=== PATIENT | female | born 1975 | race African-American/Black ===

== ENCOUNTER 2019-03-26 23:06 | Emergency (ER) | payer OTHER ==
[2019-03-27] MEDS ORDERED: ONDANSETRON 4 MG/2 ML VIAL ONE (00:08)
[2019-03-27] MEDS ORDERED: MORPHINE 2 MG/ML SYR ONE (00:08)
[2019-03-27 00:10] LABS: Absolute Lymphocytes (CBC) 3.3 K/uL (0.7-4.9); Basophils % 0.5 % (0-1.3); Eosinophils % 1.7 % (0-4.4); Lymphocytes % 30.7 % (15.3-44.8); MPV 10.2 fL (7.6-11.3); Monocytes % 7.7 % (3.3-12.3); RBC Red Blood Cell Count 5.09 M/uL (3.86-4.86)
[2019-03-27 00:25] LABS: Albumin 4.1 g/dL (3.4-5.0); Bilirubin Direct 0.2 mg/dL (0-0.2); Potassium 3.7 mmol/L (3.5-5.1); Protein, Total 8.2 g/dL (6.4-8.2)
[2019-03-27 01:09] LABS: Urine Blood NEGATIVE (NEG); Urine Glucose NEGATIVE (NEG); Urine Protein TRACE (NEG)
--- NOTE | 2019-03-27 02:36 | EDPHYS ---
Physician Documentation [facility] Name: Grayson Morales Age: 43 yrs Sex: Female : 1975 Arrival Date: 03/26/2019 Time: 23:13 Bed 14 Private MD: ED Physician Zak Irving HPI: 03/26 23:20 This 43 yrs old Black Female presents to ER via Ambulatory with complaints of Abdominal jmm Pain. 23:20 The patient presents with abdominal pain in the epigastric area. Onset: The jmm symptoms/episode began/occurred gradually, 1 day(s) ago. The symptoms radiate to back. Associated signs and symptoms: Pertinent negatives: fever. This is a 43 year old female with a history of asthma that presents to the ED with complaints of epigastric abdominal pain which radiates to her back beginning 2 days ago. Patient states having chronic episodes of acid reflux but worse over the past 2 days. . 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 - Social history:: Smoking status: Patient uses tobacco products, smokes one-half pack cigarettes per day, Patient uses alcohol, on a daily basis. street drugs, marijuana. - Ebola Screening: : Patient negative for fever greater than or equal to 101.5 degrees Fahrenheit, and additional compatible Ebola Virus Disease symptoms Patient denies exposure to infectious person Patient denies travel to an Ebola-affected area in the 21 days before illness onset. ROS: 23:20 Constitutional: Negative for fever, chills, and weight loss, Cardiovascular: Negative jmm for chest pain, palpitations, and edema, Respiratory: Negative for shortness of breath, cough, wheezing, and pleuritic chest pain. 23:20 Abdomen/GI: Positive for abdominal pain. 23:20 Back: Positive for radiated pain. 23:20 All other systems are negative. Exam: 23:20 Constitutional: This is a well developed, well nourished patient who is awake, alert, jmm and in no acute distress. Head/Face: atraumatic. Eyes: EOMI, no conjunctival erythema appreciated ENT: Moist Mucus Membranes Neck: Trachea midline, Supple Chest/axilla: Normal chest wall appearance and motion. Cardiovascular: Regular rate and rhythm. No edema appreciated Respiratory: Normal respirations, no respiratory distress appreciated 23:20 Back: Normal ROM Skin: General appearance color normal MS/ Extremity: Moves all extremities, no obvious deformities appreciated, no edema noted to the lower extremities Neuro: Awake and alert, normal gait Psych: Behavior is normal, Mood is normal, Patient is cooperative and pleasant 23:20 Abdomen/GI: Inspection: abdomen appears normal, Bowel sounds: normal, Palpation: soft, moderate abdominal tenderness, in the right upper quadrant and left upper quadrant. Vital Signs: 23:25 BP 168 / 110; Pulse 84; Resp 17; Temp 98.6; Pulse Ox 100% ; Weight 63.05 kg; Height 5 rr5 ft. 7 in. (170.18 cm); Pain 9/10; 03/27 00:00 BP 159 / 92; Pulse 88; Resp 17; Pulse Ox 99% on R/A; rr5 00:30 Pain 0/10; rr5 00:50 BP 152 / 85; Pulse 85; Resp 17; Pulse Ox 99% on R/A; rr5 01:50 BP 144 / 80; Pulse 76; Resp 19; Pulse Ox 99% on R/A; Pain 0/10; rr5 02:48 BP 131 / 75; Pulse 72; Resp 17; Temp 98.3; Pulse Ox 99% ; Pain 0/10; rr5 03/26 23:25 Body Mass Index 21.77 (63.05 kg, 170.18 cm) rr5 MDM: 03/26 23:20 Patient medically screened. [facility] 03/27 02:35 Data reviewed: vital signs, nurses notes. Counseling: I had a detailed discussion with ana the patient and/or guardian regarding: the historical points, exam findings, and any diagnostic results supporting the discharge/admit diagnosis, lab results, radiology results, the need for outpatient follow up, to return to the emergency department if symptoms worsen or persist or if there are any questions or concerns that arise at home. ED course: Pain relieved in the ED. Patient is advised to follow up with pcp or gi for further evaluation. patient understood and agrees with the plan of care. . 03/26 23:32 Order name: Basic Metabolic Panel [facility] 03/26 23:32 Order name: CBC with Diff [facility] 03/26 23:32 Order name: Creatinine for Radiology [facility] 03/26 23:32 Order name: Hepatic Function; Complete Time: 00:31 [facility] 03/26 23:32 Order name: Lipase; Complete Time: 00:31 [facility] 03/27 00:14 Order name: CBC with Automated Diff; Complete Time: 00:16 [facility] 03/26 23:32 Order name: CT Abd/Pelvis - IV Contrast Only [facility] 03/27 00:17 Order name: Urine Dipstick--Ancillary (enter results); Complete Time: 01:44 [facility] 03/27 00:17 Order name: Urine --Ancillary (enter results) [facility] 03/27 00:26 Order name: Creatinine (Radiology Only); Complete Time: 00:31 [facility] 03/27 00:27 Order name: Basic Metabolic Panel; Complete Time: 00:31 [facility] 03/27 01:11 Order name: Urine --Ancillary; Complete Time: 01:44 [facility] 03/26 23:32 Order name: IV Saline Lock; Complete Time: 23:59 [facility] 03/26 23:32 Order name: Labs collected and sent; Complete Time: 23:59 [facility] 03/26 23:32 Order name: Urine Dipstick-Ancillary (obtain specimen); Complete Time: 23:58 [facility] Administered Medications: 03/26 23:55 Drug: Zofran 4 mg Route: IVP; Site: right forearm; rr5 03/27 00:55 Follow up: Response: No adverse reaction 5 03/26 23:57 Drug: morphine 4 mg Route: IVP; Site: right forearm; rr5 03/27 01:00 Follow up: Response: Marked relief of symptoms rr5 Disposition: 08:23 Co-signature as Attending Physician, Zak Irving MD I agree with the assessment and hoang plan of care. Disposition: 03/27/19 02:36 Discharged to Home. Impression: Generalized abdominal pain. - Condition is Stable. - Discharge Instructions: Abdominal Pain, Adult. - Prescriptions for Zofran ODT 4 mg Oral tablet,disintegrating - place 1 tablet by TRANSLINGUAL route every 4-6 hours; 20 tablet. Bentyl 20 mg Oral Tablet - take 1 tablet by ORAL route every 6 hours As needed; 20 tablet. Ultracet 37.5- 325 mg Oral Tablet - take 1 tablet by ORAL route every 6 hours - for up to 5 days; do not exceed 8 tablets per day.; 12 tablet. - Medication Reconciliation Form, Thank You Letter, Antibiotic Education, Prescription Opioid Use, Work release form, Family Work Release form. - Follow up: Rodrigo Roberto MD; When: 2 - 3 days; Reason: Recheck today's complaints, Continuance of care, Re-evaluation by your physician. Signatures: Dispatcher [employer] EDZak Harrington MD MD cha Mickail, Joel, PA PA Joel Fisher, RN RN rr5 Corrections: (The following items were deleted from the chart) 02:49 02:36 03/27/2019 02:36 Discharged to Home. Impression: Generalized abdominal pain. rr5 Condition is Stable. Forms are Medication Reconciliation Form, Thank You Letter, Antibiotic Education, Prescription Opioid Use. Follow up: Rodrigo Roberto; When: 2 - 3 days; Reason: Recheck today's complaints, Continuance of care, Re-evaluation by your physician. ana
--- NOTE | 2019-03-27 02:36 | ER ---
Nurse's Notes [facility] Name: Grayson Morales Age: 43 yrs Sex: Female : 1975 Arrival Date: 03/26/2019 Time: 23:13 Bed 14 Private MD: Diagnosis: Generalized abdominal pain Presentation: 03/26 23:20 Presenting complaint: Patient states: started yesterday around 1250H in the afternoon rr5 sharp shooting abdominal pain going to my back, i feel bloated too. 30 minutes ago I started to became nauseous. 23:20 Transition of care: patient was not received from another setting of care. Onset of rr5 symptoms was March 25, 2019. Risk Assessment: Do you want to hurt yourself or someone else? Patient reports no desire to harm self or others. Initial Sepsis Screen: Does the patient meet any 2 criteria? No. Patient's initial sepsis screen is negative. Does the patient have a suspected source of infection? No. Patient's initial sepsis screen is negative. Care prior to arrival: Medication(s) given: pepcid, zantac, tums. 23:20 Method Of Arrival: Ambulatory rr5 23:20 Acuity: DEIRDRE 3 rr5 23:20 Note patient denies abnormal BM or urine problem. 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 - Social history:: Smoking status: Patient uses tobacco products, smokes one-half pack cigarettes per day, Patient uses alcohol, on a daily basis. street drugs, marijuana. - Ebola Screening: : Patient negative for fever greater than or equal to 101.5 degrees Fahrenheit, and additional compatible Ebola Virus Disease symptoms Patient denies exposure to infectious person Patient denies travel to an Ebola-affected area in the 21 days before illness onset. Screenin:28 Abuse screen: Denies threats or abuse. Denies injuries from another. Nutritional rr5 screening: No deficits noted. Tuberculosis screening: No symptoms or risk factors identified. Fall Risk IV access (20 points). Total Schneider Fall Scale indicates No Risk (0-24 pts). Assessment: 23:25 General: Appears in no apparent distress. uncomfortable, Behavior is calm, cooperative, rr5 appropriate for age. Pain: Complains of pain in epigastric area Pain radiates to back Pain currently is 9 out of 10 on a pain scale. Quality of pain is described as Pain began gradually, Is intermittent. 23:25 Neuro: Level of Consciousness is awake, alert, obeys commands, Oriented to person, rr5 place, time, situation, Appropriate for age. Cardiovascular: Capillary refill < 3 seconds Patient's skin is warm and dry. Respiratory: Airway is patent Respiratory effort is even, unlabored, Respiratory pattern is regular, symmetrical. GI: Abdomen is flat, Bowel sounds present X 4 quads. Abd is soft Guarding noted in epigastric area Reports upper abdominal pain, bloating, nausea, Patient currently denies diarrhea. : No signs and/or symptoms were reported regarding the genitourinary system. EENT: No signs and/or symptoms were reported regarding the EENT system. Derm: Skin is intact, Skin temperature is warm. Musculoskeletal: Capillary refill < 3 seconds, Range of motion: intact in all extremities. 03/27 00:50 Reassessment: Patient appears in no apparent distress at this time. Patient is alert, rr5 oriented x 3, equal unlabored respirations, skin warm/dry/pink. went to CT scan via wheelchair Patient denies pain at this time. Patient states feeling better. Patient states symptoms have improved. 01:55 Reassessment: Patient appears in no apparent distress at this time. Patient is alert, rr5 oriented x 3, equal unlabored respirations, skin warm/dry/pink. awaiting for result. Patient states feeling better. Patient states symptoms have improved. 02:45 Reassessment: Patient appears in no apparent distress at this time. Patient is alert, rr5 oriented x 3, equal unlabored respirations, skin warm/dry/pink. discharge instruction given and explained without complaints made. Patient denies pain at this time. Patient states feeling better. Patient states symptoms have improved. Vital Signs: 03/26 23:25 BP 168 / 110; Pulse 84; Resp 17; Temp 98.6; Pulse Ox 100% ; Weight 63.05 kg; Height 5 rr5 ft. 7 in. (170.18 cm); Pain 9/10; 03/27 00:00 BP 159 / 92; Pulse 88; Resp 17; Pulse Ox 99% on R/A; rr5 00:30 Pain 0/10; rr5 00:50 BP 152 / 85; Pulse 85; Resp 17; Pulse Ox 99% on R/A; rr5 01:50 BP 144 / 80; Pulse 76; Resp 19; Pulse Ox 99% on R/A; Pain 0/10; rr5 02:48 BP 131 / 75; Pulse 72; Resp 17; Temp 98.3; Pulse Ox 99% ; Pain 0/10; rr5 03/26 23:25 Body Mass Index 21.77 (63.05 kg, 170.18 cm) rr5 ED Course: 03/26 23:13 Patient arrived in ED. es 23:16 Raoul Bates PA is PHCP. jmm 23:16 Zak Irving MD is Attending Physician. jmm 23:21 Joel Jorge, THIAGO is Primary Nurse. rr5 23:24 Triage completed. rr5 23:25 Patient has correct armband on for positive identification. Placed in gown. Bed in low rr5 position. Call light in reach. Side rails up X2. Pulse ox on. NIBP on. 23:25 Arm band placed on. rr5 23:45 No provider procedures requiring assistance completed. Inserted saline lock: 20 gauge rr5 in right forearm, using aseptic technique. Blood collected. 03/27 00:23 Radiology exam delayed due to lab results not completed at this time. (HCG) eh (BUN/Creatinine) test not completed at this time. 01:30 CT completed. Patient tolerated procedure well. Patient moved to CT via wheelchair. Patient moved back from CT. 01:42 CT Abd/Pelvis - IV Contrast Only In Process Unspecified. EDMS 02:36 Rodrigo Roberto MD is Referral Physician. jmm 02:48 IV discontinued, intact, bleeding controlled, No redness/swelling at site. Pressure rr5 dressing applied. Administered Medications: 03/26 23:55 Drug: Zofran 4 mg Route: IVP; Site: right forearm; rr5 03/27 00:55 Follow up: Response: No adverse reaction rr5 03/26 23:57 Drug: morphine 4 mg Route: IVP; Site: right forearm; rr5 03/27 01:00 Follow up: Response: Marked relief of symptoms rr5 Outcome: 02:36 Discharge ordered by MD. perez 02:48 Discharged to home ambulatory, with family. rr5 02:48 Condition: stable 02:48 Discharge instructions given to patient, Instructed on discharge instructions, follow up and referral plans. medication usage, Demonstrated understanding of instructions, follow-up care, medications, Prescriptions given X 3. 02:49 Patient left the ED. rr5 Signatures: Dispatcher [employer] EDRaoul Lay PA PA jmm Salyer, Bandar Garcia Raymond, RN RN rr5
--- NOTE | 2019-03-27 10:09 | RAD REPORT ---
EXAM DESCRIPTION: CT - Abdomen Pelvis W Contrast - 03/27/2019 6:32 am CLINICAL HISTORY: The patient is 43 years old and is Female; abdominal pain TECHNIQUE: Axial computed tomography images of the abdomen and pelvis with intravenous contrast. S agittal and coronal reformatted images were created and reviewed. This CT exam was performed using one or more of the following dose reduction techniques: automated exposure control, adjustment of t he mA and/or kV according to patient size, and/or use of iterative reconstruction technique. COMPARISON: No relevant prior studies available. FINDINGS: LUNG BASES: Unremarkable. No mass. No consolidation. ABDOMEN: LIVER: Unremarkable. No mass. GALLBLADDER AND BILE DUCTS: No calcified stones. No ductal dilation. PANCREAS: No ductal dilation. No mass. SPLEEN: Unremarkable. ADRENALS: Unremarkable. No mass. KIDNEYS AND URETERS: Punctate bilateral intrarenal calcifications are present. The kidneys enhan ce symmetrically. No obstructing renal or ureteral calculus is seen. STOMACH AND BOWEL: The stomach is minimally distended with food contents. A few small bowel loop s within the left upper abdomen are fluid-filled and demonstrate mild mucosal thickening. The remaind er of the small bowel is normal in appearance. Stool is present throughout the colon. There is no bow el obstruction. PELVIS: APPENDIX: The appendix is normal in caliber without surrounding inflammation. BLADDER: The bladder is well distended. REPRODUCTIVE: Unremarkable as visualized. ABDOMEN and PELVIS: INTRAPERITONEAL SPACE: Unremarkable. No free air. No significant fluid collection. BONES/JOINTS: No acute fracture. SOFT TISSUES: The soft tissues are normal. VASCULATURE: Minimal atherosclerosis of the vasculature is present. No abdominal aortic aneury sm. LYMPH NODES: Unremarkable. No enlarged lymph nodes. IMPRESSION: Nonspecific fluid-filled slightly prominent small bowel loops in the left upper quadrant which may be secondary to mild enteritis. No bowel obstruction. Electronically signed by: Aleena Strickland MD 03/27/2019 1:48 AM CDT Due to temporary technical issues with the PACS/Fluency reporting system, reports are being signed by the in house radiologist as a courtesy to ensure prompt reporting. The interpreting radiologist is f ully responsible for the content of the report.
== END 2019-03-27 02:49 | disposition home or self-care (01) ==
LOC: ER 23:06
DX: R10.84 Generalized abdominal pain (principal); F17.210 Nicotine dependence, cigarettes, uncomplicated; Z88.6 Allergy status to analgesic agent
CPT/HCPCS: 36415; 74177; 80048; 80076; 81003; 81025; 83690; 85025; 96374; 96375; 99284; Q9967

== ENCOUNTER 2019-05-28 15:15 | Emergency (ER) | payer OTHER ==
[2019-05-28] MEDS ORDERED: CYCLOBENZAPRINE 10 MG TAB ONE (15:39)
[2019-05-28] MEDS ORDERED: IBUPROFEN 400 MG TAB ONE (15:39)
[2019-05-28] MEDS ORDERED: ACETAMINOPHEN 500 MG TAB ONE (15:40)
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
--- NOTE | 2019-05-28 16:19 | RAD REPORT ---
EXAM DESCRIPTION: Joie Single View05/28/2019 4:03 pm CLINICAL HISTORY: Chest pain COMPARISON: none FINDINGS: The lungs appear clear of acute infiltrate. The heart is normal size IMPRESSION: No acute abnormalities displayed
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
[2019-05-28 16:38] LABS: Urine Blood NEGATIVE (NEG); Urine Glucose NEGATIVE (NEG); Urine Protein NEGATIVE (NEG); Urine Specific Gravity 1.025 (1.005-1.030); Urine pH 6.5 (5.0-7.0)
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
== END 2019-05-28 17:52 | disposition home or self-care (01) ==
LOC: ER 15:15
DX: S16.1XXA Strain of muscle, fascia and tendon at neck level, initial encounter (principal); S46.912A Strain of unspecified muscle, fascia and tendon at shoulder and upper arm level, left arm, initial encounter; V43.52XA Car driver injured in collision with other type car in traffic accident, initial encounter; Y93.89 Activity, other specified; Y92.410 Unspecified street and highway as the place of occurrence of the external cause
CPT/HCPCS: 71045; 72040; 72125; 81003; 81025; 99283

== ENCOUNTER 2019-12-23 12:17 | Emergency (ER) | payer OTHER, SELFPAY ==
--- NOTE | 2019-12-23 14:28 | ER ---
Nurse's Notes [facility] Name: Grayson Morales Age: 44 yrs Sex: Female : 1975 Arrival Date: 12/23/2019 Time: 12:19 Bed 12 Private MD: Diagnosis: Allergic rhinitis, unspecified Presentation: 12/22 12:23 Chief complaint: Patient states: R ear pain, throat pain. Cough and congestion x 2 ca1 weeks. Denies fever. Reports history of allergies and asthma. Coronavirus screen: The patient has NOT traveled to a country currently being monitored by the [facility] within the last 14 days. The patient has NOT had contact with any known and/or suspected case of coronavirus. Ebola Screen: Patient negative for fever greater than or equal to 101.5 degrees Fahrenheit, and additional compatible Ebola Virus Disease symptoms Patient denies exposure to infectious person. Patient denies travel to an Ebola-affected area in the 21 days before illness onset. No symptoms or risks identified at this time. Initial Sepsis Screen: Does the patient meet any 2 criteria? No. Patient's initial sepsis screen is negative. Does the patient have a suspected source of infection? No. Patient's initial sepsis screen is negative. Risk Assessment: Do you want to hurt yourself or someone else? Patient reports no desire to harm self or others. Onset of symptoms was December 23, 2019. 12:23 Method Of Arrival: Ambulatory ca1 12:23 Acuity: DEIRDRE 4 ca1 Historical: - Allergies: 12:25 Aspirin; ca1 - PMHx: 12:25 Asthma; ca1 Screenin:36 Abuse screen: Denies threats or abuse. Denies injuries from another. Nutritional ss screening: No deficits noted. Tuberculosis screening: Never had TB. Fall Risk None identified. Vital Signs: 12:23 BP 150 / 91; Pulse 95; Resp 16 S; Temp 98.3(O); Pulse Ox 99% on R/A; Weight 66.22 kg ca1 (R); Height 5 ft. 4 in. (162.56 cm) (R); Pain 1/10; 12:23 Body Mass Index 25.06 (66.22 kg, 162.56 cm) ca1 ED Course: 12:19 Patient arrived in ED. rg4 12:25 Triage completed. ca1 12:25 Arm band placed on right wrist. ca1 12:56 Ernestine Barajas FNP-C is [facility]. kb 12:57 Brandon Valente MD is Attending Physician. kb 14:05 Ruthie Munoz, THIAGO is Primary Nurse. ss 14:35 No provider procedures requiring assistance completed. Patient did not have IV access ss during this emergency room visit. 14:36 Patient has correct armband on for positive identification. Bed in low position. Call ss light in reach. Side rails up X 1. Administered Medications: 14:32 Drug: predniSONE 40 mg Route: PO; ss Outcome: 14:28 Discharge ordered by . kb 14:35 Discharged to home ambulatory. ss 14:35 Condition: good 14:35 Discharge instructions given to patient, Instructed on discharge instructions, follow up and referral plans. medication usage, Demonstrated understanding of instructions, follow-up care, medications, Prescriptions given X 1. 14:36 Patient left the ED. ss Signatures: Ernestine Barajas FNP-C COMMUNITY WORKER-Jose Danielb Ruthie Munoz RN RN Fransisca Costello rg4 Ceci Ibarra RN RN ca1
--- NOTE | 2019-12-23 14:28 | EDPHYS ---
Physician Documentation [facility] Name: Grayson Morales Age: 44 yrs Sex: Female : 1975 Arrival Date: 12/23/2019 Time: 12:19 Bed 12 Private MD: ED Physician Brandon Valente HPI: 12/22 14:26 This 44 yrs old Black Female presents to ER via Ambulatory with complaints of Allergy kb Symptoms. 14:26 The patient or guardian reports cough, that is intermittent, described as moderate, kb with no sputum. Onset: The symptoms/episode began/occurred 2 week(s) ago. Severity of symptoms: At their worst the symptoms were moderate, in the emergency department the symptoms are unchanged. Modifying factors: The symptoms are alleviated by nothing, the symptoms are aggravated by nothing. Associated signs and symptoms: Pertinent positives: earache, rhinorrhea, sore throat, Pertinent negatives: chest pain, diarrhea, fever, nausea, vomiting. The patient has experienced similar episodes in the past. The patient has not recently seen a physician. 'My allergies are acting up and nothing I've been taking has made it go away. Plus my work is trippin and I need a note to go back.". Historical: - Allergies: 12:25 Aspirin; ca1 - PMHx: 12:25 Asthma; ca1 ROS: 14:22 Constitutional: Negative for fever, chills, and weight loss, Neck: Negative for injury, kb pain, and swelling, Cardiovascular: Negative for chest pain, palpitations, and edema, Abdomen/GI: Negative for abdominal pain, nausea, vomiting, diarrhea, and constipation, Back: Negative for injury and pain, MS/Extremity: Negative for injury and deformity, Skin: Negative for injury, rash, and discoloration, Neuro: Negative for headache, weakness, numbness, tingling, and seizure. 14:22 ENT: Positive for ear pain, rhinorrhea, sinus congestion, sore throat. 14:22 Respiratory: Positive for cough, Negative for dyspnea on exertion, hemoptysis, orthopnea, pleurisy, shortness of breath, sputum production, wheezing. Exam: 14:22 Constitutional: This is a well developed, well nourished patient who is awake, alert, kb and in no acute distress. Head/Face: Normocephalic, atraumatic. ENT: Nares patent. No nasal discharge, no septal abnormalities noted. Tympanic membranes are normal and external auditory canals are clear. Oropharynx with no redness, swelling, or masses, exudates, or evidence of obstruction, uvula midline. Mucous membranes moist. Neck: Trachea midline, no thyromegaly or masses palpated, and no cervical lymphadenopathy. Supple, full range of motion without nuchal rigidity, or vertebral point tenderness. No Meningismus. Chest/axilla: Normal chest wall appearance and motion. Nontender with no deformity. No lesions are appreciated. Cardiovascular: Regular rate and rhythm with a normal S1 and S2. No gallops, murmurs, or rubs. Normal PMI, no JVD. No pulse deficits. Respiratory: Lungs have equal breath sounds bilaterally, clear to auscultation and percussion. No rales, rhonchi or wheezes noted. No increased work of breathing, no retractions or nasal flaring. Abdomen/GI: Soft, non-tender, with normal bowel sounds. No distension or tympany. No guarding or rebound. No evidence of tenderness throughout. Skin: Warm, dry with normal turgor. Normal color with no rashes, no lesions, and no evidence of cellulitis. MS/ Extremity: Pulses equal, no cyanosis. Neurovascular intact. Full, normal range of motion. Neuro: Awake and alert, GCS 15, oriented to person, place, time, and situation. Cranial nerves II-XII grossly intact. Motor strength 5/5 in all extremities. Sensory grossly intact. Cerebellar exam normal. Normal gait. Vital Signs: 12:23 BP 150 / 91; Pulse 95; Resp 16 S; Temp 98.3(O); Pulse Ox 99% on R/A; Weight 66.22 kg ca1 (R); Height 5 ft. 4 in. (162.56 cm) (R); Pain 1/10; 12:23 Body Mass Index 25.06 (66.22 kg, 162.56 cm) ca1 MDM: 13:47 Patient medically screened. kb 14:25 Data reviewed: vital signs, nurses notes. Data interpreted: Pulse oximetry: on room air kb is 99 %. Interpretation: normal. Counseling: I had a detailed discussion with the patient and/or guardian regarding: the historical points, exam findings, and any diagnostic results supporting the discharge/admit diagnosis, lab results, the need for outpatient follow up, a family practitioner, to return to the emergency department if symptoms worsen or persist or if there are any questions or concerns that arise at home. 12/22 12:25 Order name: Strep; Complete Time: 12:57 ca1 12/22 12:26 Order name: Flu; Complete Time: 12:57 ca1 12/22 12:56 Order name: Throat Culture EDMS Administered Medications: 14:32 Drug: predniSONE 40 mg Route: PO; ss Disposition: 15:27 Co-signature as Attending Physician, Brandon Valente MD. rn Disposition: 12/23/19 14:28 Discharged to Home. Impression: Allergic rhinitis, unspecified. - Condition is Stable. - Discharge Instructions: Allergic Rhinitis. - Prescriptions for Prednisone 20 mg Oral Tablet - take 1 tablet by ORAL route once daily for 5 days; 5 tablet. - Medication Reconciliation Form, Thank You Letter, Antibiotic Education, Prescription Opioid Use form. - Follow up: Emergency Department; When: As needed; Reason: Worsening of condition. Follow up: Private Physician; When: 2 - 3 days; Reason: Recheck today's complaints, Continuance of care, Re-evaluation by your physician. Signatures: Dispatcher [employer] EDGA Ernestine Barajas, MACHINE OPERATOR HOP WORKER-C MACHINE OPERATOR HOP WORKER-Ckb Brandon Valente MD MD rn Smirch, Shelby, RN RN ss Ceci Ibarra RN RN ca1 Corrections: (The following items were deleted from the chart) 14:36 14:28 12/23/2019 14:28 Discharged to Home. Impression: Allergic rhinitis, unspecified. ss Condition is Stable. Forms are Medication Reconciliation Form, Thank You Letter, Antibiotic Education, Prescription Opioid Use. Follow up: Emergency Department; When: As needed; Reason: Worsening of condition. Follow up: Private Physician; When: 2 - 3 days; Reason: Recheck today's complaints, Continuance of care, Re-evaluation by your physician. kb
[2019-12-23] MEDS ORDERED: predniSONE 20 MG TAB ONE (14:35)
[2019-12-23 15:09] VITALS: BP 150/91; TEMP 98.3; O2SAT 99
== END 2019-12-23 14:36 | disposition home or self-care (01) ==
LOC: ER 12:17
DX: J30.9 Allergic rhinitis, unspecified (principal)
CPT/HCPCS: 87070; 87081; 87804; 99283; J7512

== ENCOUNTER 2020-04-05 13:27 | Emergency (ER) | payer SELFPAY, OTHER ==
[2020-04-05] MEDS ORDERED: dexAMETHasone 10 MG/ML VIAL ONE (16:15)
--- NOTE | 2020-04-05 16:22 | ER ---
Nurse's Notes [facility] Name: Grayson Morales Age: 44 yrs Sex: Female : 1975 Arrival Date: 04/05/2020 Time: 13:30 Bed 20 Private MD: Haider Marquez H Diagnosis: Acute pharyngitis Presentation: 04/05 13:34 Chief complaint: Patient states: "stuffy nose", eye headache, body aches. sweating sv started last week. Coronavirus screen: Surgical mask placed on patient. Patient moved to private room, placed in contact and droplet isolation with eye protection until further assessment. Patient reports a cough. Patient reports shortness of breath or difficulty breathing. Patient denies measured and/or subjective temperature greater than 100.4F prior to today's visit. Patient denies travel on a cruise ship or to a country the [facility] currently lists as an affected area. Patient denies contact with known and/or suspected case of COVID-19. Ebola Screen: No symptoms or risks identified at this time. Risk Assessment: Do you want to hurt yourself or someone else? Patient reports no desire to harm self or others. Onset of symptoms was March 2020. 13:34 Method Of Arrival: Ambulatory sv 13:34 Acuity: DEIRDRE 3 sv 13:35 Initial Sepsis Screen: Does the patient meet any 2 criteria? HR > 90 bpm. No. Patient's sv initial sepsis screen is negative. Does the patient have a suspected source of infection? No. Patient's initial sepsis screen is negative. Triage Assessment: 13:35 General: Appears in no apparent distress. uncomfortable, Behavior is calm, cooperative, sv appropriate for age. Neuro: Level of Consciousness is awake, alert, obeys commands, Oriented to person, place, time, situation, Gait is steady. Respiratory: Reports shortness of breath cough that is Respiratory effort is even, unlabored. Historical: - Allergies: 13:35 Aspirin; sv - PMHx: 13:35 Asthma; sv - Social history:: Smoking status: Patient reports the use of cigarette tobacco products, smokes one-half pack cigarettes per day. Screenin:49 Abuse screen: Denies threats or abuse. Nutritional screening: No deficits noted. Tuberculosis screening: No symptoms or risk factors identified. Fall Risk None identified. Assessment: 14:00 General: Appears uncomfortable, Behavior is calm, cooperative, appropriate for age. General: Reports night sweats Denies fever. Pain: Complains of pain in forehead. Neuro: Level of Consciousness is awake, alert, obeys commands, Oriented to person, place, time, situation. Cardiovascular: Heart tones S1 S2 present Capillary refill < 3 seconds Patient's skin is warm and dry. Respiratory: Airway is patent Respiratory effort is even, unlabored, Respiratory pattern is regular, symmetrical. GI:. EENT: Nares with drainage noted bilaterally Throat Pt states that throat feels scratchy from the drainage going down the back of her throat. Derm: Skin is intact, is healthy with good turgor. Vital Signs: 13:35 BP 133 / 87; Pulse 96; Resp 18; Temp 98.1; Pulse Ox 97% ; Weight 68.04 kg; Height 5 ft. sv 4 in. (162.56 cm); 13:35 Body Mass Index 25.75 (68.04 kg, 162.56 cm) sv ED Course: 13:30 Patient arrived in ED. mr 13:30 Haider Marquez DO is Private Physician. mr 13:34 Arm band placed on. sv 13:35 Triage completed. 13:39 Raoul Bates PA is PHCP. [facility] 13:39 Zak Irving MD is Attending Physician. [facility] 14:04 Yolanda Neal, RN is Primary Nurse. 14:49 Patient has correct armband on for positive identification. Bed in low position. Call light in reach. Side rails up X 1. 16:21 Haider Marquez DO is Referral Physician. [facility] 16:42 No provider procedures requiring assistance completed. Patient did not have IV access during this emergency room visit. Administered Medications: 16:16 Drug: Decadron 10 mg Route: IM; Site: right ventrogluteal; 16:41 Follow up: Response: No adverse reaction Outcome: 16:22 Discharge ordered by . [facility] 16:42 Discharged to home ambulatory. 16:42 Condition: good 16:42 Discharge instructions given to patient, Instructed on discharge instructions, follow up and referral plans. Demonstrated understanding of instructions, follow-up care, medications, Prescriptions given X 1. 16:42 Patient left the ED. Addendum: 04/07/2020 17:22 Addendum: Other pt notified of negative COVID 19 swab results. Pt advised to remain in d m5 isolation until symptom free for 3 days, to return to the ED for worsening symptoms and to follow up with PCP. Signatures: Maria Luz Whalen, RN RN dm5 Florinda Parker RN RN Raoul Bates PA PA jmm Rivera, Mary mr Harris, Yolanda RN THIAGO Corrections: (The following items were deleted from the chart) 04/05 13:38 13:34 Chief complaint: Patient states: "stuffy nose", eye headache, body aches started sv last week. sv 13:38 13:34 Coronavirus screen: Surgical mask placed on patient. Patient moved to private sv room, placed in contact and droplet isolation with eye protection until further assessment. Patient reports a cough. Patient reports shortness of breath or difficulty breathing. Patient denies measured and/or subjective temperature greater than 100.4F prior to today's visit. Patient denies travel on a cruise ship or to a country the [facility] currently lists as an affected area. Patient denies contact with known and/or suspected case of COVID-19. sv 13:38 13:35 Pulse 96bpm; Resp 18bpm; Pulse Ox 97%; Temp 98.1F; 68.04 kg; Height 5 ft. 4 in.; sv BMI: 25.7; sv
--- NOTE | 2020-04-05 16:23 | EDPHYS ---
Physician Documentation [facility] Name: Grayson Morales Age: 44 yrs Sex: Female : 1975 Arrival Date: 04/05/2020 Time: 13:30 Bed 20 Private MD: Haider Marquez H ED Physician Zak Irving HPI: 04/05 13:48 This 44 yrs old Black Female presents to ER via Ambulatory with complaints of Sinus jmm Congestion. 13:48 The patient or guardian reports congestion, sore throat. Onset: The symptoms/episode jmm began/occurred gradually, 1 week(s) ago. Modifying factors: The symptoms are alleviated by nothing, the symptoms are aggravated by nothing. Associated signs and symptoms: Pertinent positives: rhinorrhea, sore throat. This is a 44 year old female with a history of asthma that presents to the ED with complaints of congestion, chills, sore throat beginning approx 1 week ago. Denies fever. . Historical: - Allergies: 13:35 Aspirin; sv - PMHx: 13:35 Asthma; sv - Social history:: Smoking status: Patient reports the use of cigarette tobacco products, smokes one-half pack cigarettes per day. ROS: 13:48 Cardiovascular: Negative for chest pain, palpitations, and edema, Respiratory: Negative jmm for shortness of breath, cough, wheezing, and pleuritic chest pain. 13:48 Constitutional: Positive for body aches, chills, Negative for fever. 13:48 All other systems are negative. Exam: 13:48 Constitutional: This is a well developed, well nourished patient who is awake, alert, jmm and in no acute distress. Head/Face: atraumatic. Eyes: EOMI, no conjunctival erythema appreciated ENT: Moist Mucus Membranes Neck: Trachea midline, Supple Chest/axilla: Normal chest wall appearance and motion. Cardiovascular: Regular rate and rhythm. No edema appreciated Respiratory: Normal respirations, no respiratory distress appreciated Abdomen/GI: Non distended, soft Back: Normal ROM Skin: General appearance color normal MS/ Extremity: Moves all extremities, no obvious deformities appreciated, no edema noted to the lower extremities Neuro: Awake and alert, normal gait Psych: Behavior is normal, Mood is normal, Patient is cooperative and pleasant Vital Signs: 13:35 BP 133 / 87; Pulse 96; Resp 18; Temp 98.1; Pulse Ox 97% ; Weight 68.04 kg; Height 5 ft. sv 4 in. (162.56 cm); 13:35 Body Mass Index 25.75 (68.04 kg, 162.56 cm) sv MDM: 13:48 Patient medically screened. [facility] 16:20 Data reviewed: vital signs, nurses notes. Counseling: I had a detailed discussion with [facility] the patient and/or guardian regarding: the historical points, exam findings, and any diagnostic results supporting the discharge/admit diagnosis, lab results, radiology results, the need for outpatient follow up, to return to the emergency department if symptoms worsen or persist or if there are any questions or concerns that arise at home. ED course: Patient is alert and non toxic in appearance in the ED. Normal VS. Patient is advised to return to the ED if symptoms worsen. Patient understood and agrees with the plan of care. . 04/05 14:00 Order name: COVID-19 [facility] 04/05 14:00 Order name: Flu; Complete Time: 16:20 [facility] 04/05 14:00 Order name: Strep; Complete Time: 16:20 [facility] 04/05 16:13 Order name: Throat Culture [facility] 04/05 14:00 Order name: Droplet/Contact Precautions; Complete Time: 14:37 [facility] 04/05 14:00 Order name: Labs collected and sent; Complete Time: 14:37 [facility] 04/05 14:00 Order name: O2 Per Protocol; Complete Time: 14:37 [facility] Administered Medications: 16:16 Drug: Decadron 10 mg Route: IM; Site: right ventrogluteal; 16:41 Follow up: Response: No adverse reaction Disposition: 04/06 13:20 Co-signature as Attending Physician, Zak Irving MD I agree with the assessment and hoang plan of care. Disposition: 04/05/20 16:22 Discharged to Home. Impression: Acute pharyngitis. - Condition is Stable. - Discharge Instructions: Pharyngitis. - Prescriptions for Amoxicillin 875 mg Oral Tablet - take 1 tablet by ORAL route every 12 hours for 10 days; 20 tablet. - Medication Reconciliation Form, Thank You Letter, Antibiotic Education, Prescription Opioid Use, Work release form form. - Follow up: Marquez, Becky-Gee, DO; When: 2 - 3 days; Reason: Recheck today's complaints, Continuance of care, Re-evaluation by your physician. Signatures: Dispatcher [employer] Florinda Warren, RN Zak Mccoy MD MD cha Mickail, Joel, PA PA jmm Harris, Amy, RN RN Corrections: (The following items were deleted from the chart) 04/05 16:42 16:22 04/05/2020 16:22 Discharged to Home. Impression: Acute pharyngitis. Condition is ah Stable. Forms are Medication Reconciliation Form, Thank You Letter, Antibiotic Education, Prescription Opioid Use. Follow up: Haider Marquez; When: 2 - 3 days; Reason: Recheck today's complaints, Continuance of care, Re-evaluation by your physician. ana
[2020-04-05 16:47] VITALS: BP 133/87; TEMP 98.1; O2SAT 97
== END 2020-04-05 16:42 | disposition home or self-care (01) ==
LOC: ER 13:27
DX: J02.9 Acute pharyngitis, unspecified (principal); Z20.828 Contact with and (suspected) exposure to other viral communicable diseases; F17.210 Nicotine dependence, cigarettes, uncomplicated; Z88.6 Allergy status to analgesic agent
CPT/HCPCS: 87070; 87081; 87804; 96372; 99283; J1100; U0001

== ENCOUNTER 2023-02-15 05:56 | Emergency (ER) | payer SELFPAY ==
--- OUTSIDE RECORDS SUMMARY | 2023-02-15 05:59 | XMS REPORT | Continuity of Care Document ---
:1975 Author Organization [facility] t Address [address] [place] [address] Care Team Providers Name Role Phone Marii Leija Primary Care Physician Leonarda Malhotra RN Attending Clinician Unavailable Dottie DAS, Darron Attending Clinician Unavailable Briseida Ruiz PA-C Attending Clinician Mary Jo Kaplan Attending Clinician Payers Payer Name Policy Type Policy Number Effective Date Expiration Date S ource Problems Condition Condition Condition Status Onset Resolution Last Treating Co mments Source Name Details Category Date Date Treatment Clinician Date Alcohol Alcohol Disease Active Univers abuse abuse 3-20 ity of 00:00: [place] [facility] Marijuana Marijuana Disease Active Uni vers abuse abuse 3-20 ity of 00:00: [facility] Cocaine Cocaine Disease Active Univers abuse abuse 3-20 ity of 00:00: [place] [facility] Contracept Contracept Disease Active U nivers demario demario 3-20 ity [place] [facility] Nexplanon Nexplanon Disease Active Uni vers removal removal 11-05 ity of 00:00: [facility] Well woman Well woman Disease Active Overview : Univers exam exam 11-05 Formattin ity of 00:00: g of this 00 note Medical might be Branch different from the original. 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 Powerhouse [employer] Utility Tobacco Tobacco Disease Active Univers use use 11-05 ity of disorder disorder 00:00: [place] 00 [facility] Branch Irregular Irregular Disease Active Uni vers menstrual menstrual 11-05 ity of cycle cycle 00:00: [place] 00 [facility] [place] Allergies, Adverse Reactions, Alerts Allergy Allergy Status Severity Reaction(s) Onset Inactive Treating Comm ents Source Name Type Date Date Clinician Aspirin Propensi Active Shortness of U nivers ty to Breath 11-03 ity of adverse 00:00: [place] reaction 00 Medical s Branch ASPIRIN DRUG Active SOB Univers INGREDI 11-03 ity of 00:00: [place] 00 [facility] [place] Social History Social Habit Start Date Stop Date Quantity Comments Source History of tobacco Cigarette Smoker University of use [facility] Exposure to Yes University of SARS-CoV-2 (event) [facility] Cigarettes smoked 2021-06-17 2021-06-17 Univers ity of current (pack per 00:00:00 00:00:00 ) - Reported Branch Cigarette 2021-06-17 2021-06-17 University of pack-years 00:00:00 00:00:00 [facility] Tobacco use and 2021-06-17 2021-06-17 Never used Universit y of exposure 00:00:00 00:00:00 [facility] Alcohol intake 2021-06-17 2021-06-17 .86 /d University of 00:00:00 00:00:00 [facility] Tobacco Comment 2017-12-25 2017-12-25 10 cigarettes per Un iversity of 00:00:00 00:00:00 day [facility] Sex Assigned At [birth year] Universit y of 00:00:00 00:00:00 [facility] Smoking Status Start Date Stop Date Source Current every day smoker 2021-06-17 00:00:00 Uni versity of [facility] Medications Ordered Filled Start Stop Current Ordering Indication Dosage Frequency Signature Comments Components Source Medication Medication Date Date Medication? Clinician (SIG) Name Name sheridan Yes [id number] 250mg Take 1 Univers n 250 mg 9-10 tablet by ity of tablet 00:00: mouth [place] 00 daily. Medical Take 500 Branch mg day 1, then 250 mg days 2 to 5. bromphenira Yes [id number] 5mL Take 5 mL Univers mine-pseudo 9-10 by mouth 4 it y of ephedrine-D 00:00: (four[place] (BROMFED 00 times Medical DM) 2-30-10 daily as Bran ch mg/5 mL needed for syrup Congestion /Allergies . albuterol Yes [id number] 2{puff} Inhale 2 Univers 90 9-10 Puffs ity of mcg/actuati 00:00: every 6 Rom as on inhaler 00 (six) Medical hours as Branch needed for Wheezing or Shortness of Breath. cetirizine Yes [id number] 10mg Take 1 Univers 10 mg 9-10 tablet by ity of tablet 00:00: mouth [place] 00 daily. Medical Branch iwonaromyci Yes [id number] 250mg Take 1 Univers n 250 mg 9-10 tablet by ity of tablet 00:00: mouth [place] 00 daily. Medical Take 500 Branch mg day 1, then 250 mg days 2 to 5. bromphenira Yes [id number] 5mL Take 5 mL Univers mine-pseudo 9-10 by mouth 4 it y of ephedrine-D 00:00: (four[place] (BROMFED 00 times Medical DM) 2-30-10 daily as Bran ch mg/5 mL needed for syrup Congestion /Allergies . albuterol Yes [id number] 2{puff} Inhale 2 Univers 90 9-10 Puffs ity of mcg/actuati 00:00: every 6 Rom as on inhaler 00 (six) Medical hours as Branch needed for Wheezing or Shortness of Breath. cetirizine Yes [id number] 10mg Take 1 Univers 10 mg 9-10 tablet by ity of tablet 00:00: mouth [place] 00 daily. Medical Branch azithromyci Yes [id number] 250mg Take 1 Univers n 250 mg 9-10 tablet by ity of tablet 00:00: mouth [place] 00 daily. Medical Take 500 Branch mg day 1, then 250 mg days 2 to 5. bromphenira 0 Yes [id number] 5mL Take 5 mL Univers mine-pseudo 9-10 by mouth 4 it y of ephedrine-D 00:00: (four[place] (BROMFED 00 times Medical DM) 2-30-10 daily as Bran ch mg/5 mL needed for syrup Congestion /Allergies . albuterol Yes [id number] 2{puff} Inhale 2 Univers 90 9-10 Puffs ity of mcg/actuati 00:00: every 6 Rom as on inhaler 00 (six) Medical hours as Branch needed for Wheezing or Shortness of Breath. cetirizine Yes [id number] 10mg Take 1 Univers 10 mg 9-10 tablet by ity of tablet 00:00: mouth [place] 00 daily. Medical Branch azithromyci Yes [id number] 250mg Take 1 Univers n 250 mg 9-10 tablet by ity of tablet 00:00: mouth [place] 00 daily. Medical Take 500 Branch mg day 1, then 250 mg days 2 to 5. bromphenira Yes [id number] 5mL Take 5 mL Univers mine-pseudo 9-10 by mouth 4 it y of ephedrine-D 00:00: (four[place] (BROMFED 00 times Medical DM) 2-30-10 daily as Bran ch mg/5 mL needed for syrup Congestion /Allergies . albuterol Yes [id number] 2{puff} Inhale 2 Univers 90 9-10 Puffs ity of mcg/actuati 00:00: every 6 Rom as on inhaler 00 (six) Medical hours as Branch needed for Wheezing or Shortness of Breath. cetirizine 0 Yes [id number] 10mg Take 1 Univers 10 mg 9-10 tablet by ity of tablet 00:00: mouth [place] 00 daily. Medical Branch azithromyci 0 Yes [id number] 250mg Take 1 Univers n 250 mg 9-10 tablet by ity of tablet 00:00: mouth [place] 00 daily. Medical Take 500 Branch mg day 1, then 250 mg days 2 to 5. bromphenira Yes [id number] 5mL Take 5 mL Univers mine-pseudo 9-10 by mouth 4 it y of ephedrine-D 00:00: (four[place] (BROMFED 00 times Medical DM) 2-30-10 daily as Bran ch mg/5 mL needed for syrup Congestion /Allergies . albuterol Yes [id number] 2{puff} Inhale 2 Univers 90 9-10 Puffs ity of mcg/actuati 00:00: every 6 Rom as on inhaler 00 (six) Medical hours as Branch needed for Wheezing or Shortness of Breath. cetirizine Yes [id number] 10mg Take 1 Univers 10 mg 9-10 tablet by ity of tablet 00:00: mouth [place] 00 daily. Medical Branch ALBUTEROL Yes Inhale. Unive rs SULFATE 3-20 ity of (VENTOLIN 15:20: [place] HFA INHALE) 29 Medical Branch ALBUTEROL Yes Inhale. Unive rs SULFATE 3-20 ity of (PROVENTIL 15:20: [place] INHALE) 29 Medical Branch ALBUTEROL Yes Inhale. Unive rs SULFATE 3-20 ity of (VENTOLIN 10:20: [place] HFA INHALE) 29 Medical Branch ALBUTEROL Yes Inhale. Unive rs SULFATE 3-20 ity of (PROVENTIL 10:20: [place] INHALE) 29 Medical Branch ALBUTEROL Yes Inhale. Unive rs SULFATE 3-20 ity of (VENTOLIN 10:20: [place] HFA INHALE) 29 Medical Branch ALBUTEROL Yes Inhale. Unive rs SULFATE 3-20 ity of (PROVENTIL 10:20: [place] INHALE) 29 Medical Branch ALBUTEROL Yes Inhale. Unive rs SULFATE 3-20 ity of (VENTOLIN 10:20: [place] HFA INHALE) 29 Medical Branch ALBUTEROL Yes Inhale. Unive rs SULFATE 3-20 ity of (PROVENTIL 10:20: [place] INHALE) 29 Medical Branch ALBUTEROL Yes Inhale. Unive rs SULFATE 3-20 ity of (VENTOLIN 10:20: [place] HFA INHALE) 29 Medical Branch ALBUTEROL 2018-0 Yes Inhale. Unive rs SULFATE 3-20 ity of (PROVENTIL 10:20: [place] INHALE) 29 [facility] [place] Immunizations Ordered Filled Immunization Date Status Comments Sourc e Immunization Name Name TD 2014-11-03 Completed University of 00:00:00 [facility] TD 2014-11-03 Completed University of 00:00:00 [facility] TDAP 2014-11-03 Completed University of 00:00:00 [facility] TDAP 2014-11-03 Completed [facility] Com[facility] University of 00:00:00 [facility] Vital Signs Vital Name Observation Time Observation Value Comments Source Systolic blood 2021-06-17 21:53:00 137 mm[Hg] Univer sity of pressure [facility] Diastolic blood 2021-06-17 21:53:00 87 mm[Hg] Unive rsity of pressure [facility] Heart rate 2021-06-17 21:53:00 100 /min [facility] Body temperature 2021-06-17 21:53:00 [facility].78 [facility] rate 2021-06-17 21:53:00 18 /min [facility] Body height 2021-06-17 21:53:00 162.6 cm [facility] Oxygen saturation in 2021-06-17 21:53:00 98 /min [facility] Arterial blood by [facility] Pulse oximetry Branch Procedures This patient has no known procedures. Encounters Start End Encounter Admission Attending Care Care Encounter Source Date/Time Date/Time Type Type Clinicians Facility Department ID 2021-06-20 2021-06-20 Letter SIMI Malhotra [id number] Univers 00:00:00 00:00:00 (Out) Leonarda NUÑEZ [id number] it y of [facility] [id number] Rom as [phone] [address] 2021-06-20 2021-06-20 Telephone SIMI Sinclair [id number] Univers 00:00:00 00:00:00 Darron NUÑEZ [id number] ity of [facility] [id number] Rom as [id number] [address] 2021-06-17 2021-06-17 Urgent Briseida Ruiz [facility] [id number] Univers 14:53:50 17:11:21 [facility] [id number] ity [facility] [id number] Rom as [place]?Blea [id number] [facility] [address] Medical Office Building 2021-06-17 2021-06-[address] [facility] [id number] Univers 14:00:00 14:00:00 ity [facility] Results This patient has no known results.
[2023-02-15 06:44] LABS: Absolute Lymphocytes (CBC) 2.6 K/uL (0.7-4.9); Hematocrit 43.2 % (36.0-45.0); Lymphocytes % 26.8 % (15.3-44.8); MCV 89.7 fL (80-100); MPV 9.4 fL (7.6-11.3); RBC Red Blood Cell Count 4.82 M/uL (3.86-4.86)
[2023-02-15] MEDS ORDERED: FENTANYL CITR 100 MCG/2 ML ONE (06:50)
[2023-02-15] MEDS ORDERED: AMLODIPINE 10 MG TAB ONE (06:50)
[2023-02-15] MEDS ORDERED: ONDANSETRON 4 MG/2 ML VIAL ONE (07:00)
[2023-02-15] MEDS ORDERED: NA CHLORIDE 0.9% 500 ML ONE (07:00)
[2023-02-15] MEDS ORDERED: NA CHLORIDE 0.9% 1,000 ML ONE (07:00)
[2023-02-15 07:04] LABS: Potassium 3.5 mEq/L (3.5-5.1); Troponin High Sensitivity 9.7 pg/mL (<58.9)
[2023-02-15] MEDS ORDERED: ACETAMINOPHEN 500 MG TAB ONE (08:09)
[2023-02-15] MEDS ORDERED: FOLIC ACID 5 MG/ML VIAL ONE (08:10)
--- NOTE | 2023-02-15 08:10 | RAD REPORT ---
EXAM DESCRIPTION: CT - Head Brain Wo Cont - 02/15/2023 7:30 am CLINICAL HISTORY: HEADACHE COMPARISON: C Spine Wo Con dated 05/28/2019; Head angio dated 02/15/2023 TECHNIQUE: Noncontrast head CT images ad were obtained without IV contrast. Multiplanar reformats we re generated and reviewed. All CT scans are performed using dose optimization technique as appropriate and may include automated exposure control or mA/KV adjustment according to patient size. FINDINGS: No intracranial hemorrhage, mass, or edema. Midline structures are unremarkable. Normal ventricular caliber for age. Williamson-white matter differentiation is preserved, without evidence of acute infarct. No abnormal extra- axial fluid collections. Mastoid air cells and visualized portions of the paranasal sinuses are clear. No acute bony findings. IMPRESSION: No evidence of an acute intracranial process.
--- NOTE | 2023-02-15 08:14 | RAD REPORT ---
EXAM DESCRIPTION: CT - Head angio - 02/15/2023 7:30 am CLINICAL HISTORY: HEADACHE Left-sided tingling COMPARISON: Head Brain Wo Cont dated 02/15/2023 TECHNIQUE: Axial CT angiography images of the head was performed with multiplanar and maximum intens ity projection reconstructions. Images performed following intravenous administration of 95mL Isovue 370. All CT scans are performed using dose optimization technique as appropriate and may include automated exposure control or mA/KV adjustment according to patient size. FINDINGS: No evidence of large vessel occlusion. No evidence of aneurysm or dissection flap is detec bryn. No flow-limiting stenosis or vascular malformation identified. Antegrade flow is seen in the vertebral arteries. The vertebral arteries are codominant. The visualized dural venous sinuses are grossly patent. Mucous retention cyst seen at the base of the left maxillary sinus. Scattered inflammatory mucosal th ickening in the ethmoidal air cells. IMPRESSION: No evidence of large vessel occlusion or flow-limiting stenosis.
--- NOTE | 2023-02-15 08:23 | RAD REPORT ---
EXAM DESCRIPTION: CT - Neck Angio - 02/15/2023 7:30 am CLINICAL HISTORY: PAIN Headache. Left-sided tingling COMPARISON: C Spine Wo Con dated 05/28/2019 TECHNIQUE: Axial CT angiography images of the head was performed with multiplanar and maximum intens ity projection reconstructions. Images performed following intravenous administration of 95mL Isovue 370. All CT scans are performed using dose optimization technique as appropriate and may include automated exposure control or mA/KV adjustment according to patient size. Quantification of carotid stenosis, if any, is performed according to NASCET criteria. FINDINGS: A left aortic arch is identified with normal three vessel configuration of the great vesse ls. No significant flow abnormality is seen of the common carotid bilaterally. No significant stenosis is identified involving the cervical segments of both internal carotid arteri es. Normal flow is seen within both vertebral arteries. Right thyroid 2 centimeter hypoattenuating nodule, grossly stable in size, not well characterized on CT. Dental and periodontal disease with periapical collections along the 3 right mandibular molars. IMPRESSION: No significant flow abnormality of the neck vessels is identified. Incidental findings as above.
[2023-02-15 08:27] LABS: Urine Bacteria None Seen /HPF (<20); Urine Bilirubin NEGATIVE (Negative); Urine Blood Negative (Negative); Urine Clarity Clear (Clear); Urine Color Light-Yellow (Yellow); Urine Glucose NEGATIVE (Negative); Urine Mucus Slight /HPF (None Seen); Urine Protein TRACE (Negative); Urine Urobilinogen 1+ (Normal)
[2023-02-15 08:28] LABS: Specific Gravity > 1.030 (1.005-1.030)
--- NOTE | 2023-02-15 08:28 | RAD REPORT ---
EXAM DESCRIPTION: MRI - Brain Wo Cont - 02/15/2023 7:58 am CLINICAL HISTORY: TIA;Headache COMPARISON: Head CT and CT angiogram of the same day TECHNIQUE: Multiplanar multisequence MRI of the brain performed without IV contrast. FINDINGS: No evidence of acute infarct or other diffusion signal abnormality. No evidence of acute intracranial hemorrhage or abnormal extra-axial fluid collections. Ventricular caliber within normal for age. Midline structures are unremarkable. 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 No significant white matter signal abnormalities. No mass effect or midline shift. Major vascular flow voids are preserved. Mastoid air cells are clear. Mucous retention cyst in the left maxillary sinus. IMPRESSION: No acute intracranial process. No evidence of ventriculomegaly or mass effect.
--- NOTE | 2023-02-15 08:54 | RAD REPORT ---
EXAM DESCRIPTION: [place] Single View02/15/2023 6:45 am CLINICAL HISTORY: CHEST PAIN COMPARISON: Chest Single View dated 05/28/2019 TECHNIQUE: Portable AP view of the chest. FINDINGS: The lungs are clear. No pneumothorax or effusion. The cardiomediastinal contours are unrem arkable. IMPRESSION: No acute cardiopulmonary process.
--- NOTE | 2023-02-15 09:23 | EDPHYS ---
Physician Documentation [facility] Name: Grayson Morales Age: 47 yrs Sex: Female : 1975 Arrival Date: 02/15/2023 Time: 05:56 Bed 7 Private MD: LAURA Physician Zak Irving HPI: 02/15 07:02 This 47 yrs old Black Female presents to ER via Ambulatory with complaints of Pain All hoang Over. 07:02 The patient complains of pain to the top of head, forehead, left frontal area, left hoang side of the back of head, left occipital area, left base of the skull, right frontal area, right side of the back of head, right occipital area and right base of the skull. The patient describes the headache as constant. Onset: The symptoms/episode began/occurred at 02:30. Associated signs and symptoms: Pertinent positives: nausea. Severity of symptoms: At its worst the pain was moderate, in the emergency department the pain is unchanged. Headache History: Denies prior headaches. The symptoms are alleviated by nothing. the symptoms are aggravated by nothing. The patient has not experienced similar symptoms in the past. 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 - Social history:: Smoking status: Patient reports the use of cigarette tobacco products, smokes one pack cigarettes per day. ROS: 07:04 Constitutional: Negative for fever, chills, and weight loss, Eyes: Negative for injury, hoang pain, redness, and discharge, ENT: Negative for injury, pain, and discharge, Neck: Negative for injury, pain, and swelling, Cardiovascular: Negative for chest pain, palpitations, and edema, Respiratory: Negative for shortness of breath, cough, wheezing, and pleuritic chest pain, Abdomen/GI: Negative for abdominal pain, nausea, vomiting, diarrhea, and constipation, Back: Negative for injury and pain, : Negative for injury, bleeding, discharge, and swelling, MS/Extremity: Negative for injury and deformity, Skin: Negative for injury, rash, and discoloration, Psych: Negative for depression, anxiety, suicide ideation, homicidal ideation, and hallucinations, Allergy/Immunology: Negative for hives, rash, and allergies, Endocrine: Negative for neck swelling, polydipsia, polyuria, polyphagia, and marked weight changes, Hematologic/Lymphatic: Negative for swollen nodes, abnormal bleeding, and unusual bruising. 07:04 Neuro: Positive for headache, tingling, of the left arm and left leg. Exam: 07:04 Constitutional: This is a well developed, well nourished patient who is awake, alert, hoang and in no acute distress. Head/Face: Normocephalic, atraumatic. Eyes: Pupils equal round and reactive to light, extra-ocular motions intact. Lids and lashes normal. Conjunctiva and sclera are non-icteric and not injected. Cornea within normal limits. Periorbital areas with no swelling, redness, or edema. ENT: Nares patent. No nasal discharge, no septal abnormalities noted. Tympanic membranes are normal and external auditory canals are clear. Oropharynx with no redness, swelling, or masses, exudates, or evidence of obstruction, uvula midline. Mucous membranes moist. Neck: Trachea midline, no thyromegaly or masses palpated, and no cervical lymphadenopathy. Supple, full range of motion without nuchal rigidity, or vertebral point tenderness. No Meningismus. Chest/axilla: Normal chest wall appearance and motion. Nontender with no deformity. No lesions are appreciated. Cardiovascular: Regular rate and rhythm with a normal S1 and S2. No gallops, murmurs, or rubs. Normal PMI, no JVD. No pulse deficits. Respiratory: Lungs have equal breath sounds bilaterally, clear to auscultation and percussion. No rales, rhonchi or wheezes noted. No increased work of breathing, no retractions or nasal flaring. Abdomen/GI: Soft, non-tender, with normal bowel sounds. No distension or tympany. No guarding or rebound. No evidence of tenderness throughout. Back: No spinal tenderness. No costovertebral tenderness. Full range of motion. Skin: Warm, dry with normal turgor. Normal color with no rashes, no lesions, and no evidence of cellulitis. MS/ Extremity: Pulses equal, no cyanosis. Neurovascular intact. Full, normal range of motion. Neuro: Awake and alert, GCS 15, oriented to person, place, time, and situation. Cranial nerves II-XII grossly intact. Motor strength 5/5 in all extremities. Sensory grossly intact. Cerebellar exam normal. Normal gait. 07:04 ECG was reviewed by the Attending Physician. Vital Signs: 06:23 BP 185 / 105; Pulse 85; Resp 18; Temp 98.5(O); Pulse Ox 98% ; Weight 65.77 kg (M); kl Height 5 ft. 6 in. ; Pain 10/10; 07:03 BP 174 / 104; Pulse 68; Resp 13 S; Pulse Ox 100% on R/A; as6 08:00 BP 155 / 91; Pulse 68; Resp 16; Pulse Ox 100% ; bp 06:23 Body Mass Index 23.40 (65.77 kg, 167.64 cm) kl 06:23 Pain Scale: Adult kl [place] Coma Score: 07:05 Eye Response: spontaneous(4). Motor Response: obeys commands(6). Verbal Response: hoang oriented(5). Total: 15. MDM: 06:19 Patient medically screened. hoang 07:05 Differential diagnosis: cluster headache, cerebral vascular accident, epidural hoang hematoma, hypertensive headache, hyponatremia, intracerebral hemorrhage, migraine, neoplasm, sinusitis, subarachnoid bleed, subdural hematoma, temporal arteritis, tension headache, trigeminal neuralgia, vasomotor headache. Differential Diagnosis altered mental status. Data reviewed: vital signs, nurses notes, lab test result(s), EKG, radiologic studies, CT scan, MRI, plain films. Consideration of Admission/Observation Patient was admitted/placed on observation. Escalation of care including admission/observation considered. I considered the following discharge prescriptions or medication management in the emergency department Medications were administered in the Emergency Department. See MAR. Test considered but Not performed: Ultrasound no carotid doppler. Historians other than the Patient: Spouse/Significant Other: informed. Care significantly affected by the following chronic conditions: asthma. Counseling: I had a detailed discussion with the patient and/or guardian regarding: the historical points, exam findings, and any diagnostic results supporting the discharge/admit diagnosis, the presence of at least one elevated blood pressure reading (>120/80) during this emergency department visit, lab results, radiology results. ED course: no a tnk pat, bed at 1030 pm , awoke with nicholson and left arm tingling, back to bed er at 6 am. 07:09 Transition of care: After a detail discussion of the patient's case, care is hoang transferred to Florinda Martinez MD. 09:20 Response to treatment: the patient's symptoms have markedly improved after treatment. sd2 ED course: Discussed all results with patient and that there is no evidence of stroke or blockage at this time. Headache is significantly improved after treatment. I do not see any further indication that the patient will need further emergent work-up or admission to the hospital at this time although it was discussed. The patient will follow up with her primary care doctor and neurology regarding her symptoms as this is not the first time that she has had this left-sided tingling. She does not have any numbness or weakness and is completely ambulatory and requesting discharge home at this time. Case and care was discussed in full with the patient as well as her at bedside. All questions were answered. The patient is comfortable with plan for discharge and outpatient follow-up and verbalizes understanding of strict return precautions.. 02/15 06:28 Order name: Basic Metabolic Panel; Complete Time: 07:08 02/15 06:28 Order name: CBC with Diff; Complete Time: 07:08 02/15 06:28 Order name: Troponin HS; Complete Time: 07:08 02/15 06:47 Order name: Urinalysis w/ reflexes; Complete Time: 08:35 hoang 02/15 06:28 Order name: CT Head Angio; Complete Time: 08:35 02/15 06:28 Order name: CT Head Brain wo Cont; Complete Time: 08:35 02/15 06:28 Order name: XRAY Chest (1 view); Complete Time: 09:04 02/15 06:29 Order name: CT Neck Angio; Complete Time: 08:35 02/15 07:58 Order name: Brain Wo Cont; Complete Time: 08:35 EDMS 02/15 06:28 Order name: EKG; Complete Time: 06:29 02/15 06:28 Order name: Cardiac monitoring; Complete Time: 07:03 02/15 06:28 Order name: EKG - Nurse/Tech; Complete Time: 07:03 02/15 06:28 Order name: IV Saline Lock; Complete Time: 06:41 02/15 06:28 Order name: Labs collected and sent; Complete Time: 06:41 02/15 06:28 Order name: O2 Per Protocol; Complete Time: 06:41 kl 02/15 06:28 Order name: O2 Sat Monitoring; Complete Time: 06:41 kl EC:04 Rate is 75 beats/min. Rhythm is regular. QRS Be[place] is Normal. NV interval is normal. QRS hoang interval is normal. QT interval is normal. No Q waves. T waves are Normal. No ST changes noted. Clinical impression: NSR w/ Non-specific ST/T Changes and No evidence of ischemia. Interpreted by me. Reviewed by me. Administered Medications: 06:47 Drug: Norvasc PO 10 mg Route: PO; as6 10:11 Follow up: Response: No adverse reaction bp 06:47 Drug: fentaNYL (PF) IVP 50 mcg Route: IVP; Site: right antecubital; as6 10:11 Follow up: Response: No adverse reaction bp 07:03 Drug: Ondansetron IVP 4 mg Route: IVP; Site: right antecubital; as6 10:11 Follow up: Response: No adverse reaction bp 07:03 Drug: NS 0.9% IV 1000 ml Route: IV; Rate: 125 ml/hr; Site: right antecubital; as6 10:11 Follow up: IV Status: Completed infusion; IV Intake: 1000ml bp 07:03 Drug: NS 0.9% IV 500 ml Route: IV; Rate: bolus; Site: right antecubital; as6 10:11 Follow up: IV Status: Completed infusion; IV Intake: 500ml bp 08:00 Drug: Acetaminophen PO 1000 mg Route: PO; bp 10:12 Follow up: Response: No adverse reaction bp 08:01 Drug: NS 0.9% IV 500 ml Route: IV; Rate: bolus; Site: right antecubital; bp 10:11 Follow up: IV Status: Completed infusion; IV Intake: 500ml bp 08:01 Drug: foLIC Acid IVPB 1 mg Route: IVPB; Site: right antecubital; bp 10:11 Follow up: IV Status: Completed infusion; IV Intake: 100ml bp Disposition Summary: 02/15/23 09:22 Discharge Ordered Location: Home sd2 Problem: new sd2 Symptoms: have improved sd2 Condition: Stable sd2 Diagnosis - Cephalgia sd2 - Paresthesia of left leg and left arm sd2 Followup: sd2 - With: Private Physician - When: 2 - 3 days - Reason: Recheck today's complaints, Continuance of care, Re-evaluation by your physician Followup: sd2 - With: Eric Pinedo MD - When: 2 - 3 days - Reason: Recheck today's complaints, Continuance of care Discharge Instructions: - Discharge Summary Sheet sd2 - General Headache Without Cause sd2 - Paresthesia sd2 Forms: - Work release form iw - Medication Reconciliation Form sd2 - Thank You Letter sd2 - Antibiotic Education sd2 - Prescription Opioid Use sd2 Signatures: Dispatcher [employer] EDLucinda Esparza, RN Zak Dougherty MD MD cha Peltier, Brian RN RN Goran hWitley RN RN as6 Florinda Martinez MD MD sd2 Corrections: (The following items were deleted from the chart) 07:58 07:02 MR STROKE PROTOCOL+MRI.RAD.BRZ ordered. EDAL EDMS
--- NOTE | 2023-02-15 09:23 | ER ---
Nurse's Notes [facility] Name: Grayson Morales Age: 47 yrs Sex: Female : 1975 Arrival Date: 02/15/2023 Time: 05:56 Bed 7 Private MD: Diagnosis: Cephalgia;Paresthesia of left leg and left arm Presentation: 02/15 06:23 Chief complaint: Patient states: severe stabbing headache since 0230 reports tingling kl to left side of body pt ambulatory gait steady speech clear. Coronavirus screen: Vaccine status: Patient reports being unvaccinated. Ebola Screen: Patient negative for fever greater than or equal to 101.5 degrees Fahrenheit, and additional compatible Ebola Virus Disease symptoms. Initial Sepsis Screen: Does the patient meet any 2 criteria? No. Patient's initial sepsis screen is negative. Does the patient have a suspected source of infection? No. Patient's initial sepsis screen is negative. Risk Assessment: Do you want to hurt yourself or someone else? Patient reports no desire to harm self or others. Onset of symptoms was February 15, 2023 at 02:30. 06:23 Method Of Arrival: Ambulatory kl 06:23 Acuity: DEIRDRE 2 kl Triage Assessment: 06:25 General: Appears distressed, uncomfortable, Behavior is anxious. Pain: Complains of kl pain in head. 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 - Social history:: Smoking status: Patient reports the use of cigarette tobacco products, smokes one pack cigarettes per day. Screenin:50 [facility] ED Fall Risk Assessment (Adult) Score/Fall Risk Level 0 - 2 = Low Risk. Abuse as6 screen: Denies threats or abuse. Denies injuries from another. Nutritional screening: No deficits noted. Tuberculosis screening: No symptoms or risk factors identified. Assessment: 06:48 General: Appears uncomfortable, Behavior is calm, cooperative. Pain: Complains of pain as6 in generalized Quality of pain is described as aching. Neuro: Level of Consciousness is awake, alert, obeys commands, Oriented to person, place, time, situation, Reports headache stabbing numbness in left side of body. Cardiovascular: Denies chest pain, Capillary refill < 3 seconds Patient's skin is warm and dry. Respiratory: Airway is patent Trachea midline Respiratory effort is even, unlabored, Respiratory pattern is regular, symmetrical. GI: No deficits noted. No signs and/or symptoms were reported involving the gastrointestinal system. : No deficits noted. No signs and/or symptoms were reported regarding the genitourinary system. EENT: No deficits noted. No signs and/or symptoms were reported regarding the EENT system. Derm: Skin is intact, is healthy with good turgor. 07:00 Reassessment: patient with radiology during shift change. db 08:00 Reassessment: PT RETURNED FROM MRI. bp 10:09 Reassessment: PT DC HOME AMBULATORY. bp Vital Signs: 06:23 BP 185 / 105; Pulse 85; Resp 18; Temp 98.5(O); Pulse Ox 98% ; Weight 65.77 kg (M); kl Height 5 ft. 6 in. ; Pain 10/10; 07:03 BP 174 / 104; Pulse 68; Resp 13 S; Pulse Ox 100% on R/A; as6 08:00 BP 155 / 91; Pulse 68; Resp 16; Pulse Ox 100% ; bp 06:23 Body Mass Index 23.40 (65.77 kg, 167.64 cm) kl 06:23 Pain Scale: Adult kl [place] Coma Score: 07:05 Eye Response: spontaneous(4). Motor Response: obeys commands(6). Verbal Response: hoang oriented(5). Total: 15. ED Course: 06:01 Patient arrived in ED. ja2 06:05 Zak Irving MD is Attending Physician. hoang 06:22 Goran Cantor, THIAGO is Primary Nurse. as6 06:25 Triage completed. kl 06:47 XRAY Chest (1 view) In Process Unspecified. EDMS 06:48 Arm band placed on. as6 06:50 Placed in gown. Bed in low position. Call light in reach. Side rails up X 1. Client as6 placed on continuous cardiac and pulse oximetry monitoring. NIBP monitoring applied. Warm blanket given. 07:00 Inserted saline lock: 20 gauge in right antecubital area, using aseptic technique. bp Blood collected. 07:32 CT Head Angio In Process Unspecified. EDMS 07:32 CT Head Brain wo Cont In Process Unspecified. EDMS 07:32 CT Neck Angio In Process Unspecified. EDMS 07:58 Brain Wo Cont In Process Unspecified. EDMS 09:23 Eric Pinedo MD is Referral Physician. sd2 10:09 No provider procedures requiring assistance completed. IV discontinued, intact, bp bleeding controlled, No redness/swelling at site. Pressure dressing applied. Administered Medications: 06:47 Drug: Norvasc PO 10 mg Route: PO; as6 10:11 Follow up: Response: No adverse reaction bp 06:47 Drug: fentaNYL (PF) IVP 50 mcg Route: IVP; Site: right antecubital; as6 10:11 Follow up: Response: No adverse reaction bp 07:03 Drug: Ondansetron IVP 4 mg Route: IVP; Site: right antecubital; as6 10:11 Follow up: Response: No adverse reaction bp 07:03 Drug: NS 0.9% IV 1000 ml Route: IV; Rate: 125 ml/hr; Site: right antecubital; as6 10:11 Follow up: IV Status: Completed infusion; IV Intake: 1000ml bp 07:03 Drug: NS 0.9% IV 500 ml Route: IV; Rate: bolus; Site: right antecubital; as6 10:11 Follow up: IV Status: Completed infusion; IV Intake: 500ml bp 08:00 Drug: Acetaminophen PO 1000 mg Route: PO; bp 10:12 Follow up: Response: No adverse reaction bp 08:01 Drug: NS 0.9% IV 500 ml Route: IV; Rate: bolus; Site: right antecubital; bp 10:11 Follow up: IV Status: Completed infusion; IV Intake: 500ml bp 08:01 Drug: foLIC Acid IVPB 1 mg Route: IVPB; Site: right antecubital; bp 10:11 Follow up: IV Status: Completed infusion; IV Intake: 100ml bp Medication: 06:50 VIS not applicable for this client. as6 Intake: 10:11 IV: 500ml; Total: 500ml. bp 10:11 IV: 1000ml; Total: 1500ml. bp 10:11 IV: 500ml; Total: 2000ml. bp 10:11 IV: 100ml; Total: 2100ml. bp Outcome: 09:22 Discharge ordered by . sd2 10:09 Discharged to home ambulatory. bp 10:09 Condition: stable 10:09 Discharge instructions given to patient, Instructed on discharge instructions, follow up and referral plans. Demonstrated understanding of instructions, follow-up care. 10:12 Patient left the ED. bp Signatures: Dispatcher [employer] EDLucinda Esparza, RN RN Zak Cardenas MD MD cha Peltier, Brian, RN RN Kathie Keys Ashby, RN RN as6 Florinda Martinez MD MD ar2 Chiquita Duran RN RN db Corrections: (The following items were deleted from the chart) 06:57 06:48 Neuro: Level of Consciousness is awake, alert, obeys commands, Oriented to as6 person, place, time, situation, Reports numbness in left side of body as6
[2023-02-15 10:37] VITALS: TEMP 98.5
[2023-02-15 10:38] VITALS: O2SAT 100
[2023-02-15 10:39] VITALS: BP 155/91
--- NOTE | 2023-02-16 05:36 | EKG ---
Test Date: 2023-02-15 Test Time: 06:57:51 Front Tender: ADAM MEASUREMENT RESULTS: Intervals: Rate: 75 [place]: 154 QRSD: 94 QT: 386 QTc: 431 [place]: P: 80 [place]: 154 QRS: 98 T: 67 INTERPRETIVE STATEMENTS: Normal sinus rhythm Right atrial enlargement Borderline ECG No previous ECG available for comparison Electronically Signed On 02-16-23 05:33:15 CDT by Rodrigo Rivera
== END 2023-02-15 10:12 | disposition home or self-care (01) ==
LOC: ER 05:56
DX: R51.9 Headache, unspecified (principal); R20.2 Paresthesia of skin
CPT/HCPCS: 36415; 70450; 70496; 70498; 70551; 71045; 80048; 81001; 84484; 85025; 93005; 96361; 96365; 96366; 96375; 99284; J2405; J3010; J7030; J7040; Q9967

== ENCOUNTER 2023-06-05 10:04 | Emergency (ER) | payer SELFPAY ==
--- OUTSIDE RECORDS SUMMARY | 2023-06-05 10:13 | XMS REPORT | Continuity of Care Document ---
:1975 Author Organization [facility] t Address [address] [place] [address] Care Team Providers Name Role Phone Marii Leija Primary Care Physician [phone] Leonarda Malhotra RN Attending Clinician Unavailable Dottie [...] Univers abuse abuse 3-20 ity of 00:00: [place] [facility] Marijuana Marijuana Disease Active Uni vers abuse abuse 3-20 ity of 00:: [facility] Cocaine Cocaine Disease Active Univers abuse abuse 3-20 ity of 00:00: [place] [facility] Contracept Contracept Disease Active U nivers demario demario 3-20 [place]y of management [place] [facility] Nexplanon Nexplanon Disease Active Uni vers removal removal 11-05 ity of 00:00: [facility] Well woman Well woman Disease Active Overview : Univers exam exam 11-05 Formattin ity of 00:00: g of this 00 note Medical might be Branch different from the original. 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 Tobacco Tobacco Disease Active Univers use use 11-05 ity of disorder disorder 00:00: [place] 00 [facility] Irregular Irregular Disease Active Uni vers menstrual menstrual 11-05 ity of cycle cycle 00:00: [place] 00 [facility] [place] Allergies, Adverse Reactions, Alerts Allergy Allergy Status Severity Reaction(s) Onset Inactive Treating Comm ents Source Name Type Date Date Clinician Aspirin Propensi Active Shortness of U nivers ty to Breath 11-03 ity of adverse 00:00: [place] reaction 00 Medical s Branch ASPIRIN DRUG Active SOB Univers INGREDI 11-03 ity of 00:00: [place] 00 [facility] [place] Social History Social Habit Start Date Stop Date Quantity Comments Source History of tobacco Cigarette Smoker University of use [facility] Exposure to Yes University of SARS-CoV-2 (event) [facility] Cigarettes smoked 2021-06-17 2021-06-17 Univers ity of current (pack per 00:00:00 00:00:00 ) - Reported Branch Cigarette 2021-06-17 2021-06-17 University of pack-years 00:00:00 00:00:00 [facility] Tobacco use and 2021-06-17 2021-06-17 Never used Universit y of exposure 00:00:00 00:00:00 [facility] Alcohol intake 2021-06-17 2021-06-17 .86 /d University of 00:00:00 00:00:00 [facility] Tobacco Comment 2017-12-25 2017-12-25 10 cigarettes per Un iversity of 00:00:00 00:00:00 day [facility] Sex Ass[birth year] At [birth year] Universit y of 00:00:00 00:00:00 [facility] Smoking Status Start Date Stop Date Source Current every day smoker 2021-06-17 00:00:00 Uni versity of [facility] Medications Ordered Filled Start Stop Current Ordering Indication Dosage Frequency Signature Comments Components Source Medication Medication Date Date Medication? Clinician (SIG) Name Name sheridan Yes [id number] 250mg Take 1 Univers n 250 mg 9-10 tablet by ity of tablet 00:00: mouth [place] 00 daily. Medical Take 500 Branch mg day 1, then 250 mg days 2 to 5. bromphenira Yes [id number] 5mL Take 5 mL Univers mine-pseudo 9-10 by mouth 4 it y of ephedrine-D 00:00: (four[place] (BROMFED 00 times Medical DM) 2-30-10 daily as Bran ch mg/5 mL needed for syrup Congestion /Allergies . albuterol Yes [id number] 2{puff} Inhale 2 Univers 90 9-10 Puffs ity of mcg/actuati 00:00: every 6 Rom as on inhaler 00 (six) Medical hours as Branch needed for Wheezing or Shortness of Breath. cetirizine Yes [id number] 10mg Take 1 Univers 10 mg 9-10 tablet by ity of tablet 00:00: mouth [place] 00 daily. Medical Branch iwonaromyci Yes [id number] 250mg Take 1 Univers n 250 mg 9-10 tablet by ity of tablet 00:00: mouth [place] 00 daily. Medical Take 500 Branch mg day 1, then 250 mg days 2 to 5. bromphenira Yes [id number] 5mL Take 5 mL Univers mine-pseudo 9-10 by mouth 4 it y of ephedrine-D 00:00: (four[place] (BROMFED 00 times Medical DM) 2-30-10 daily as Bran ch mg/5 mL needed for syrup Congestion /Allergies . albuterol Yes [id number] 2{puff} Inhale 2 Univers 90 9-10 Puffs ity of mcg/actuati 00:00: every 6 Rom as on inhaler 00 (six) Medical hours as Branch needed for Wheezing or Shortness of Breath. cetirizine Yes [id number] 10mg Take 1 Univers 10 mg 9-10 tablet by ity of tablet 00:00: mouth [place] 00 daily. Medical Branch azithromyci Yes [id number] 250mg Take 1 Univers n 250 mg 9-10 tablet by ity of tablet 00:00: mouth [place] 00 daily. Medical Take 500 Branch mg day 1, then 250 mg days 2 to 5. bromphenira 0 Yes [id number] 5mL Take 5 mL Univers mine-pseudo 9-10 by mouth 4 it y of ephedrine-D 00:00: (four[place] (BROMFED 00 times Medical DM) 2-30-10 daily as Bran ch mg/5 mL needed for syrup Congestion /Allergies . albuterol Yes [id number] 2{puff} Inhale 2 Univers 90 9-10 Puffs ity of mcg/actuati 00:00: every 6 Rom as on inhaler 00 (six) Medical hours as Branch needed for Wheezing or Shortness of Breath. cetirizine Yes [id number] 10mg Take 1 Univers 10 mg 9-10 tablet by ity of tablet 00:00: mouth [place] 00 daily. Medical Branch azithromyci Yes [id number] 250mg Take 1 Univers n 250 mg 9-10 tablet by ity of tablet 00:00: mouth [place] 00 daily. Medical Take 500 Branch mg day 1, then 250 mg days 2 to 5. bromphenira Yes [id number] 5mL Take 5 mL Univers mine-pseudo 9-10 by mouth 4 it y of ephedrine-D 00:00: (four[place] (BROMFED 00 times Medical DM) 2-30-10 daily as Bran ch mg/5 mL needed for syrup Congestion /Allergies . albuterol Yes [id number] 2{puff} Inhale 2 Univers 90 9-10 Puffs ity of mcg/actuati 00:00: every 6 Rom as on inhaler 00 (six) Medical hours as Branch needed for Wheezing or Shortness of Breath. cetirizine 0 Yes [id number] 10mg Take 1 Univers 10 mg 9-10 tablet by ity of tablet 00:00: mouth [place] 00 daily. Medical Branch azithromyci 0 Yes [id number] 250mg Take 1 Univers n 250 mg 9-10 tablet by ity of tablet 00:00: mouth [place] 00 daily. Medical Take 500 Branch mg day 1, then 250 mg days 2 to 5. bromphenira Yes [id number] 5mL Take 5 mL Univers mine-pseudo 9-10 by mouth 4 it y of ephedrine-D 00:00: (four[place] (BROMFED 00 times Medical DM) 2-30-10 daily as Bran ch mg/5 mL needed for syrup Congestion /Allergies . albuterol Yes [id number] 2{puff} Inhale 2 Univers 90 9-10 Puffs ity of mcg/actuati 00:00: every 6 Rom as on inhaler 00 (six) Medical hours as Branch needed for Wheezing or Shortness of Breath. cetirizine Yes [id number] 10mg Take 1 Univers 10 mg 9-10 [...] of (PROVENTIL 10:20: [place] INHALE) 29 Medical [place] Immunizations Ordered Filled Immunization Date Status Comments Sourc e Immunization Name Name TD 2014-11-03 Completed University of 00:00:00 [facility] TD 2014-11-03 Completed University of 00:00:00 [facility] TDAP 2014-11-03 Completed University of 00:00:00 [facility] TDAP 2014-11-03 Com[facility] Com[facility] of 00:00:00 [facility] Vital Signs Vital Name Observation Time Observation Value Comments Source Systolic blood 2021-06-17 21:53:00 137 mm[Hg] Univer sity of pressure [facility] Diastolic blood 2021-06-17 21:53:00 87 mm[Hg] Unive rsity of pressure [facility] Heart rate 2021-06-17 21:53:00 100 /min [facility] Body temperature 2021-06-17 21:53:00 36.78 Fior [facility] Respiratory rate 2021-06-17 21:53:00 18 /min [facility] Body height 2021-06-17 21:53:00 162.6 cm [facility] Oxygen saturation in 2021-06-17 21:53:00 98 /min [facility] Arterial blood by [facility] Pulse oximetry Branch Procedures This patient has no known procedures. Encounters Start End Encounter Admission Attending Care Care Encounter Source Date/Time Date/Time Type Type Clinicians Facility Department ID 2021-06-20 2021-06-20 Letter SIMI Malhotra [id number] Univers 00:00:00 00:00:00 (Out) Leonarda NUÑEZ [id number] it y of [facility] [id number] Rom as [id number] [address] 2021-06-20 2021-06-20 Telephone SIMI Sinclair [id number] Univers 00:00:00 00:00:00 Darron NUÑEZ [id number] ity of [facility] [id number] Rom as [id number] [address] 2021-06-17 2021-06-17 Urgent Briseida Ruiz [facility] [id number] Univers 14:53:50 17:11:21 [facility] [id number] ity [facility] [id number] Rom as [place]?Blea [id number] [place] [facility] [address] Medical Office Building 2021-06-17 2021-06-17 Outpatient R [facility] [id number] Univers 14:00:00 14:00:[address] [facility] Results This patient has no known results.
[2023-06-05 10:49] LABS: Absolute Lymphocytes (CBC) 1.9 K/uL (0.7-4.9); Hematocrit 45.9 % (36.0-45.0); Lymphocytes % 15.6 % (15.3-44.8); MPV 9.1 fL (7.6-11.3); Platelets 250 thou/uL (152-406); RBC Red Blood Cell Count 5.04 M/uL (3.86-4.86)
[2023-06-05 10:53] LABS: Protime INR 0.91
[2023-06-05 11:20] LABS: Albumin 4.1 g/dL (3.4-5.0); Bilirubin Direct 0.2 mg/dL (0-0.2); Bilirubin Indirect, Calculated 0.4 mg/dL (0.2-0.8); Bilirubin Total 0.6 mg/dL (0.2-1.0); Magnesium 2.2 mg/dL (1.6-2.4); Potassium 3.9 mEq/L (3.5-5.1); Protein, Total 8.8 g/dL (6.4-8.2); Troponin High Sensitivity 22.1 pg/mL (<58.9)
--- NOTE | 2023-06-05 11:48 | EDPHYS ---
Physician Documentation [facility] Name: Grayson Morales Age: 47 yrs Sex: Female : 1975 Arrival Date: 06/05/2023 Time: 10:04 Bed 2 Private MD: ED Physician Susanna Godinez HPI: 06/05 10:25 This 47 yrs old Black Female presents to ER via Ambulatory with complaints of Chest sp3 Pain, Numbness - RIGHT SIDE, Headache. 10:25 47-year-old female with history of asthma presents to the ED with chief complaint sp3 right-sided chest pain into her right arm and right-sided headache. Patient states the symptoms have been going on for months now and recurred over the last few days. She also reports significantly increased levels of stress at home and at work. She was seen here in February 2023 for similar symptoms at which point she had a negative work-up including laboratory values, CT scan of the head, CT angiogram of the head and neck, and MRI of the brain which were all normal. Today she states her symptoms are similar in nature and reports no other changes. She denies trauma, left-sided symptoms, left-sided chest pain, difficulty breathing, back pain, abdominal pain, nausea, vomiting, diarrhea, rash, known sick contacts, fever, URI symptoms, travel history, or any other signs or symptoms on ROS at this time.. 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 - Social history:: Smoking status: Patient reports the use of cigarette tobacco products. ROS: 10:26 Constitutional: Negative for fever, chills, and weight loss, Eyes: Negative for injury, sp3 pain, redness, and discharge, ENT: Negative for injury, pain, and discharge, Neck: Negative for injury, pain, and swelling, Respiratory: Negative for shortness of breath, cough, wheezing, and pleuritic chest pain, Abdomen/GI: Negative for abdominal pain, nausea, vomiting, diarrhea, and constipation, Back: Negative for injury and pain, MS/Extremity: Negative for injury and deformity, Skin: Negative for injury, rash, and discoloration, Allergy/Immunology: Negative for hives, rash, and allergies, Endocrine: Negative for neck swelling, polydipsia, polyuria, polyphagia, and marked weight changes, Hematologic/Lymphatic: Negative for swollen nodes, abnormal bleeding, and unusual bruising. 10:26 All other systems are negative. Exam: 10:26 Constitutional: This is a well developed, well nourished patient who is awake, alert, sp3 and in no acute distress. Head/Face: Normocephalic, atraumatic. Eyes: Pupils equal round and reactive to light, extra-ocular motions intact. Lids and lashes normal. Conjunctiva and sclera are non-icteric and not injected. Cornea within normal limits. Periorbital areas with no swelling, redness, or edema. ENT: Nares patent. No nasal discharge, no septal abnormalities noted. External auditory canals are clear. Oropharynx with no redness, swelling, or masses, exudates, or evidence of obstruction, uvula midline. Mucous membranes moist. Neck: Trachea midline, no thyromegaly or masses palpated, and no cervical lymphadenopathy. Supple, full range of motion without nuchal rigidity, or vertebral point tenderness. No Meningismus. Chest/axilla: Normal chest wall appearance and motion. Nontender with no deformity. No lesions are appreciated. Cardiovascular: Regular rate and rhythm with a normal S1 and S2. No gallops, murmurs, or rubs. Normal PMI, no JVD. No pulse deficits. Respiratory: Lungs have equal breath sounds bilaterally, clear to auscultation and percussion. No rales, rhonchi or wheezes noted. No increased work of breathing, no retractions or nasal flaring. Abdomen/GI: Soft, non-tender, with normal bowel sounds. No distension or tympany. No guarding or rebound. No evidence of tenderness throughout. Back: No spinal tenderness. No costovertebral tenderness. Full range of motion. Skin: Warm, dry with normal turgor. Normal color with no rashes, no lesions, and no evidence of cellulitis. MS/ Extremity: Pulses equal, no cyanosis. Neurovascular intact. Full, normal range of motion. Neuro: Awake and alert, GCS 15, oriented to person, place, time, and situation. Cranial nerves II-XII grossly intact. Motor strength 5/5 in all extremities. Sensory grossly intact. Cerebellar exam normal. Normal gait. Psych: Awake, alert, with orientation to person, place and time. Behavior, mood, and affect are within normal limits. 10:26 ECG was reviewed by the Attending Physician. EKG demonstrates normal sinus rhythm at 77 bpm with normal intervals, normal QRS, slightly rightward axis, normal ST/T-segment's without evidence of acute ischemia. Vital Signs: 10:19 Weight 68.04 kg; Height 5 ft. 2 in. ; iw 10:51 BP 162 / 92; Pulse 74; Resp 16; Pulse Ox 100% on R/A; ap3 11:38 BP 113 / 68; Pulse 74; Pulse Ox 99% on R/A; ap3 10:19 Body Mass Index 27.44 (68.04 kg, 157.48 cm) iw MDM: 10:15 Patient medically screened. sp3 10:27 Data reviewed: vital signs, nurses notes, old medical records, lab test result(s), EKG, sp3 radiologic studies. ED course: 47-year-old female with recurrent right-sided chest pain and headache. I do not believe patient has a primary neurological presentation or pathology at this time given her past work-up. Although acute coronary syndrome is on the list, it is less likely as well given clinical presentation and current EKG. We will assess with chest x-ray and further laboratory values including troponin and likely discharge patient home with PCP follow-up for mental health check as well as serial blood pressure checks and possible medication. I do not believe patient has any pulmonary active pathology, aortic dissection or aneurysm, GI pathology, or any other critical process at this current time.. 11:46 ED course: Work-up reviewed including laboratory values and chest x-ray. There is no sp3 widened mediastinum and I am not suspicious for vascular disease. Troponin is negative. At this time I will discharge patient home on an oral NSAID with possibilities including MSK versus cervical radiculopathy. Patient to follow-up with orthopedics and will get MRI outpatient for definitive diagnosis. We will safely discharge her home at this time.. 06/05 10:16 Order name: Basic Metabolic Panel; Complete Time: : sp3 06/05 10:16 Order name: CBC with Diff; Complete Time: 11: sp3 06/05 10:16 Order name: LFT's; Complete Time: 11:22 sp3 06/05 10:16 Order name: Magnesium; Complete Time: 11:22 sp3 06/05 10:16 Order name: NT PRO-BNP; Complete Time: 11:22 sp3 06/05 10:16 Order name: PT-INR; Complete Time: 11:22 sp3 06/05 10:16 Order name: Troponin HS; Complete Time: 11:22 sp3 06/05 10:16 Order name: XRAY Chest (1 view); Complete Time: 11:57 sp3 06/05 10:16 Order name: EKG; Complete Time: 10:16 sp3 06/05 10:16 Order name: Cardiac monitoring; Complete Time: 10:23 sp3 06/05 10:16 Order name: EKG - Nurse/Tech; Complete Time: 10:19 sp3 06/05 10:16 Order name: IV Saline Lock; Complete Time: 10:44 sp3 06/05 10:16 Order name: Labs collected and sent; Complete Time: 10:44 sp3 06/05 10:16 Order name: O2 Per Protocol; Complete Time: 10: sp3 06/05 10:16 Order name: O2 Sat Monitoring; Complete Time: 10:22 sp3 Administered Medications: No medications were administered Disposition Summary: 06/05/23 11:47 Discharge Ordered Location: Home sp3 Condition: Stable sp3 Diagnosis - Musculoskeletal pain right arm, possible cervical radiculopathy sp3 Followup: sp3 - With: Private Physician - When: Upon discharge from the Emergency Department - Reason: Continuance of care Discharge Instructions: - Discharge Summary Sheet sp3 - Cervical Radiculopathy sp3 Forms: - Work release form ap3 - Medication Reconciliation Form sp3 - Thank You Letter sp3 - Antibiotic Education sp3 - Prescription Opioid Use sp3 - Patient Portal Instructions sp3 - Leadership Thank You Letter sp3 Prescriptions: - Diclofenac Sodium 75 mg Oral Tablet Sustained Release - take 1 tablet by ORAL route 2 times per day; 30 tablet; Refills: 0, Product sp3 Selection Permitted Signatures: Dispatcher MedHoAzeb Aparicio RN RN iw Patel, Setul, MD MD sp3
--- NOTE | 2023-06-05 11:48 | ER ---
Nurse's Notes [facility] Name: Grayson Morales Age: 47 yrs Sex: Female : 1975 Arrival Date: 06/05/2023 Time: 10:04 Bed 2 Private MD: Diagnosis: Musculoskeletal pain right arm, possible cervical radiculopathy Presentation: 06/05 10:19 Chief complaint: Patient states: she gets this weird sensation all over her whole body iw and my right arm goes numb , it's a burning sensation that makes my right hand got weak, she also has a metallic taste in her mouth , symptoms started a month ago , intermittent, lasts 10-15 minutes and happens about 4 times a day. Coronavirus screen: At this time, the client does not indicate any symptoms associated with coronavirus-19. Ebola Screen: Patient negative for fever greater than or equal to 101.5 degrees Fahrenheit, and additional compatible Ebola Virus Disease symptoms Patient denies exposure to infectious person. Patient denies travel to an Ebola-affected area in the 21 days before illness onset. No symptoms or risks identified at this time. Initial Sepsis Screen: Does the patient meet any 2 criteria? No. Patient's initial sepsis screen is negative. Does the patient have a suspected source of infection? No. Patient's initial sepsis screen is negative. Risk Assessment: Do you want to hurt yourself or someone else? Patient reports no desire to harm self or others. Onset of symptoms was April 2023. 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 - Social history:: Smoking status: Patient reports the use of cigarette tobacco products. Screenin:15 [facility] ED Fall Risk Assessment (Adult) Score/Fall Risk Level 0 - 2 = Low Risk. Abuse eh3 screen: Denies threats or abuse. Denies injuries from another. Nutritional screening: No deficits noted. Tuberculosis screening: No symptoms or risk factors identified. Assessment: 10:15 General: Appears in no apparent distress. uncomfortable, Behavior is calm, cooperative, eh3 appropriate for age. Pain: Complains of pain in chest Pain radiates to right arm Pain began 1 month ago Is intermittent. Neuro: Level of Consciousness is awake, alert, obeys commands, Oriented to person, place, time, situation. Cardiovascular: Capillary refill < 3 seconds Patient's skin is warm and dry. Respiratory: Airway is patent Respiratory effort is even, unlabored, Respiratory pattern is regular, symmetrical. GI: Abdomen is round non-distended. Derm: Skin is healthy with good turgor, Skin is pink, warm \T\ dry. Musculoskeletal: Reports numbness in right arm. Vital Signs: 10:19 Weight 68.04 kg; Height 5 ft. 2 in. ; iw 10:51 BP 162 / 92; Pulse 74; Resp 16; Pulse Ox 100% on R/A; ap3 11:38 BP 113 / 68; Pulse 74; Pulse Ox 99% on R/A; ap3 10:19 Body Mass Index 27.44 (68.04 kg, 157.48 cm) iw ED Course: 10:06 Patient arrived in ED. mg5 10:07 Susanna Godinez MD is Attending Physician. sp3 10:15 Patient has correct armband on for positive identification. Bed in low position. Call eh3 light in reach. Side rails up X2. Provided Education on: Use of call rivas. Client placed on continuous cardiac and pulse oximetry monitoring. NIBP monitoring applied. 10:15 Patient maintains SpO2 saturation greater than 95% on room air. eh3 10:21 Triage completed. iw 10:22 Arm band placed on. iw 10:40 Inserted saline lock: 20 gauge in left antecubital area, using aseptic technique. Blood eh3 collected. 11:07 Shasta Wooten, RN is Primary Nurse. ap3 11:38 XRAY Chest (1 view) In Process Unspecified. EDMS 11:58 No provider procedures requiring assistance completed. IV discontinued, intact, ap3 bleeding controlled, No redness/swelling at site. Pressure dressing applied. Administered Medications: No medications were administered Medication: 11:58 VIS not applicable for this client. ap3 Outcome: 11:47 Discharge ordered by . sp3 11:58 Discharged to home ambulatory. ap3 11:58 Condition: good 11:58 Discharge instructions given to patient, Instructed on discharge instructions, follow up and referral plans. medication usage, Demonstrated understanding of instructions, follow-up care, medications, Prescriptions given X 1. 11:58 Patient left the ED. ap3 Signatures: Dispatcher [employer] EDAzeb Saleh, RN Shasta Ahmadi RN RN ap3 Susanna Godinez MD MD sp3 Karen Herring RN RN 3 Ivon Null 5
--- NOTE | 2023-06-05 11:50 | RAD REPORT ---
EXAM DESCRIPTION: Joie Single View06/05/2023 11:36 am CLINICAL HISTORY: Chest pain COMPARISON: February 2023 FINDINGS: The lungs appear clear of acute infiltrate. The heart is normal size IMPRESSION: No acute abnormalities displayed
[2023-06-05 12:22] VITALS: BP 113/68; O2SAT 99
--- NOTE | 2023-06-05 16:26 | EKG ---
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
== END 2023-06-05 11:58 | disposition home or self-care (01) ==
LOC: ER 10:04
DX: M79.18 Myalgia, other site (principal)
CPT/HCPCS: 36415; 71045; 80048; 80076; 83735; 83880; 84484; 85025; 85610; 93005

== ENCOUNTER 2023-09-06 09:40 | Emergency (ER) | payer SELFPAY ==
--- OUTSIDE RECORDS SUMMARY | 2023-09-06 09:43 | XMS REPORT | Continuity of Care Document ---
:1975 Author Organization [facility] t Address [address] [facility] [address] [place] [address] Care Team Providers Name Role Phone Marii Leija Primary Care Physician Leonarda Malhotra RN Attending Clinician Unavailable Darron Sinclair RN Attending Clinician Unavailable Briseida Ruiz PA-C Attending Clinician Mary Jo Kaplan Attending Clinician Payers Payer Name Policy Type Policy Number Effective Date Expiration Date S ource Problems Condition Condition Condition Status Onset Resolution Last Treating Co mments Source Name Details Category Date Date Treatment Clinician Date Alcohol Alcohol Disease Active Univers abuse abuse 3-20 ity of 00:00: [address] Marijuana Marijuana Disease Active Uni vers abuse abuse 3-20 ity of 00:: [address] Cocaine Cocaine Disease Active Univers abuse abuse 3-20 ity of 00:00: [address] Contracept Contracept Disease Active U nivers demario demario 3-20 [place] [facility] Branch Nexplanon Nexplanon Disease Active Uni vers removal removal 11-05 ity of 00:00: [place] [facility] Well woman Well woman Disease Active Overview : Univers exam exam 11-05 Formattin ity of 00:00: g of this note Medical might be Branch different from the original. 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 Tobacco Tobacco Disease Active Univers use use 11-05 ity of disorder disorder 00:00: [place] 00 [facility] Branch Irregular Irregular Disease Active Uni vers menstrual menstrual 11-05 ity of cycle cycle 00:00: [place] 00 [facility] Allergies, Adverse Reactions, Alerts Allergy Allergy Status Severity Reaction(s) Onset Inactive Treating Comm ents Source Name Type Date Date Clinician Aspirin Propensi Active Shortness of U nivers ty to Breath 11-03 ity of adverse 00:00: [place] reaction 00 Medical s Branch ASPIRIN DRUG Active SOB Univers INGREDI 11-03 ity of 00:00: [place] 00 [facility] Social History Social Habit Start Date Stop Date Quantity Comments Source History of tobacco Cigarette Smoker University of [facility] Exposure to Yes University of SARS-CoV-2 (event) [facility] Alcohol intake 2021-06-17 2021-06-17 .86 /d University of 00:00:00 00:00:00 [facility] Cigarettes smoked 2021-06-17 2021-06-17 Univers ity of current (pack per 00:00:00 00:00:00 ) - Reported Branch Cigarette 2021-06-17 2021-06-17 University of pack-years 00:00:00 00:00:00 [facility] Tobacco use and 2021-06-17 2021-06-17 Never used Universit y of exposure 00:00:00 00:00:00 [facility] Tobacco Comment 2017-12-25 2017-12-25 10 cigarettes per Un iversity of 00:00:00 00:00:00 day [facility] Sex Ass[birth year] At [birth year] Universit y of 00:00:00 00:00:00 [facility] Smoking Status Start Date Stop Date Source Current every day smoker 2021-06-17 00:00:00 Uni versity of [facility] Medications Ordered Filled Start Stop Current Ordering Indication Dosage Frequency Signature Comments Components Source Medication Medication Date Date Medication? Clinician (SIG) Name Name sheridan Yes [id number] 250mg Take 1 Univers n 250 mg 9-10 tablet by ity of tablet 00:00: mouth [place] 00 daily. Medical Take 500 Branch mg day 1, then 250 mg days 2 to 5. bromphenira Yes [id number] 5mL Take 5 mL Univers mine-pseudo 9-10 by mouth 4 it y of ephedrine-D 00:00: (four[place] (BROMFED 00 times Medical DM) 2-30-10 daily as Bran ch mg/5 mL needed for syrup Congestion /Allergies . albuterol Yes [id number] 2{puff} Inhale 2 Univers 90 9-10 Puffs ity of mcg/actuati 00:00: every 6 Rom as on inhaler 00 (six) Medical hours as Branch needed for Wheezing or Shortness of Breath. cetirizine Yes [id number] 10mg Take 1 Univers 10 mg 9-10 tablet by ity of tablet 00:00: mouth [place] 00 daily. Medical Branch palomai Yes [id number] 250mg Take 1 Univers n 250 mg 9-10 tablet by ity of tablet 00:00: mouth [place] 00 daily. Medical Take 500 Branch mg day 1, then 250 mg days 2 to 5. bromphenira Yes [id number] 5mL Take 5 mL Univers mine-pseudo 9-10 by mouth 4 it y of ephedrine-D 00:00: (four[place] (BROMFED 00 times Medical DM) 2-30-10 daily as Bran ch mg/5 mL needed for syrup Congestion /Allergies . albuterol Yes [id number] 2{puff} Inhale 2 Univers 90 9-10 Puffs ity of mcg/actuati 00:00: every 6 Rom as on inhaler 00 (six) Medical hours as Branch needed for Wheezing or Shortness of Breath. cetirizine Yes [id number] 10mg Take 1 Univers 10 mg 9-10 tablet by ity of tablet 00:00: mouth [place] 00 daily. Medical Branch azithromyci Yes [id number] 250mg Take 1 Univers n 250 mg 9-10 tablet by ity of tablet 00:00: mouth [place] 00 daily. Medical Take 500 Branch mg day 1, then 250 mg days 2 to 5. bromphenira 0 Yes [id number] 5mL Take 5 mL Univers mine-pseudo 9-10 by mouth 4 it y of ephedrine-D 00:00: (four[place] (BROMFED 00 times Medical DM) 2-30-10 daily as Bran ch mg/5 mL needed for syrup Congestion /Allergies . albuterol 0 Yes [id number] 2{puff} Inhale 2 Univers 90 9-10 Puffs ity of mcg/actuati 00:00: every 6 Rom as on inhaler 00 (six) Medical hours as Branch needed for Wheezing or Shortness of Breath. cetirizine 0 Yes [id number] 10mg Take 1 Univers 10 mg 9-10 tablet by ity of tablet 00:00: mouth [place] 00 daily. Medical Branch azithromyci 0 Yes [id number] 250mg Take 1 Univers n 250 mg 9-10 tablet by ity of tablet 00:00: mouth [place] 00 daily. Medical Take 500 Branch mg day 1, then 250 mg days 2 to 5. bromphenira 0 Yes [id number] 5mL Take 5 mL Univers mine-pseudo 9-10 by mouth 4 it y of ephedrine-D 00:00: (four[place] (BROMFED 00 times Medical DM) 2-30-10 daily as Bran ch mg/5 mL needed for syrup Congestion /Allergies . albuterol 0 Yes [id number] 2{puff} Inhale 2 Univers 90 9-10 Puffs ity of mcg/actuati 00:00: every 6 Rom as on inhaler 00 (six) Medical hours as Branch needed for Wheezing or Shortness of Breath. cetirizine 2020-0 Yes [id number] 10mg Take 1 Univers 10 mg 9-10 tablet by ity of tablet 00:00: mouth [place] 00 daily. Medical Branch azithromyci 2020-0 Yes [id number] 250mg Take 1 Univers n 250 mg 9-10 tablet by ity of tablet 00:00: mouth [place] 00 daily. Medical Take 500 Branch mg day 1, then 250 mg days 2 to 5. bromphenira Yes [id number] 5mL Take 5 mL Univers mine-pseudo 9-10 by mouth 4 it y of ephedrine-D 00:00: (four[place] (BROMFED 00 times Medical DM) 2-30-10 daily as Bran ch mg/5 mL needed for syrup Congestion /Allergies . albuterol Yes [id number] 2{puff} Inhale 2 Univers 90 9-10 Puffs ity of mcg/actuati 00:00: every 6 Rom as on inhaler 00 (six) Medical hours as Branch needed for Wheezing or Shortness of Breath. cetirizine Yes [id number] 10mg Take 1 Univers 10 mg 9-10 [...] ity of (PROVENTIL 10:20: [place] INHALE) [address] [facility] Vital Signs Vital Name Observation Time Observation Value Comments Source Systolic blood 2021-06-17 21:53:00 137 mm[Hg] Univer sity of pressure [facility] Diastolic blood 2021-06-17 21:53:00 87 mm[Hg] Unive rsity of pressure [facility] Heart rate 2021-06-17 21:53:00 100 /min [facility] Body temperature 2021-06-17 21:53:00 36.78 Fior [facility] Respiratory rate 2021-06-17 21:53:00 18 /min [facility] Body height 2021-06-17 21:53:00 162.6 cm [facility] Oxygen saturation in 2021-06-17 21:53:00 98 /min [facility] Arterial blood by [place] [employer] [facility] Pulse oximetry Branch Procedures This patient has no known procedures. Encounters Start End Encounter Admission Attending Care Care Encounter Source Date/Time Date/Time Type Type Clinicians Facility Department ID 2023-08-31 2023-08-31 Outpatient [facility] [id number] Shahab 13:47:01 13:47:01 [id number] [place] 2023-08-07 2023-08-07 Outpatient [facility] [id number] Shahab 16:33:12 16:33:12 [id number] [facility] [place] 2023-07-03 2023-07-03 Outpatient [facility] [id number] Shahab 11:10:36 11:10:36 [id number] [facility] [place] 2023-06-11 2023-06-11 Outpatient [facility] [id number] Shahab 11:28:09 11:28:09 [id number] [facility] [place] 2023-06-08 2023-06-08 Outpatient [facility] [id number] Shahab 10:14:09 10:14:09 [id number] [place] 2021-06-20 2021-06-20 Letter SIMI Malhotra [id number] Univers 00:00:00 00:00:00 (Out) Leonarda NUÑEZ [id number] it y of [facility] [id number] Rom as [id number] [address] 2021-06-20 2021-06-20 Telephone SIMI Sinclair [id number] Univers 00:00:00 00:00:00 Darron NUÑEZ [id number] ity of [facility] [id number] Rom as [id number] [address] 2021-06-17 2021-06-17 Urgent Kelly Ruizcy [facility] [id number] Univers 14:53:50 17:11:21 [facility] [id number] ity [facility] [id number] Rom as Chap[place]?Blea [id number] [facility] [address] [place] [address] Medical Office Building 2021-06-17 2021-06-17 Outpatient R [facility] [id number] Univers 14:00:00 14:00:00 ity of [facility] Results This patient has no known results.
[2023-09-06 10:16] LABS: Absolute Lymphocytes (CBC) 1.3 K/uL (0.7-4.9); Hematocrit 37.4 % (36.0-45.0); Lymphocytes % 10.4 % (15.3-44.8); MCV 90.5 fL (80-100); MPV 8.6 fL (7.6-11.3); Platelets 311 thou/uL (152-406); RBC Red Blood Cell Count 4.13 M/uL (3.86-4.86)
[2023-09-06 10:18] LABS: Protime INR 1.02
[2023-09-06 10:32] LABS: Albumin 3.6 g/dL (3.4-5.0); Bilirubin Direct 0.2 mg/dL (0-0.2); Bilirubin Indirect, Calculated 0.2 mg/dL (0.2-0.8); Bilirubin Total 0.4 mg/dL (0.2-1.0); Magnesium 1.9 mg/dL (1.6-2.4); Potassium 3.5 mEq/L (3.5-5.1); Protein, Total 7.4 g/dL (6.4-8.2); Troponin High Sensitivity 16.5 pg/mL (<58.9)
--- NOTE | 2023-09-06 10:40 | RAD REPORT ---
EXAM DESCRIPTION: RADChest Single View09/06/2023 10:15 am CLINICAL HISTORY: CHEST PAIN COMPARISON: Chest Single View dated 06/05/2023; Chest Single View dated 02/15/2023; Chest Single View dated 05/28/2019 TECHNIQUE: Portable AP view of the chest. FINDINGS: The lungs are clear. No pneumothorax or effusion. The cardiomediastinal contours are unre markable. IMPRESSION: No acute cardiopulmonary process.
--- NOTE | 2023-09-06 12:57 | EDPHYS ---
Physician Documentation [facility] Name: Grayson Morales Age: 47 yrs Sex: Female : 1975 Arrival Date: 09/06/2023 Time: 09:40 Bed 17 Private MD: ED Physician Brandon Valente HPI: 09/06 09:53 This 47 yrs old Black Female presents to ER via Unassigned with complaints of chest sb4 pain. 09:53 The patient or guardian reports chest pain that is located primarily in the chest sb4 diffusely. Onset: this morning. The pain radiates to both arms. Associated signs and symptoms: Pertinent positives: vomiting, Pertinent negatives: diaphoresis. Severity of pain: in the emergency department the pain has improved. EMS care prior to arrival includes: supplemental oxygen. The patient has experienced a previous episode. 11:27 patient reports chest pain that began this morning while she was driving to work. sb4 states she feels tingling in her bilateral arms and legs as well. 1 episodes of vomiting prior to EMS arrival. endorses cocaine use last night. Historical: - Allergies: 09:53 Aspirin; ld1 - Home Meds: 09:53 None [Active]; ld1 - PMHx: 09:53 Asthma; ld1 - PSHx: 09:53 None; ld1 - Immunization history:: Adult Immunizations up to date. - Social history:: Smoking status: Patient reports the use of cigarette tobacco products, smokes one pack cigarettes per day. Patient uses alcohol, on a daily basis. street drugs, cocaine. ROS: 10:01 Constitutional: Negative for fever, chills, and weight loss, sb4 10:01 Cardiovascular: Positive for chest pain, 10:01 All other systems are negative, Exam: 10:01 Constitutional: This is a well developed, well nourished patient who is awake, alert, sb4 and in no acute distress. Head/Face: Normocephalic, atraumatic. Eyes: Extra-ocular motions intact. Periorbital areas with no swelling, redness, or edema. ENT: Mucous membranes moist. Cardiovascular: Regular rate and rhythm with a normal S1 and S2. Respiratory: Lungs have equal breath sounds bilaterally, clear to auscultation and percussion. No rales, rhonchi or wheezes noted. No increased work of breathing, no retractions or nasal flaring. Abdomen/GI: Soft, non-tender, no distension. Skin: Warm, dry with normal turgor. Normal color with no rashes, no lesions, and no evidence of cellulitis. MS/ Extremity: Pulses equal, no cyanosis. Neurovascular intact. Full, normal range of motion. Neuro: Awake and alert, GCS 15, oriented to person, place, time, and situation. Motor strength 5/5 in all extremities. Sensory grossly intact. Vital Signs: 09:52 BP 125 / 69; Pulse 79; Resp 18; Temp 98.1(TE); Pulse Ox 100% on R/A; Weight 64.86 kg; ld1 Height 5 ft. 7 in. ; Pain 6/10; 13:07 BP 124 / 73; Pulse 71; Resp 18; Pulse Ox 100% on R/A; Pain 0/10; ld1 09:52 Body Mass Index 22.40 (64.86 kg, 170.18 cm) ld1 09:52 Pain Scale: Adult ld1 13:07 Pain Scale: Adult ld1 MDM: 09:41 Patient medically screened. sb4 10:01 Differential diagnosis: prinzmental angina, stable angina, unstable angina, asthma, sb4 copd, pneumonia, anxiety. 10:51 The patient was not given aspirin in the Emergency Department. Not indicated due to sb4 patient's past medical history. Scoring Tools HEART Score: History: ECG: Age: Risk Factors: > or = 3 Risk factors for atherosclerotic disease (2), Troponin: Total Score = 3. 10:53 ECG:. Data reviewed: vital signs, nurses notes, EMS record, lab test result(s), EKG, sb4 radiologic studies, and as a result, I will discharge patient. Consideration of Admission/Observation Escalation of care including admission/observation considered. Care significantly affected by the following chronic conditions: Hypertension. 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 10:53 Special discussion: Based on the patient's history, exam, and Dx evaluation, there is sb4 no indication for emergent intervention or inpatient Tx. It is understood by the patient/guardian that if the Sx's persist or worsen they need to return immediately for re-evaluation. 10:55 Awaiting: labs results, repeat troponin. sb4 09/06 09:41 Order name: Basic Metabolic Panel; Complete Time: 10:37 sb4 09/06 09:41 Order name: CBC with Diff; Complete Time: 10:37 sb4 09/06 09:41 Order name: LFT's; Complete Time: 10:37 sb4 09/06 09:41 Order name: Magnesium; Complete Time: 10:37 sb4 09/06 09:41 Order name: NT PRO-BNP; Complete Time: 10:37 sb4 09/06 09:41 Order name: PT-INR; Complete Time: 10:37 sb4 09/06 09:41 Order name: Troponin HS; Complete Time: 10:37 sb4 09/06 11:52 Order name: Troponin High Sensitivity; Complete Time: 12:33 sb4 09/06 09:41 Order name: XRAY Chest (1 view); Complete Time: 10:41 sb4 09/06 09:41 Order name: EKG; Complete Time: 09:42 sb4 09/06 09:41 Order name: Cardiac monitoring; Complete Time: 12:58 sb4 09/06 09:41 Order name: EKG - Nurse/Tech; Complete Time: 10:08 sb4 09/06 09:41 Order name: IV Saline Lock; Complete Time: 10:08 sb4 09/06 09:41 Order name: Labs collected and sent; Complete Time: 10:08 sb4 09/06 09:41 Order name: O2 Per Protocol; Complete Time: 09:52 sb4 09/06 09:41 Order name: O2 Sat Monitoring; Complete Time: 09:52 sb4 09/06 10:51 Order name: Misc. Order: repeat trop at 12; Complete Time: 12:58 sb4 EC:03 Rate is 81 beats/min. Rhythm is regular, Normal Sinus Rhythm. Right axis deviation sb4 noted. [place] interval is normal at 176 msec. QRS interval is normal at 92 msec. QT interval is normal at [address] changes noted. Clinical impression: No evidence of ischemia. Interpreted by me. Reviewed by me. Administered Medications: No medications were administered Disposition: 15:24 Co-signature as Attending Physician, Brandon Valente MD I reviewed the patient's care rn provided by the Advanced Practice Provider and agree with the diagnosis and treatment plan. 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 sb4 Followup: sb4 - With: Emergency Department - When: As needed - Reason: Trouble breathing, Worsening of condition Discharge Instructions: - Discharge Summary Sheet ld1 - and Returning to Work ld1 Forms: - Work release form ld1 - Family Work Release ld1 Signatures: Dispatcher [employer] EDMS Brandon Valente MD MD rn Sims, Lauren, RN RN ld1 Daisy Velasco PA-C PA-C sb4 Corrections: (The following items were deleted from the chart) 13:03 12:56 Observation sb4 sb4 13:03 12:56 Miller, Stantonammad sb4 sb4 13:03 12:56 Telemetry/MedSurg (observation) sb4 sb4 13:03 12:56 Fair sb4 sb4 13:03 12:56 new sb4 sb4 13:03 12:56 are unchanged sb4 sb4 13:03 12:56 Standard sb4 sb4 13:03 12:56 sb4 sb4 13:03 12:56 Chest pain, unspecified sb4 sb4 13:03 12:56 Cocaine abuse sb4 sb4
--- NOTE | 2023-09-06 12:57 | ER ---
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 ld1 C/O pain tingling down right arm and midback. Cocaine use last night. Coronavirus screen: At this time, the client does not indicate any symptoms associated with coronavirus-19. Ebola Screen: No symptoms or risks identified at this time. Initial Sepsis Screen: Does the patient meet any 2 criteria? No. Patient's initial sepsis screen is negative. Does the patient have a suspected source of infection? No. Patient's initial sepsis screen is negative. Risk Assessment: Do you want to hurt yourself or someone else? Patient reports no desire to harm self or others. Onset of symptoms was September 06, 2023. 09:52 Method Of Arrival: EMS: [facility] ld1 09:52 Acuity: DEIRDRE 3 ld1 Triage Assessment: 09:53 General: Appears in no apparent distress. comfortable, Behavior is calm, cooperative, ld1 appropriate for age. Pain: Complains of pain in chest Pain radiates to mid back area and right arm Pain currently is 6 out of 10 on a pain scale. Quality of pain is described as sharp, shooting, throbbing, Pain began 2 hours ago. Is intermittent. EENT: No signs and/or symptoms were reported regarding the EENT system. Neuro: Level of Consciousness is awake, alert, obeys commands, Oriented to person, place, time, situation. Cardiovascular: Capillary refill < 3 seconds Patient's skin is warm and dry. Respiratory: Airway is patent Respiratory effort is even, unlabored. GI: Abdomen is round non-distended. : No signs and/or symptoms were reported regarding the genitourinary system. Derm: No signs and/or symptoms reported regarding the dermatologic system. Musculoskeletal: No signs and/or symptoms reported regarding the musculoskeletal system. Historical: - Allergies: 09:53 Aspirin; ld1 - Home Meds: 09:53 None [Active]; ld1 - PMHx: 09:53 Asthma; ld1 - PSHx: 09:53 None; ld1 - Immunization history:: Adult Immunizations up to date. - Social history:: Smoking status: Patient reports the use of cigarette tobacco products, smokes one pack cigarettes per day. Patient uses alcohol, on a daily basis. street drugs, cocaine. Screenin:17 [facility] ED Fall Risk Assessment (Adult) History of falling in the last 3 months, cp4 including since admission No falls in past 3 months (0 pts) Confusion or Disorientation No (0 pts) Intoxicated or Sedated No (0 pts) Impaired Gait No (0 pts) Mobility Assist Device Used No (0 pt) Altered Elimination No (0 pt) Score/Fall Risk Level 0 - 2 = Low Risk Oriented to surroundings, Maintained a safe environment, Educated pt \\T\\ family on fall prevention, incl call for assistance when getting out of bed, Hourly rounding (assess needs \\T\\ fall precautionary measures) done. Abuse screen: Denies threats or abuse. Nutritional screening: No deficits noted. Tuberculosis screening: No symptoms or risk factors identified. Assessment: 10:46 Reassessment: Patient and/or family updated on plan of care and expected duration. Pain ll1 level reassessed. 13:06 Reassessment: Pt requesting to sign out AMA - states "I will not be staying here." ld1 Notified ERP. PT signed out AMA>. Vital Signs: 09:52 BP 125 / 69; Pulse 79; Resp 18; Temp 98.1(TE); Pulse Ox 100% on R/A; Weight 64.86 kg; ld1 Height 5 ft. 7 in. ; Pain 6/10; 13:07 BP 124 / 73; Pulse 71; Resp 18; Pulse Ox 100% on R/A; Pain 0/10; ld1 09:52 Body Mass Index 22.40 (64.86 kg, 170.18 cm) ld1 09:52 Pain Scale: Adult ld1 13:07 Pain Scale: Adult ld1 ED Course: 09:40 Patient arrived in ED. sb4 09:41 Daisy Velasco PA-C is PHCP. sb4 09:41 Brandon Valente MD is Attending Physician. sb4 09:53 Triage completed. ld1 09:53 Arm band placed on right wrist. EKG completed in triage. Results shown to MD. ld1 10:08 Inserted saline lock: 20 gauge in right wrist, using aseptic technique. Blood collected.bc6 10:17 XRAY Chest (1 view) In Process Unspecified. EDMS 10:46 Patient placed in an exam room, on a stretcher. ll1 11:16 Melissa Butler is Primary Nurse. cp4 11:17 Bed in low position. Call light in reach. Side rails up X 1. cp4 11:17 No provider procedures requiring assistance completed. cp4 12:03 Troponin High Sensitivity Sent. cp4 12:56 Sancho Miller MD is Hospitalizing Provider. sb4 Administered Medications: No medications were administered Medication: 11:17 VIS not applicable for this client. cp4 Outcome: 12:56 Decision to Hospitalize by Provider. sb4 13:07 Patient left the ED. ld1 Signatures: Dispatcher [employer] EDMS Addy Lane RN RN ll1 Veronica Isaac RN RN ld1 Daisy Velasco PARoc PA-Donald sb4 Minnie Lao bc6 Melissa Butler cp4
[2023-09-06 13:56] VITALS: TEMP 98.1; O2SAT 100
[2023-09-06 13:57] VITALS: BP 124/73
--- NOTE | 2023-09-07 14:50 | EKG ---
Test Date: 2023-09-06 Test Time: 10:00:22 Painter Barrel: LYLY MEASUREMENT RESULTS: Intervals: Rate: 81 NE: 176 QRSD: 92 QT: 388 QTc: 450 [place]: P: 60 NE: 176 QRS: 90 T: 34 INTERPRETIVE STATEMENTS: Normal sinus rhythm Rightward axis Anteroseptal infarct, age undetermined Abnormal ECG Compared to ECG 06/05/2023 10:18:02 Myocardial infarct finding now present Electronically Signed On 09-07-23 14:46:07 WASTE REMOVALIST by Jerald Hdez
== END 2023-09-06 13:07 | disposition left against medical advice (07) ==
LOC: ER 09:40
DX: F14.10 Cocaine abuse, uncomplicated (principal)
CPT/HCPCS: 36415; 71045; 80048; 80076; 83735; 83880; 84484; 85025; 85610; 93005; 99284

== ENCOUNTER 2023-09-08 11:46 | Emergency (ER) | payer SELFPAY ==
--- OUTSIDE RECORDS SUMMARY | 2023-09-08 11:50 | XMS REPORT | Continuity of Care Document ---
:1975 Author Organization [facility] t Address [address] [facility] [address] [place] [address] Care Team Providers Name Role Phone Marii Leija Primary Care Physician JEAN PIERRE CALZADA Attending Clinician Unavailable Roscoe DAS, Leonarda Ken Attending Clinician Unavailable Dottie DAS, Darron Attending Clinician Unavailable Briseida Ruiz PA-C Attending Clinician Mary Jo Kaplan Attending Clinician Payers Payer Name Policy Type Policy Number Effective Date Expiration Date S ource Problems Condition Condition Condition Status Onset Resolution Last Treating Co mments Source Name Details Category Date Date Treatment Clinician Date Alcohol Alcohol Disease Active Univers abuse abuse 3-20 ity of 00:00: [place] [facility] Marijuana Marijuana Disease Active Uni vers abuse abuse 3-20 ity of 00:00: [address] Cocaine Cocaine Disease Active Univers abuse abuse 3-20 ity of 00:00: [address] Contracept Contracept Disease Active U nivers demario demario 3-20 [place] [facility] Nexplanon Nexplanon Disease Active Uni vers removal removal 11-05 ity of 00:00: [place] [facility] Well woman Well woman Disease Active Overview : Univers exam exam 11-05 Formattin ity of 00:00: g of this [place] note Medical might be Branch different from the original. 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 Manager [employer] Tobacco Tobacco Disease Active Univers use use 11-05 ity of disorder disorder 00:00: 00 [facility] Branch Irregular Irregular Disease Active Uni vers menstrual menstrual 11-05 ity of cycle cycle 00:00: [facility] Allergies, Adverse Reactions, Alerts Allergy Allergy Status Severity Reaction(s) Onset Inactive Treating Comm ents Source Name Type Date Date Clinician Aspirin Propensi Active Shortness of U nivers ty to Breath 11-03 ity of adverse 00:00: [place] reaction 00 Medical s Branch ASPIRIN DRUG Active SOB Univers INGREDI 11-03 ity of 00:00: [place] [address] [place] [address] Social History Social Habit Start Date Stop Date Quantity Comments Source History of tobacco Cigarette Smoker University of use [facility] Exposure to Yes University of SARS-CoV-2 (event) [facility] Cigarettes smoked 2021-06-17 2021-06-17 Univers ity of current (pack per 00:00:00 00:00:00 ) - Reported Branch Cigarette 2021-06-17 2021-06-17 University of pack-years 00:00:00 00:00:00 [facility] Tobacco use and 2021-06-17 2021-06-17 Never used Universit y of exposure 00:00:00 00:00:00 [facility] Alcohol intake 2021-06-17 2021-06-17 .86 /d University of 00:00:00 00:00:00 [facility] Tobacco Comment 2017-12-25 2017-12-25 10 cigarettes per Un iversity of 00:00:00 00:00:00 day [facility] Sex Ass[birth year] At [birth year] Universit y of 00:00:00 00:00:00 [facility] Smoking Status Start Date Stop Date Source Current every day smoker 2021-06-17 00:00:00 Uni versity of [facility] Medications Ordered Filled Start Stop Current Ordering Indication Dosage Frequency Signature Comments Components Source Medication Medication Date Date Medication? Clinician (SIG) Name Name sheridan Yes [id number] 250mg Take 1 Univers n 250 mg 9-10 tablet by ity of tablet 00:00: mouth [place] 00 daily. Medical Take 500 Branch mg day 1, then 250 mg days 2 to 5. bromphenira Yes [id number] 5mL Take 5 mL Univers mine-pseudo 9-10 by mouth 4 it y of ephedrine-D 00:00: (four[place] (BROMFED 00 times Medical DM) 2-30-10 daily as Bran ch mg/5 mL needed for syrup Congestion /Allergies . albuterol Yes [id number] 2{puff} Inhale 2 Univers 90 9-10 Puffs ity of mcg/actuati 00:00: every 6 Rom as on inhaler 00 (six) Medical hours as Branch needed for Wheezing or Shortness of Breath. cetirizine Yes [id number] 10mg Take 1 Univers 10 mg 9-10 tablet by ity of tablet 00:00: mouth [place] 00 daily. Medical Branch iwonaromyci Yes [id number] 250mg Take 1 Univers n 250 mg 9-10 tablet by ity of tablet 00:00: mouth [place] 00 daily. Medical Take 500 Branch mg day 1, then 250 mg days 2 to 5. bromphenira Yes [id number] 5mL Take 5 mL Univers mine-pseudo 9-10 by mouth 4 it y of ephedrine-D 00:00: (four[place] (BROMFED 00 times Medical DM) 2-30-10 daily as Bran ch mg/5 mL needed for syrup Congestion /Allergies . albuterol Yes [id number] 2{puff} Inhale 2 Univers 90 9-10 Puffs ity of mcg/actuati 00:00: every 6 Rom as on inhaler 00 (six) Medical hours as Branch needed for Wheezing or Shortness of Breath. cetirizine Yes [id number] 10mg Take 1 Univers 10 mg 9-10 tablet by ity of tablet 00:00: mouth [place] 00 daily. Medical Branch marciithromyci Yes [id number] 250mg Take 1 Univers n 250 mg 9-10 tablet by ity of tablet 00:00: mouth [place] 00 daily. Medical Take 500 Branch mg day 1, then 250 mg days 2 to 5. bromphenira 2020-0 Yes [id number] 5mL Take 5 mL Univers mine-pseudo 9-10 by mouth 4 it y of ephedrine-D 00:00: (four[place] (BROMFED 00 times Medical DM) 2-30-10 daily as Bran ch mg/5 mL needed for syrup Congestion /Allergies . albuterol 2020-0 Yes [id number] 2{puff} Inhale 2 Univers 90 9-10 Puffs ity of mcg/actuati 00:00: every 6 Rom as on inhaler 00 (six) Medical hours as Branch needed for Wheezing or Shortness of Breath. cetirizine 0 Yes [id number] 10mg Take 1 Univers 10 mg 9-10 tablet by ity of tablet 00:00: mouth [place] 00 daily. Medical Branch azithromyci 0 Yes [id number] 250mg Take 1 Univers n 250 mg 9-10 tablet by ity of tablet 00:00: mouth [place] 00 daily. Medical Take 500 Branch mg day 1, then 250 mg days 2 to 5. bromphenira 2020-0 Yes [id number] 5mL Take 5 mL Univers mine-pseudo 9-10 by mouth 4 it y of ephedrine-D 00:00: (four[place] (BROMFED 00 times Medical DM) 2-30-10 daily as Bran ch mg/5 mL needed for syrup Congestion /Allergies . albuterol 0 Yes [id number] 2{puff} Inhale 2 Univers 90 9-10 Puffs ity of mcg/actuati 00:00: every 6 Rom as on inhaler 00 (six) Medical hours as Branch needed for Wheezing or Shortness of Breath. cetirizine 2020-0 Yes [id number] 10mg Take 1 Univers 10 mg 9-10 tablet by ity of tablet 00:00: mouth [place] 00 daily. Medical Branch azithromyci 2020-0 Yes [id number] 250mg Take 1 Univers n 250 mg 9-10 tablet by ity of tablet 00:00: mouth [place] 00 daily. Medical Take 500 Branch mg day 1, then 250 mg days 2 to 5. bromphenira Yes [id number] 5mL Take 5 mL Univers mine-pseudo 9-10 by mouth 4 it y of ephedrine-D 00:00: (four[place] (BROMFED 00 times Medical DM) 2-30-10 daily as Bran ch mg/5 mL needed for syrup Congestion /Allergies . albuterol Yes [id number] 2{puff} Inhale 2 Univers 90 9-10 Puffs ity of mcg/actuati 00:00: every 6 Rom as on inhaler 00 (six) Medical hours as Branch needed for Wheezing or Shortness of Breath. cetirizine Yes [id number] 10mg Take 1 Univers 10 mg 9-10 tablet by ity of tablet 00:00: mouth [place] 00 daily. Medical Branch ALBUTEROL Yes Inhale. Unive rs SULFATE 3-20 ity of (VENTOLIN 15:20: [place] HFA INHALE) Medical Branch ALBUTEROL Yes Inhale. Unive rs [...] ity of (PROVENTIL 10:20: [place] INHALE) 29 [facility] Vital Signs Vital Name Observation Time Observation Value Comments Source Systolic blood 2021-06-17 21:53:00 137 mm[Hg] Univer sity of pressure [facility] Diastolic blood 2021-06-17 21:53:00 87 mm[Hg] Unive rsity of pressure [facility] Heart rate 2021-06-17 21:53:00 100 /min [facility] Body temperature 2021-06-17 21:53:00 36.78 Fior [facility] Respiratory rate 2021-06-17 21:53:00 18 /min [facility] Body height 2021-06-17 21:53:00 162.6 cm [facility] Oxygen saturation in 2021-06-17 21:53:00 98 /min [facility] Arterial blood by [facility] Pulse oximetry Branch Procedures This patient has no known procedures. Encounters Start End Encounter Admission Attending Care Care Encounter Source Date/Time Date/Time Type Type Clinicians Facility Department ID 2023-09-07 2023-09-07 Outpatient ZHENGJEAN PIERRE ALEXANDER RUCHI GIANG [id number] [place] 00:00:00 00:00:00 Seybol d 2023-08-31 2023-08-31 Outpatient [facility] [id number] Shahab 13:47:01 13:47:01 [id number] [place] 2023-08-07 2023-08-07 Outpatient [facility] [id number] Shahab 16:33:12 16:33:12 [id number] [place] 2023-07-03 2023-07-03 Outpatient [facility] [id number] Shahab 11:10:36 11:10:36 [id number] [place] 2023-06-11 2023-06-11 Outpatient [facility] [id number] Shahab 11:28:09 11:28:09 [id number] [place] 2023-06-08 2023-06-08 Outpatient [facility] [id number] Shahab 10:14:09 10:14:09 [id number] F [place] 2021-06-20 2021-06-20 Letter SIMI Malhotra [id number] Univers 00:00:00 00:00:00 (Out) Leonarda Ken JOAQUIN [id number] it y of [facility] [id number] Rom as [id number] [address] 2021-06-20 2021-06-20 Telephone SIMI Sinclair [id number] Univers 00:00:00 00:00:00 Darron JOAQUIN [id number] ity of [facility] [id number] Rom as [id number] [address] 2021-06-17 2021-06-17 Urgent Sara Briseida [facility] [id number] Univers 14:53:50 17:11:21 Care [facility] [id number] [facility] [id number] Rom as Chap[place]?Blea [phone] Ak prosper mitchell [address] [place] [address] Medical Office Building 2021-06-17 2021-06-17 Outpatient R [facility] [id number] Univers 14:00:00 14:00:00 ity of [facility] Results This patient has no known results.
--- NOTE | 2023-09-08 12:35 | RAD REPORT ---
EXAM DESCRIPTION: RAD - Chest Single View - 09/08/2023 12:23 pm CLINICAL HISTORY: CHEST PAIN Chest pain. COMPARISON: Chest Single View dated 09/06/2023; Chest Single View dated 06/05/2023; Chest Single View dated 02/15/2023; Chest Single View dated 05/28/2019 FINDINGS: Portable technique limits examination quality. The lungs are grossly clear. The heart is normal in size. No displaced fractures. IMPRESSION: No acute intrathoracic process suspected.
[2023-09-08 12:55] LABS: Absolute Lymphocytes (CBC) 3.1 K/uL (0.7-4.9); Hematocrit 37.3 % (36.0-45.0); Lymphocytes % 25.9 % (15.3-44.8); MCV 90.9 fL (80-100); MPV 8.6 fL (7.6-11.3); Platelets 335 thou/uL (152-406); RBC Red Blood Cell Count 4.11 M/uL (3.86-4.86)
[2023-09-08 13:14] LABS: Potassium 3.8 mEq/L (3.5-5.1); Troponin High Sensitivity 10.3 pg/mL (<58.9)
--- NOTE | 2023-09-08 14:54 | ER ---
Nurse's Notes [facility] Name: Grayson Morales Age: 47 yrs Sex: Female : 1975 Arrival Date: 09/08/2023 Time: 11:46 Bed 19 Private MD: Diagnosis: Chest pain, unspecified Presentation: 09/08 11:53 Chief complaint: Patient states: Chest pain since this morning - woke me out of my ld1 sleep. Radiates down right arm. Pt reports being here last week for same thing - signed out AMA with elevated troponin. History of cocaine use on the weekends. Past two weeks chest pain has increased. Pt reports taking 4 81mg ASA prior to arrival. Coronavirus screen: At this time, the client does not indicate any symptoms associated with coronavirus-19. Ebola Screen: No symptoms or risks identified at this time. Initial Sepsis Screen: Does the patient meet any 2 criteria? No. Patient's initial sepsis screen is negative. Does the patient have a suspected source of infection? No. Patient's initial sepsis screen is negative. Risk Assessment: Do you want to hurt yourself or someone else? Patient reports no desire to harm self or others. Onset of symptoms was September 08, 2023. 11:53 Method Of Arrival: Ambulatory ld1 11:53 Acuity: DEIRDRE 2 ld1 Triage Assessment: 11:53 General: Appears in no apparent distress. uncomfortable, Behavior is cooperative, ld1 appropriate for age, anxious. Pain: Complains of pain in chest Pain radiates to right arm Pain currently is 10 out of 10 on a pain scale. Quality of pain is described as sharp, shooting, Pain began suddenly, Is intermittent. EENT: No signs and/or symptoms were reported regarding the EENT system. Neuro: Level of Consciousness is awake, alert, obeys commands, Oriented to person, place, time, situation. Cardiovascular: Capillary refill < 3 seconds Patient's skin is warm and dry. Cardiovascular: Chest pain is described as severe. Respiratory: Airway is patent Respiratory effort is even, unlabored. GI: Abdomen is flat, non-distended, Reports nausea. : No signs and/or symptoms were reported regarding the genitourinary system. Derm: No signs and/or symptoms reported regarding the dermatologic system. Musculoskeletal: No signs and/or symptoms reported regarding the musculoskeletal system. [employer] ST[employer] ASSOCIATE: 15:50 LMP N/A - control method, Not me1 Historical: - Allergies: 11:52 Aspirin; ld1 - Home Meds: 11:52 amlodipine 10 mg tablet 1 tab daily [Active]; lisinopril 20 mg Oral tablet daily ld1 [Active]; hydrochlorothiazide 12.5 mg Oral tablet 1 tab daily [Active]; - PMHx: 11:52 Asthma; ld1 11:52 Hypertensive disorder; ld1 - PSHx: 11:52 None; ld1 - Immunization history:: Adult Immunizations up to date. - Social history:: Smoking status: Patient denies any tobacco usage or history of. Patient uses street drugs, cocaine. Screenin:45 [facility] ED Fall Risk Assessment (Adult) History of falling in the last 3 months, me1 including since admission No falls in past 3 months (0 pts) Confusion or Disorientation No (0 pts) Intoxicated or Sedated No (0 pts) Impaired Gait No (0 pts) Mobility Assist Device Used No (0 pt) Altered Elimination No (0 pt) Score/Fall Risk Level 0 - 2 = Low Risk Maintained a safe environment, Hourly rounding (assess needs \T\ fall precautionary measures) done, Used ambulatory aids as needed (educated on \T\ assisted with). Abuse screen: Denies threats or abuse. Nutritional screening: No deficits noted. Tuberculosis screening: No symptoms or risk factors identified. Assessment: 15:45 Reassessment: No changes from previously documented assessment. Pain: Denies pain. me1 Vital Signs: 11:53 BP 137 / 83; Pulse 90; Resp 18; Temp 98.6(TE); Pulse Ox 100% on R/A; Weight 62.6 kg; ld1 Height 5 ft. 4 in. ; Pain 10/10; 13:00 BP 110 / 78; Pulse 77; Resp 18; Pulse Ox 100% on R/A; me1 14:00 BP 123 / 81; Pulse 80; Resp 18; Pulse Ox 100% on R/A; me1 15:00 BP 107 / 59; Pulse 81; Resp 15; Pulse Ox 100% on R/A; me1 15:45 BP 123 / 81; Pulse 80; Resp 13; Pulse Ox 100% on R/A; me1 11:53 Body Mass Index 23.69 (62.60 kg, 162.56 cm) ld1 11:53 Pain Scale: Adult ld1 ED Course: 11:49 Patient arrived in ED. rg4 11:51 Yamilet Beebe FNP is PSYCHIATRICP. [facility] 11:51 Zak Irving MD is Attending Physician. [facility] 11:53 Arm band placed on right wrist. ld1 11:56 Triage completed. ld1 12:23 Natalie Brooks, RN is Primary Nurse. me1 12:24 XRAY Chest (1 view) In Process Unspecified. EDMS 12:37 Inserted saline lock: 22 gauge in right wrist, using aseptic technique. me1 12:37 CBC with Diff Sent. me1 12:38 NT PRO-BNP Sent. me1 12:38 PT-INR Sent. me1 12:38 Troponin HS Sent. me1 14:20 Troponin High Sensitivity: draw at 2pm Sent. me1 15:45 Patient has correct armband on for positive identification. Bed in low position. Call wy1 light in reach. Side rails up X 1. Provided Education on: POC. Verbalized understanding. . Client placed on continuous cardiac and pulse oximetry monitoring. NIBP monitoring applied. residential monitor on. 15:45 No provider procedures requiring assistance completed. Patient maintains SpO2 wy1 saturation greater than 95% on room air. 15:50 IV discontinued, intact, bleeding controlled, No redness/swelling at site. Pressure me1 dressing applied. Administered Medications: No medications were administered Medication: 15:45 VIS not applicable for this client. wy1 Outcome: 14:54 Discharge ordered by . [facility] 15:50 Discharged to home ambulatory, wy1 15:50 Condition: stable 15:50 Discharge instructions given to patient, Instructed on discharge instructions, follow up and referral plans. Demonstrated understanding of instructions, follow-up care, 15:51 Patient left the ED. me1 Signatures: Dispatcher [employer] Fransisca Chin rg4 Veronica Isaac RN RN 1 Yamilet Beebe FNP [place] [phone] Natalie Brooks, RN RN wy1 Corrections: (The following items were deleted from the chart) 11:53 11:52 Home Meds: None; ld1 ld1 11:57 11:53 Chief complaint: Patient states: Chest pain since this morning - woke me out of ld1 my sleep. Radiates down right arm. Pt reports being here last week for same thing - signed out AMA with elevated troponin. History of cocaine use on the weekends. Past two weeks chest pain has increased. ld1 12:38 12:37 BASIC METABOLIC PANEL+C.LAB.BRZ drawn and sent. me1 EDMS 15:50 15:00 BP 123 / 81; Pulse 80bpm; Resp 13bpm; Pulse Ox 100% RA; me1 me1
--- NOTE | 2023-09-08 14:54 | EDPHYS ---
Physician Documentation [facility] Name: Grayson Morales Age: 47 yrs Sex: Female : 1975 Arrival Date: 09/08/2023 Time: 11:46 Bed 19 Private MD: LAURA Physician Zak Irving HPI: 09/08 11:53 This 47 yrs old Black Female presents to ER via Ambulatory with complaints of Chest jh7 Pain, Arm Pain. 11:53 Onset: The symptoms/episode began/occurred at 11:00. Associated signs and symptoms: jh7 Pertinent positives: chest pain, Pertinent negatives: fever, shortness of breath, vomiting, wheezing. 47-year-old female presents to the ER complaining of chest pain, right arm tingling, cough, and nausea. She reports that the cough began last night, but the chest pain and arm pain began at 11:00 today. History of asthma and hypertension. She also reports that she does cocaine on the weekends with the last use being last night. She states that she left AMA last week after being diagnosed with an elevated troponin. 324 of aspirin taken prior to arrival.. [facility]: 15:50 LMP N/A - control method, Not me1 Historical: - Allergies: 11:52 Aspirin; ld1 - Home Meds: 11:52 amlodipine 10 mg tablet 1 tab daily [Active]; lisinopril 20 mg Oral tablet daily ld1 [Active]; hydrochlorothiazide 12.5 mg Oral tablet 1 tab daily [Active]; - PMHx: 11:52 Asthma; ld1 11:52 Hypertensive disorder; ld1 - PSHx: 11:52 None; ld1 - Immunization history:: Adult Immunizations up to date. - Social history:: Smoking status: Patient denies any tobacco usage or history of. Patient uses street drugs, cocaine. ROS: 11:53 Constitutional: Negative for fever, chills, and weight loss, Eyes: Negative for injury, jh7 pain, redness, and discharge, Neck: Negative for injury, pain, and swelling, 11:53 Back: Negative for injury and pain, MS/Extremity: Negative for injury and deformity, Skin: Negative for injury, rash, and discoloration, Neuro: Negative for headache, weakness, numbness, tingling, and seizure, 11:53 Cardiovascular: Positive for chest pain, 11:53 Respiratory: Positive for cough, Negative for shortness of breath, 11:53 Abdomen/GI: Positive for nausea, Negative for abdominal pain, vomiting, diarrhea, 11:53 All other systems are negative, Exam: 11:53 Constitutional: This is a well developed, well nourished patient who is awake, alert, jh7 and in no acute distress. Head/Face: Normocephalic, atraumatic. ENT: Nares patent. No nasal discharge, no septal abnormalities noted. Tympanic membranes are normal and external auditory canals are clear. Oropharynx with no redness, swelling, or masses, exudates, or evidence of obstruction, uvula midline. Mucous membranes moist. Neck: Trachea midline, no thyromegaly or masses palpated, and no cervical lymphadenopathy. Supple, full range of motion without nuchal rigidity, or vertebral point tenderness. No Meningismus. Cardiovascular: Regular rate and rhythm with a normal S1 and S2. No gallops, murmurs, or rubs. Normal PMI, no JVD. No pulse deficits. Respiratory: Lungs have equal breath sounds bilaterally, clear to auscultation and percussion. No rales, rhonchi or wheezes noted. No increased work of breathing, no retractions or nasal flaring. Abdomen/GI: Soft, non-tender, with normal bowel sounds. No distension or tympany. No guarding or rebound. No evidence of tenderness throughout. Skin: Warm, dry with normal turgor. Normal color with no rashes, no lesions, and no evidence of cellulitis. MS/ Extremity: Pulses equal, no cyanosis. Neurovascular intact. Full, normal range of motion. Neuro: Awake and alert, GCS 15, oriented to person, place, time, and situation. Cranial nerves II-XII grossly intact. Motor strength 5/5 in all extremities. Sensory grossly intact. Cerebellar exam normal. Normal gait. Vital Signs: 11:53 BP 137 / 83; Pulse 90; Resp 18; Temp 98.6(TE); Pulse Ox 100% on R/A; Weight 62.6 kg; ld1 Height 5 ft. 4 in. ; Pain 10/10; 13:00 BP 110 / 78; Pulse 77; Resp 18; Pulse Ox 100% on R/A; me1 14:00 BP 123 / 81; Pulse 80; Resp 18; Pulse Ox 100% on R/A; me1 15:00 BP 107 / 59; Pulse 81; Resp 15; Pulse Ox 100% on R/A; me1 15:45 BP 123 / 81; Pulse 80; Resp 13; Pulse Ox 100% on R/A; me1 11:53 Body Mass Index 23.69 (62.60 kg, 162.56 cm) ld1 11:53 Pain Scale: Adult ld1 MDM: 11:51 Patient medically screened. [facility] 13:15 ED course: Informed the patient of lab and imaging results. She stated that she would [facility] prefer not to be admitted. She agreed to allow us to repeat the troponin and if it significantly elevates, she will be admitted. The patient agrees to the plan of care.. 14:50 Differential diagnosis: Acute MT, NSTEMI, stable angina, pneumonia, cardiac arrhythmia, jh costochondritis. Data reviewed: vital signs, nurses notes, lab test result(s), EKG, radiologic studies, plain films. Consideration of Admission/Observation Escalation of care including admission/observation considered. Independent interpretation of the following test(s) in the Emergency Department EKG: See my EKG interpretation above. Care significantly affected by the following chronic conditions: Hypertension. Care significantly affected by the following Social Determinants of Health: Misuse of alcohol and/or drugs. Scoring Tools HEART Score: Total Score = 5. Counseling: I had a detailed discussion with the patient and/or guardian regarding the historical points, exam findings, and any diagnostic results supporting the discharge/admit diagnosis, the need for outpatient follow up, a dean, to return to the emergency department if symptoms worsen or persist or if there are any questions or concerns that arise at home. Response to treatment: the patient's symptoms have resolved after treatment, the patient's pain is gone. Special discussion: Patient requested to be discharged but will return with any new concerning symptoms.. 09/08 11:58 Order name: Basic Metabolic Panel; Complete Time: 13:24 [facility] 09/08 11:58 Order name: CBC with Diff; Complete Time: 13:14 [facility] 09/08 11:58 Order name: NT PRO-BNP; Complete Time: 13:24 [facility] 09/08 11:58 Order name: PT-INR; Complete Time: 13:14 [facility] 09/08 11:58 Order name: Troponin HS; Complete Time: 13:24 [facility] 09/08 13:27 Order name: Troponin High Sensitivity: draw at 2pm; Complete Time: 14:48 [facility] 09/08 11:58 Order name: XRAY Chest (1 view); Complete Time: 12:41 [facility] 09/08 11:58 Order name: EKG; Complete Time: 11:59 [facility] 09/08 11:58 Order name: Cardiac monitoring; Complete Time: 12:46 [facility] 09/08 11:58 Order name: EKG - Nurse/Tech; Complete Time: 12:46 [facility] 09/08 11:58 Order name: IV Saline Lock; Complete Time: 12:37 [facility] 09/08 11:58 Order name: Labs collected and sent; Complete Time: 12:37 [facility] 09/08 11:58 Order name: O2 Per Protocol; Complete Time: 12:37 [facility] 09/08 11:58 Order name: O2 Sat Monitoring; Complete Time: 12:37 [facility] EC:43 Rate is 78 beats/min. Rhythm is regular. QRS [place] is Normal. LA interval is normal at [facility] 184 msec. QRS interval is normal at 80 msec. QT interval is normal at 400 msec. No Q waves. T waves are Inverted in leads I, II, V4, V5, V6. Clinical impression: Normal sinus rhythm with T wave abnormality indicating possible inferior and anterior lateral ischemia. Administered Medications: No medications were administered Disposition Summary: 09/08/23 14:54 Discharge Ordered Notes: Location: [place] [address] Problem: new [facility] Symptoms: are resolved [facility] Condition: Stable [facility] Diagnosis - Chest pain, unspecified [facility] Followup: [facility] - With: Private Physician - When: 2 - 3 days - Reason: Recheck today's complaints Discharge Instructions: - Discharge Summary Sheet [facility] - Nonspecific Chest Pain, Adult [facility] - Chest Wall Pain [facility] - Electrocardiogram [facility] - Exercise Stress Test [facility] Forms: - Medication Reconciliation Form [facility] - Thank You Letter [facility] - Patient Portal Instructions [facility] - Leadership Thank You Letter [facility] Signatures: Dispatcher [employer] Veronica Yates RN RN ld1 Yamilet Beebe, ADJUSTO WRITER OPERATOR ADJUSTO WRITER OPERATOR [facility] Corrections: (The following items were deleted from the chart) 11:53 11:52 Home Meds: None; ld1 ld1 12:38 11:59 BASIC METABOLIC PANEL+C.LAB.BRZ ordered. EDMS EDMS
[2023-09-08 16:40] VITALS: TEMP 98.6; O2SAT 100
[2023-09-08 16:45] VITALS: BP 123/81
--- NOTE | 2023-09-11 13:39 | EKG ---
Test Date: 2023-09-08 Test Time: 12:43:20 Biomedical Equipment Specialist: MEASUREMENT RESULTS: Intervals: Rate: 78 AL: 184 QRSD: 80 QT: 400 QTc: 456 [place]: P: 59 AL: 184 QRS: 89 T: 185 INTERPRETIVE STATEMENTS: Normal sinus rhythm Septal infarct, age undetermined T wave abnormality, consider inferior ischemia T wave abnormality, consider anterolateral ischemia Abnormal ECG Compared to ECG 09/06/2023 10:00:22 T-wave abnormality now present Possible ischemia now present Right-axis deviation no longer present Myocardial infarct finding still present Electronically Signed On 09-11-23 13:30:07 TOGGLER by Jerald Hdez
== END 2023-09-08 15:51 | disposition home or self-care (01) ==
LOC: ER 11:46
DX: R07.9 Chest pain, unspecified (principal)
CPT/HCPCS: 36415; 71045; 80048; 83880; 84484; 85025; 85610; 93005; 99285

== ENCOUNTER 2024-04-08 04:02 | Emergency (ER) | payer OTHER ==
--- OUTSIDE RECORDS SUMMARY | 2024-04-08 04:08 | XMS REPORT | Continuity of Care Document ---
Author Name Unknown Address [address] [place] [address] [facility] thconnect Address [address] [place] [address] Care Team Providers Care Occupational Rehabilitation Aide Name Role Phone ZAHRAZAHRA LANDIN Primary Care Physician UnavailBRANDT Castillo Attending Clinician Unavailable Doctor Unassigned, [place] Attending Clinician U JEAN PIERRE Potter Attending Clinician Unavailable Roscoe RN, Leonarda Ken Attending Clinician Unavailab Adam DAS, Darron Attending Clinician UnavailBriseida Contreras PA-C Attending Clinician [phone] Mary Jo Kaplan Attending Clinician [phone] Payers Payer Name Policy Type Policy Number Effective Date Expirati on Date Source Problems Condition Name Condition Details Condition Category Status Onset Date Resolution Date Last Treatment Date Treating Clinician Comments Source Alcohol abuse Alcohol abuse Disease Active 12-25 00:00: 00 [facility] Marijuana abuse Marijuana abuse Disease Active 12-25 00:00: 00 [facility] Cocaine abuse Cocaine abuse Disease Active 12-25 00:00: 00 [facility] Contracept demario management Contracept demario management Disease Active 12-25 00:00: 00 [facility] Nexplanon removal Nexplanon removal Disease Active 11-05 00:00: 00 [facility] Well woman exam Well woman exam Disease Active 11-05 00:00: 00 Overview: Formattin g of this note might be different from the original. 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 Manager [employer] [facility] Other and unspecifie d ovarian cyst Other and unspecifie d ovarian cyst Disease Active 11-05 00:00: 00 [facility] Asthma Asthma Disease Active 11-05 00:00: 00 Overview: Formattin g of this note might be different from the original. 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 Manager [employer] [facility] Tobacco use disorder Tobacco use disorder Disease Active 11-05 00:00: 00 [facility] Irregular menstrual cycle Irregular menstrual cycle Disease Active 11-05 00:00: 00 [facility] Allergies, Adverse Reactions, Alerts Allergy Name Allergy Type Status Severity Reaction(s) Onset Date Inactive Date Treating Clinician Comments Source Aspirin Propensi ty to adverse reaction s Active Shortness of Breath 11-03 00:00: 00 [facility] ASPIRIN DRUG INGREDI Active SOB 11-03 00:00: 00 [facility] Social History Social Habit Start Date Stop Date Quantity Comments Source [facility] of tobacco use Cigarette Smoker [facility] Exposure to SARS-CoV-2 (event) Yes [facility] History of Social function 2021-06-17 00:00:00 2021-06-17 00:00:00 [facility] Cigarettes smoked current (pack per day) - Reported 2021-06-17 00:00:00 2021-06-17 00:00:00 [facility] Cigarette pack-years 2021-06-17 00:00:00 2021-06-17 00:00:00 [facility] Tobacco use and exposure 2021-06-17 00:00:00 2021-06-17 00:00:00 Smokeless tobacco non-user [facility] Alcohol intake 2021-06-17 00:00:00 2021-06-17 00:00:00 .86 /d [facility] Tobacco Comment 2017-12-25 00:00:00 2017-12-25 00:00:00 10 cigarettes per day [facility] Sex Assigned At 1975 00:00:00 1975 00:00:00 [facility] Smoking Status Start Date Stop Date Source Smokes tobacco daily 2021-06-17 00:00:00 [facility] Medications Ordered Medication Name Filled Medication Name Start Date Stop Date Current Medication? Ordering Clinician Indication Dosage Frequency Signature (SIG) Comments Components Source azithromyci n 250 mg tablet 06-17 00:00: 00 Yes [id number] 250mg Take 1 tablet by mouth daily. Take 500 mg day 1, then 250 mg days 2 to 5. [facility] bromphenira mine-pseudo ephedrine-D M (BROMFED DM) 2-30-10 mg/5 mL syrup 06-17 00:00: 00 Yes [id number] 5mL Take 5 mL by mouth 4 (four) times daily as needed for Congestion /Allergies . [facility] albuterol 90 mcg/actuati on inhaler 06-17 00:00: 00 Yes [id number] 2{puff} Inhale 2 Puffs every 6 (six) hours as needed for Wheezing or Shortness of Breath. [facility] cetirizine 10 mg tablet 06-17 00:00: 00 Yes [id number] 10mg Take 1 tablet by mouth daily. [facility] ALBUTEROL SULFATE (VENTOLIN HFA INHALE) 320 15:20: 29 Yes Inhale. [facility] ALBUTEROL SULFATE (PROVENTIL INHALE) 320 15:20: 29 Yes Inhale. [facility] ALBUTEROL SULFATE (VENTOLIN HFA INHALE) 320 10:20: 29 Yes Inhale. [facility] Immunizations Ordered Immunization Name Filled Immunization Name Date Status Comments Source TDAP 2014-11-03 00:00:00 Completed [facility] TDAP 2014-11-03 00:00:00 Completed [facility] TDAP 2014-11-03 00:00:00 Completed [facility] TDAP 2014-11-03 00:00:00 Completed [facility] TDAP 2014-11-03 00:00:00 Completed [facility] TDAP Unknown Completed [facility] Vital Signs Vital Name Observation Time Observation Value Comments Tushar ordoñez Systolic blood pressure 2021-06-17 21:53:00 137 mm[Hg] [place] [facility] Diastolic blood pressure 2021-06-17 21:53:00 87 mm[Hg] [facility] Heart rate 2021-06-17 21:53:00 100 /min [facility] Body temperature 2021-06-17 21:53:00 36.78 Fior [facility] Respiratory rate 2021-06-17 21:53:00 18 /min [facility] Body height 2021-06-17 21:53:00 162.6 cm [facility] Oxygen saturation in Arterial blood by Pulse oximetry 2021-06-17 21:53:00 98 /min [place] [facility] Procedures Procedure Date / Time Performed Performing Clinicia n Source REFERRAL- REQUEST/RESPONSE 2023-10-03 06:01:00 Doctor Unassigned, [place] [facility] Encounters Start Date/Time End Date/Time Encounter Type Admission Type Attending Clinicians Care Facility Care Department Encounter ID Source 2023-11-21 11:50:44 2023-11-21 11:50:44 Outpatient [facility] [id number] Shahab Pastrana Lele 2023-11-20 16:34:05 2023-11-20 16:34:05 Outpatient [facility] [id number] Shahab Pastrana Lele 2023-10-09 14:00:00 2023-10-09 14:00:00 Outpatient BRANDT RIBERA [facility] [id number] [facility] 2023-10-03 00:00:00 2023-10-03 00:00:00 Orders Only Doctor Unassigned, [place] [facility] [id number] [facility] 2023-10-02 16:00:16 2023-10-02 16:00:16 Outpatient [facility] [id number] Shahab Pastrana Lele 2023-09-10 15:05:25 2023-09-10 15:05:25 Outpatient [facility] [id number] Shahab Royal 2023-09-07 00:00:00 2023-09-07 00:00:00 Outpatient JEAN PIERRE CALZADA [id number] Ruchi Diez 2023-08-31 13:47:01 2023-08-31 13:47:01 Outpatient [facility] [id number] Shahab Royal 2023-08-07 16:33:12 2023-08-07 16:33:12 Outpatient [facility] [id number] Shahab Royal 2023-07-03 11:10:36 2023-07-03 11:10:36 Outpatient [facility] [id number] Shahab Pastrana Lele 2023-06-11 11:28:09 2023-06-11 11:28:09 Outpatient [facility] [id number] Shahab Pastrana Lele 2023-06-08 10:14:09 2023-06-08 10:14:09 Outpatient [facility] [id number] Shahab Pastrana Mcdavid 2021-06-20 00:00:00 2021-06-20 00:00:00 Letter (Out) Leonarda Malhotra [facility] [id number] [facility] 2021-06-20 00:00:00 2021-06-20 00:00:00 Telephone Darron Sinclair [facility] [id number] [facility] 2021-06-17 14:53:50 2021-06-17 17:11:21 Urgent Care Briseida Ruiz, [facility] [id number] [facility] 2021-06-17 14:00:00 2021-06-17 14:00:00 Outpatient R [facility] [id number] [facility]
[2024-04-08] MEDS ORDERED: FAMOTIDINE 20 MG TAB ONE ×2 (04:50→04:59)
[2024-04-08] MEDS ORDERED: predniSONE 20 MG TAB ONE (04:50)
[2024-04-08] MEDS ORDERED: DIPHENHYDRAMINE 50 MG/ML VIAL ONE (04:50)
--- NOTE | 2024-04-08 05:07 | EDPHYS ---
Physician Documentation [facility] Name: Grayson Morales Age: 48 yrs Sex: Female : 1975 Arrival Date: 04/08/2024 Time: 04:02 Bed 20 Private MD: ED Physician Herminio Reynolds HPI: 04/08 04:24 This 48 yrs old Black Female presents to ER via Unassigned with complaints of Lips sp4 Swelling. 05:02 Patient presents with several days of upper lip swelling extending into the right sp4 cheek. Denied tongue swelling. Patient takes amlodipine 10 mg p.o., lisinopril HCTZ combo pill. Patient reports that she never had similar problems in the past. Patient took Benadryl yesterday at 7 PM without much improvement. . Historical: - Allergies: 04:28 Aspirin; ha1 - Home Meds: 04:28 lisinopril 20 mg Oral tablet daily [Active]; amlodipine 10 mg tablet 1 tab daily ha1 [Active]; hydrochlorothiazide 12.5 mg Oral tablet 1 tab daily [Active]; - PMHx: 04:28 Asthma; Hypertensive disorder; ha1 - Immunization history:: Adult Immunizations up to date. - Infectious Disease History:: Denies. - Social history:: Smoking status: Patient reports the use of cigarette tobacco products, smokes one-half pack cigarettes per day. - Family history:: not pertinent. ROS: 05:02 Constitutional: Negative for fever, chills, and weight loss, positive upper lip sp4 swelling, negative tongue swelling 05:02 All other systems are negative, Exam: 05:02 Constitutional: This is a well developed, well nourished patient who is awake, alert, sp4 and in no acute distress. Head/Face: Normocephalic, atraumatic. Positive moderate upper lip swelling, exam consistent with angioedema, negative tongue swelling Eyes: Pupils equal round and reactive to light, extra-ocular motions intact. Lids and lashes normal. Conjunctiva and sclera are not injected. Cornea within normal limits. Periorbital areas with no swelling, redness, or edema. ENT: Nares patent. No nasal discharge, no septal abnormalities noted. Tympanic membranes are normal and external auditory canals are clear. Oropharynx with no redness, swelling, or masses, exudates, or evidence of obstruction, uvula midline. Mucous membranes moist. Neck: Trachea midline, no thyromegaly or masses palpated, and no cervical lymphadenopathy. Supple, full range of motion without nuchal rigidity, or vertebral point tenderness. Chest/axilla: Normal chest wall appearance and motion. Nontender with no deformity. No lesions are appreciated. Cardiovascular: Regular rate and rhythm with a normal S1 and S2. No gallops, murmurs, or rubs. Normal PMI, no JVD. No pulse deficits. Respiratory: Lungs have equal breath sounds bilaterally, clear to auscultation and percussion. No rales, rhonchi or wheezes noted. No increased work of breathing, no retractions or nasal flaring. Abdomen/GI: Soft, with normal bowel sounds. No distension or tympany. No guarding or rebound. No evidence of tenderness throughout. Back: No spinal tenderness. No costovertebral tenderness. Skin: Warm, dry with normal turgor. Normal color with no rashes, no lesions, and no evidence of cellulitis. MS/ Extremity: Pulses equal, no cyanosis. Neurovascular intact. Full, normal range of motion. Neuro: Awake and alert, GCS 15, oriented to person, place, time, and situation. Cranial nerves II-XII grossly intact. Motor strength 5/5 in all extremities. Sensory grossly intact. Psych: Awake, alert, with orientation to person, place and time. Behavior, mood, and affect are within normal limits Vital Signs: 04:22 BP 142 / 94; Pulse 90; Resp 17 S; Temp 98.1(T); Pulse Ox 100% on R/A; Weight 63.5 kg; ha1 Height 5 ft. 1 in. ; 05:24 BP 139 / 92; Pulse 95; Resp 17 S; Pulse Ox 97% on R/A; ha1 04:22 Body Mass Index 26.45 (63.50 kg, 154.94 cm) [facility] MDM: 04:40 Patient medically screened. sp4 05:12 Differential diagnosis: dental caries, gingivitis, dental abscess, pericoronitis, sp4 aphthous ulcers, acute necrotizing ulcerative gingivitis. Data reviewed: vital signs, nurses notes, old medical records. ED course: will advise to stop Lisinopril. Instead we will prescribe Imdur extended release once a day 30 mg. Will continue HCTZ and amlodipine.. 04/08 04:39 Order name: BMP; Complete Time: 05:54 sp4 Administered Medications: 05:02 Drug: predniSONE PO 60 mg PO once Route: PO; ha1 05:02 Drug: Famotidine PO 20 mg PO once Route: PO; ha1 05:15 Drug: diphenhydrAMINE IVP 25 mg IVP once Route: IVP; Site: left antecubital; ha Disposition Summary: 04/08/24 05:06 Discharge Ordered Notes: STOP taking Lisinopril Location: Home sp4 Problem: new sp4 Symptoms: have improved sp4 Condition: Stable sp4 Diagnosis - Angioedema, acute upper lip swelling, Lisinopril induced angioedema sp4 Followup: sp4 - With: Private Physician - When: 7 - 10 days - Reason: Recheck today's complaints Discharge Instructions: - Discharge Summary Sheet sp4 - Angioedema, [id number] sp4 Forms: - Work release form ha1 - Patient Portal Instructions sp4 Prescriptions: - Isosorbide Mononitrate 30 mg Oral Tablet, Extended Release 24 hr - take 1 tablet ORAL route once daily in the morning; 90 tablet; Refills: 0, sp4 Product Selection Permitted - Hydrochlorothiazide 25 mg Oral tablet - take 1 tablet ORAL route once daily .; 90 tablet; Refills: 0, Product Selection sp4 Permitted Signatures: Dispatcher [employer] Alyce Ascencio RN RN ha1 Herminio Reynolds MD MD sp4
--- NOTE | 2024-04-08 05:07 | ER ---
Nurse's Notes [facility] Name: Grayson Morales Age: 48 yrs Sex: Female : 1975 Arrival Date: 04/08/2024 Time: 04: Bed 20 Private MD: Diagnosis: Angioedema, acute upper lip swelling, Lisinopril induced angioedema Presentation: 04/08 04:22 Chief complaint: Patient states: Sunday morning I woke up and I noticed my upper lip ha1 was swollen, I took Benadryl and it is not helping. 04:22 Coronavirus screen: Vaccine status: Patient reports being unvaccinated. Ebola Screen: ha1 No symptoms or risks identified at this time. Initial Sepsis Screen: Does the patient meet any 2 criteria? No. Patient's initial sepsis screen is negative. Does the patient have a suspected source of infection? No. Patient's initial sepsis screen is negative. Risk Assessment: Do you want to hurt yourself or someone else? Patient reports no desire to harm self or others. Onset of symptoms was April 08, 2024. 04:22 Method Of Arrival: Ambulatory ha1 04:22 Acuity: DEIRDRE 5 ha1 Triage Assessment: 04:22 General: Appears comfortable, Behavior is calm, cooperative. Pain: Denies pain. EENT: ha1 upper lip swollen . Reports swollen upper lip. Neuro: Level of Consciousness is awake, alert, obeys commands, Oriented to person, place, time, situation. Cardiovascular: Capillary refill < 3 seconds Patient's skin is warm and dry. Respiratory: Airway is patent Respiratory effort is even, unlabored, Respiratory pattern is regular, symmetrical. GI: No signs and/or symptoms were reported involving the gastrointestinal system. : No signs and/or symptoms were reported regarding the genitourinary system. Historical: - Allergies: 04:28 Aspirin; ha1 - Home Meds: 04:28 lisinopril 20 mg Oral tablet daily [Active]; amlodipine 10 mg tablet 1 tab daily ha1 [Active]; hydrochlorothiazide 12.5 mg Oral tablet 1 tab daily [Active]; - PMHx: 04:28 Asthma; Hypertensive disorder; ha1 - Immunization history:: Adult Immunizations up to date. - Infectious Disease History:: Denies. - Social history:: Smoking status: Patient reports the use of cigarette tobacco products, smokes one-half pack cigarettes per day. - Family history:: not pertinent. Screenin:30 [facility] ED Fall Risk Assessment (Adult) History of falling in the last 3 months, ha1 including since admission No falls in past 3 months (0 pts) Confusion or Disorientation No (0 pts) Intoxicated or Sedated No (0 pts) Impaired Gait No (0 pts) Mobility Assist Device Used No (0 pt) Altered Elimination No (0 pt) Score/Fall Risk Level 0 - 2 = Low Risk Oriented to surroundings, Maintained a safe environment, Educated pt \T\ family on fall prevention, incl call for assistance when getting out of bed, Hourly rounding (assess needs \T\ fall precautionary measures) done. Abuse screen: Denies threats or abuse. Denies injuries from another. Nutritional screening: No deficits noted. Tuberculosis screening: No symptoms or risk factors identified. Assessment: 04:22 Reassessment: see triage assessment. ha1 05:24 Reassessment: Patient and/or family updated on plan of care and expected duration. Pain ha1 level reassessed. Patient is alert, oriented x 3, equal unlabored respirations, skin warm/dry/pink. Vital Signs: 04:22 BP 142 / 94; Pulse 90; Resp 17 S; Temp 98.1(T); Pulse Ox 100% on R/A; Weight 63.5 kg; ha1 Height 5 ft. 1 in. ; 05:24 BP 139 / 92; Pulse 95; Resp 17 S; Pulse Ox 97% on R/A; ha1 04:22 Body Mass Index 26.45 (63.50 kg, 154.94 cm) ha1 ED Course: 04:07 Patient arrived in ED. mr 04:22 Patient has correct armband on for positive identification. Bed in low position. Call ha1 light in reach. Side rails up X 1. 04:22 Arm band placed on right wrist. ha1 04:24 Herminio Reynolds MD is Attending Physician. sp4 04:25 Alyce Mosley RN is Primary Nurse. ha1 04:28 Triage completed. ha1 04:40 Missed attempt(s): 22 gauge in right hand. ha1 05:00 Missed attempt(s): 22 gauge Bleeding controlled, band aid applied, catheter tip intact. oe 05:07 Inserted saline lock: 20 gauge in left antecubital area, using aseptic technique. Blood oe collected. 05:25 No provider procedures requiring assistance completed. ha1 Administered Medications: 05:02 Drug: predniSONE PO 60 mg PO once Route: PO; ha1 05:02 Drug: Famotidine PO 20 mg PO once Route: PO; ha1 05:15 Drug: diphenhydrAMINE IVP 25 mg IVP once Route: IVP; Site: left antecubital; ha1 Medication: 04:31 VIS not applicable for this client. ha1 Outcome: 05:06 Discharge ordered by . sp4 05:37 Patient left the ED. ha1 Signatures: Ana Rutherford, Isaac Reg mr Prasad Alyce Kemp RN RN ha1 Herminio Reynolds MD MD sp4
[2024-04-08 05:35] LABS: Anion Gap 6.7 mEq/L (5.0-15.0); Potassium 3.7 mEq/L (3.5-5.1)
[2024-04-08 05:53] VITALS: BP 139/92; TEMP 98.1; O2SAT 97
== END 2024-04-08 05:37 | disposition home or self-care (01) ==
LOC: ER 04:02
DX: T78.3XXA Angioneurotic edema, initial encounter (principal); I10 Essential (primary) hypertension; F17.210 Nicotine dependence, cigarettes, uncomplicated; Z88.6 Allergy status to analgesic agent
CPT/HCPCS: 80048; 36415; J7512; J1200

== ENCOUNTER 2025-07-23 12:13 | Emergency (ER) | payer OTHER, SELFPAY ==
--- OUTSIDE RECORDS SUMMARY | 2025-07-23 12:17 | XMS REPORT | Continuity of Care Document ---
Author Name Unknown Address [address] [facility] [place] [address] Organization [facility] [place] Address [address] [facility] [place] [address] Care Team Providers Care Job Printer Name Role Phone ZAHRA ZAHRA Primary Care Physician BRANDT Coreas Attending Clinician Unavailable Doctor Unassigned, Malo Attending Clinician U JEAN PIERRE Potter Attending Clinician Unavailable Roscoe RN, Leonarda Ken Attending Clinician Unavailab Adam DAS, Darron Attending Clinician UnavailBriseida Contreras PA-C Attending Clinician [phone] Mary Jo Kaplan Attending Clinician [phone] Payers Payer Name Policy Type Policy Number Effective Date Expirati on Date Source Problems Condition Name Condition Details Condition Category Status Onset Date Resolution Date Last Treatment Date Treating Clinician Comments Source Alcohol abuse Alcohol abuse Disease Active 12-25 00:00: 00 [facility] Marijuana abuse Marijuana abuse Disease Active 12-25 00:00: 00 [facility] Cocaine abuse Cocaine abuse Disease Active 12-25 00:00: 00 [facility] Contracept demario management Contracept demario management Disease Active 12-25 00:00: 00 [facility] Nexplanon removal Nexplanon removal Disease Active 11-05 00:00: 00 [facility] Well woman exam Well woman exam Disease Active 11-05 00:00: 00 Overview: Formattin g of this note might be different from the original. 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 Grinder Lap Utility [facility] Other and unspecifie d ovarian cyst Other and unspecifie d ovarian cyst Disease Active 11-05 00:00: 00 [facility] Asthma Asthma Disease Active 11-05 00:00: 00 Overview: Formattin g of this note might be different from the original. 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 Grinder Lap Utility [facility] Tobacco use disorder Tobacco use disorder Disease Active 11-05 00:00: 00 [facility] Irregular menstrual cycle Irregular menstrual cycle Disease Active 11-05 00:00: 00 [facility] Allergies, Adverse Reactions, Alerts Allergy Name Allergy Type Status Severity Reaction(s) Onset Date Inactive Date Treating Clinician Comments Source lisinopr il Propensi ty to adverse reaction to drug Active 06-11 00:00: 00 Shahab Royal Aspirin - Oral Propensi ty to adverse reaction to drug Active 06-08 00:00: 00 Shahab Royal Aspirin Propensi ty to adverse reaction s Active Shortness of Breath 11-03 00:00: 00 [facility] ASPIRIN DRUG INGREDI Active SOB 11-03 00:00: 00 [facility] Social History Social Habit Start Date Stop Date Quantity Comments [facility] of [facility] use Cigarette Smoker [facility] Exposure to SARS-CoV-2 (event) Yes [facility] History of Social function 2021-06-17 00:00:00 2021-06-17 00:00:00 [facility] Cigarettes smoked current (pack per day) - Reported 2021-06-17 00:00:00 2021-06-17 00:00:00 [facility] Cigarette pack-years 2021-06-17 00:00:00 2021-06-17 00:00:00 [facility] Tobacco use and exposure 2021-06-17 00:00:00 2021-06-17 00:00:00 Smokeless tobacco non-user [facility] Alcohol intake 2021-06-17 00:00:00 2021-06-17 00:00:00 .86 /d [facility] Tobacco Comment 2017-12-25 00:00:00 2017-12-25 00:00:00 10 cigarettes per day [facility] Sex Assigned At 1975 00:00:00 1975 00:00:00 [facility] Smoking Status Start Date Stop Date Source Smokes tobacco daily 2021-06-17 00:00:00 [facility] Medications Ordered Medication Name Filled Medication Name Start Date Stop Date Current Medication? Ordering Clinician Indication Dosage Frequency Signature (SIG) Comments Components Source Advair HFA 45 mcg-21 mcg/actuati on aerosol inhaler - 00:00: 00 Yes 2mcg/ac tuation Shahab Royal albuterol sulfate HFA 90 mcg/actuati on aerosol inhaler - 00:00: 00 Yes 2mcg/ac tuation Shahab Royal amlodipine 10 mg tablet - 00:00: 00 Yes 1mg Shahab Royal fluoxetine 20 mg tablet - 00:00: 00 Yes 1mg Shahab Royal hydrochloro thiazide 25 mg tablet - 00:00: 00 Yes 1mg Shahab Royal isosorbide mononitrate ER 30 mg tablet,exte nded release 24 hr - 00:00: 00 Yes 1mg Shahab Royal amlodipine 10 mg tablet 2023-10- 00:00: 00 Yes 1mg Shahab Royal hydrochloro thiazide 25 mg tablet 2023-10 2- 00:00: 00 Yes 1mg Shahab Royal prednisone 20 mg tablet 07-07 00:00: 00 Yes 2mg Shahab Royal cetirizine 5 mg-pseudoep hedrine ER 120 mg tablet,exte nded release,12h r -30 00:00: 00 Yes 1mg Shahab Royal Advair HFA 45 mcg-21 mcg/actuati on aerosol inhaler -05 00:00: 00 Yes 2mcg/ac tuation Shahab Royal albuterol sulfate HFA 90 mcg/actuati on aerosol inhaler -05 00:00: 00 Yes 2mcg/ac tuation Shahab Royal amlodipine 10 mg tablet 9-05 00:00: 00 Yes 1mg Shahab Royal hydrochloro thiazide 25 mg tablet - 00:00: 00 Yes 1mg Shahab Royal isosorbide mononitrate ER 30 mg tablet,exte nded release 24 hr 9-05 00:00: 00 Yes 1mg Shahab Royal isosorbide mononitrate ER 30 mg tablet,exte nded release 24 hr 04-08 00:00: 00 Yes mg Shahab Royal hydrochloro thiazide 25 mg tablet 7- 00:00: 00 Yes mg Shahab Royal amlodipine 10 mg tablet 5-20 00:00: 00 Yes mg Shahab Royal fluoxetine 20 mg tablet 2-14 00:00: 00 Yes mg Shahab Royal HYDROXYZ HCL 25MG 2-14 00:00: 00 Yes Shahab Royal AMLODIPINE 10MG - 00:00: 00 Yes Shahab Royal LISINOP/HCT Z 20-12.5 2-14 00:00: 00 Yes Shahab Royal albuterol sulfate HFA 90 mcg/actuati on aerosol inhaler 11-20 00:00: 00 Yes mcg/act uation Shahab Royal TAKE 1 TABLET DAILY. - 00:00: 00 Yes 20 Shahab Royal TAKE 1 TABLET DAILY. 11-20 00:00: 00 Yes 10 Shahab Royal TAKE 1 TABLET DAILY. - 00:00: 00 Yes Shahab Royal QVAR REDIHAL 40MCG INH - 00:00: 00 Yes Shahab Royal TAKE 1 -2 TABS PO Q4- 6 HRS PRN ANXIETY AND INSOMNIA - 00:00: 00 01-29 00:00 :00 No 25 Shahab Royal SWISH AND SPIT 15 ML TWICE DAILY FOR 10 DAYS - 00:00: 00 Yes Shahab Royal TAKE 2 TABLETS BY MOUTH STAT THEN 1 TABLET BY MOUTH EVERY 8 HOURS FOR 7 DAYS 10-30 00:00: 00 Yes Shahab Royal INAHLE 2 PUFFS EVERY 12 HOURS 2022-10 00:00: 00 01-29 00:00 :00 No 40 Shahab Royal TAKE 1-2 CAPSULES EVERY 12 HOURS DIRECTED. 2022-10 00:00: 00 01-29 00:00 :00 No 100 Shahab Royal TAKE 1 TABLET BY MOUTH EVERY 8 HOURS FOR PAIN. DO NOT EXCEED 4 TABLETS PER DAY 2022-10 00:00: 00 Yes Shahab Royal TAKE 1 CAPSULE BY MOUTH EVERY 8 HOURS UNTIL ALL TAKEN 2022-10 00:00: 00 01-29 00:00 :00 No Shahab Royal TAKE 1 TABLET DAILY. 2022-10 00:00: 00 01-29 00:00 :00 No 10 Shahab Royal TAKE 1 TABLET DAILY. 2022-10 00:00: 00 01-29 00:00 :00 No 20 Shahab Royal TAKE 1 TABLET DAILY IN THE MORNING. 2022-10 00:00: 00 01-29 00:00 :00 No 125 Shahab Zeina Royal QVAR REDIHAL 40MCG INH 2022-10 00:00: 00 01-29 00:00 :00 No Shahab Zeina Lele KRISHNA/POLY/DE X 0.1% OP NADEGE 2022-10 00:00: 00 01-29 00:00 :00 No Shahab Zeina Royal TAKE 1 TABLET DAILY IN THE MORNING. 2022-10 00:00: 00 01-29 00:00 :00 No 125 Shahab Royal TAKE 1 TABLET DAILY. 2022-10 00:00: 00 01-29 00:00 :00 No 10 Shahab Royal TAKE 1 TAB PO QD FOR BLOOD PRESSURE DOSAGE INCREASE 2022-10 00:00: 00 01-29 00:00 :00 No 20 Shahab Zeina Royal INAHLE 2 PUFFS EVERY 12 HOURS 07-04 00:00: 00 01-29 00:00 :00 No 40 Shahab Royal INHALE 2 PUFFS AT 12 HOUR INTERVALS (MORNING AND EVENING). 07-03 00:00: 00 01-29 00:00 :00 No [id number] Shahab Royal TAKE 1 TABLET DAILY IN THE MORNING. 07-03 00:00: 00 01-29 00:00 :00 No 125 Shahab Royal TAKE 1 TABLET DAILY. 07-03 00:00: 01-29 00:00 :00 No 10 Shahab Royal INHALE 2 PUFFS EVERY 4-6 HOURS NEEDED. 07-03 00:00: 00 01-29 00:00 :00 No [id number] Shahab Royal TAKE 1 TABLET DAILY. 07-03 00:00: 00 01-29 00:00 :00 No 10 Shahab Royal INHALE 2 PUFFS EVERY 12 HOURS. 07-03 00:00: 00 01-29 00:00 :00 No 44 Shahab Royal TAKE 1 TABLET DAILY. 06-08 00:00: 00 01-29 00:00 :00 No 10 Shahab Royal TAKE 1 TABLET DAILY. 06-08 00:00: 00 01-29 00:00 :00 No 25 Shahab Royal TLK 1 TABLET BY MOUTH TWICE DAILY 06-05 00:00: 00 01-29 00:00 :00 No Shahab Royal azithromyci n 250 mg tablet 06-17 00:00: 00 Yes [id number] 250mg Take 1 tablet by mouth daily. Take 500 mg day 1, then 250 mg days 2 to 5. [facility] bromphenira mine-pseudo ephedrine-D M (BROMFED DM) 2-30-10 mg/5 mL syrup 06-17 00:00: 00 Yes [id number] 5mL Take 5 mL by mouth 4 (four) times daily as needed for Congestion /Allergies . [facility] albuterol 90 mcg/actuati on inhaler 06-17 00:00: 00 Yes [id number] 2{puff} Inhale 2 Puffs every 6 (six) hours as needed for Wheezing or Shortness of Breath. [facility] cetirizine 10 mg tablet 06-17 00:00: 00 Yes [id number] 10mg Take 1 tablet by mouth daily. [facility] ALBUTEROL SULFATE (VENTOLIN HFA INHALE) 12-25 15:20: 29 Yes Inhale. [facility] ALBUTEROL SULFATE (PROVENTIL INHALE) 12-25 15:20: 29 Yes Inhale. [facility] ALBUTEROL SULFATE (VENTOLIN HFA INHALE) 12-25 10:20: 29 Yes Inhale. [facility] Immunizations Ordered Immunization Name Filled Immunization Name Date Status Comments Source TDAP 2014-11-03 00:00:00 Completed [facility] TDAP 2014-11-03 00:00:00 Completed [facility] TDAP 2014-11-03 00:00:00 Completed [facility] TDAP Unknown Completed [facility] Vital Signs Vital Name Observation Time Observation Value Comments S our Systolic blood pressure 2021-06-17 21:53:00 137 mm[Hg] [facility] Diastolic blood pressure 2021-06-17 21:53:00 87 mm[Hg] [facility] Heart rate 2021-06-17 21:53:00 100 /min [facility] Body temperature 2021-06-17 21:53:00 36.78 Fior [facility] Respiratory rate 2021-06-17 21:53:00 18 /min [facility] Body height 2021-06-17 21:53:00 162.6 cm [facility] Oxygen saturation in Arterial blood by Pulse oximetry 2021-06-17 21:53:00 98 /min [facility] BP Systolic 2024-10-09 15:51:00 159 mm[Hg] Geraldo Royal BP Diastolic 2024-10-09 15:51:00 91 mm[Hg] Anthony Royal Weight Measured 2024-10-09 15:51:00 139.00 pounds Shahab Royal Height Measured 2024-10-09 15:51:00 63.50 inches Shahab F Lele Body Temperature 2024-10-09 15:51:00 97.70 degrees Shahab F Lele Heart Rate 2024-10-09 15:51:00 91.00 /min Mamta en F Lele Respiratory Rate 2024-10-09 15:51:00 18.00 /min Shahab F Lele BP Systolic 2024-07-07 16:37:00 Step hen F Lele BP Diastolic 2024-07-07 16:37:00 Anthony phen F Lele Weight Measured 2024-07-07 16:37:00 Shahab F Lele Height Measured 2024-07-07 16:37:00 Shahab F Lele Body Temperature 2024-07-07 16:37:00 Shahab F Lele Heart Rate 2024-07-07 16:37:00 Mamta en F Lele Respiratory Rate 2024-07-07 16:37:00 Shahab F Lele BP Systolic 2024-06-11 16:52:00 157 mm[Hg] Step hen F Lele BP Diastolic 2024-06-11 16:52:00 108 mm[Hg] Anthony phen F Lele Weight Measured 2024-06-11 16:52:00 146.00 pounds Shahab F Lele Height Measured 2024-06-11 16:52:00 63.50 inches Shahab F Lele Body Temperature 2024-06-11 16:52:00 98.20 degrees Shahab F Lele Heart Rate 2024-06-11 16:52:00 81.00 /min Mamta en F Lele Respiratory Rate 2024-06-11 16:52:00 18.00 /min Shahab F Lele BP Systolic 2023-11-20 16:34:00 144 mm[Hg] Step hen F Lele BP Diastolic 2023-11-20 16:34:00 86 mm[Hg] Anthony phen F Lele Weight Measured 2023-11-20 16:34:00 142.60 pounds Shahab F Lele Height Measured 2023-11-20 16:34:00 63.50 inches Shahab F Lele Body Temperature 2023-11-20 16:34:00 98.20 degrees Shahab F Lele Heart Rate 2023-11-20 16:34:00 83.00 /min Mamta en F Lele Respiratory Rate 2023-11-20 16:34:00 18.00 /min Shahab F Lele BP Systolic 2023-10-02 16:03:00 146 mm[Hg] Step hen F Lele BP Diastolic 2023-10-02 16:03:00 93 mm[Hg] Anthony phen F Lele Weight Measured 2023-10-02 16:03:00 142.20 pounds Shahab F Lele Height Measured 2023-10-02 16:03:00 63.50 inches Shahab F Lele Body Temperature 2023-10-02 16:03:00 98.10 degrees Shahab F Lele Heart Rate 2023-10-02 16:03:00 105.00 /min Step hen F Lele Respiratory Rate 2023-10-02 16:03:00 18.00 /min Shahab F Lele BP Systolic 2023-09-10 15:14:00 122 mm[Hg] Step hen F Lele BP Diastolic 2023-09-10 15:14:00 89 mm[Hg] Anthony phen F Lele Weight Measured 2023-09-10 15:14:00 142.20 pounds Shahab F Lele Height Measured 2023-09-10 15:14:00 63.50 inches Shahab F Lele Body Temperature 2023-09-10 15:14:00 97.80 degrees Shahab F Lele Heart Rate 2023-09-10 15:14:00 80.00 /min Mamta en F Lele Respiratory Rate 2023-09-10 15:14:00 18.00 /min Shahab F Lele BP Systolic 2023-08-31 13:52:00 108 mm[Hg] Step hen F Lele BP Diastolic 2023-08-31 13:52:00 71 mm[Hg] Anthony phen F Lele Weight Measured 2023-08-31 13:52:00 143.80 pounds Shahab F Lele Height Measured 2023-08-31 13:52:00 63.50 inches Shahab F Lele Body Temperature 2023-08-31 13:52:00 98.10 degrees Shahab F Lele Heart Rate 2023-08-31 13:52:00 92.00 /min Mamta en F Lele Respiratory Rate 2023-08-31 13:52:00 Shahab F Lele BP Systolic 2023-08-07 16:37:00 160 mm[Hg] Step hen F Lele BP Diastolic 2023-08-07 16:37:00 109 mm[Hg] Anthony phen F Lele Weight Measured 2023-08-07 16:37:00 145.80 pounds Shahab F Lele Height Measured 2023-08-07 16:37:00 63.50 inches Shahab F Lele Body Temperature 2023-08-07 16:37:00 98.10 degrees Shahab F Lele Heart Rate 2023-08-07 16:37:00 82.00 /min Mamta en F Lele Respiratory Rate 2023-08-07 16:37:00 Shahab F Lele BP Systolic 2023-07-03 11:16:00 145 mm[Hg] Step hen F Lele BP Diastolic 2023-07-03 11:16:00 83 mm[Hg] Anthony phen F Lele Weight Measured 2023-07-03 11:16:00 138.40 pounds Shahab F Lele Height Measured 2023-07-03 11:16:00 63.50 inches Shahab F Lele Body Temperature 2023-07-03 11:16:00 98.40 degrees Shahab F Lele Heart Rate 2023-07-03 11:16:00 91.00 /min Mamta en F Lele Respiratory Rate 2023-07-03 11:16:00 Shahab F Lele BP Systolic 2023-06-08 10:47:00 162 mm[Hg] Step hen F Lele BP Diastolic 2023-06-08 10:47:00 102 mm[Hg] Anthony phen F Lele Weight Measured 2023-06-08 10:47:00 144.20 pounds Shahab F Lele Height Measured 2023-06-08 10:47:00 63.50 inches Shahab F Lele Body Temperature 2023-06-08 10:47:00 98.10 degrees Shahab F Lele Heart Rate 2023-06-08 10:47:00 84.00 /min Mamta en F Lele Respiratory Rate 2023-06-08 10:47:00 Shahab F Lele Procedures Procedure Date / Time Performed Performing Clinicia n Source REFERRAL- REQUEST/RESPONSE 2023-10-03 06:01:00 Doctor Unassigned, Malo [facility] Encounters Start Date/Time End Date/Time Encounter Type Admission Type Attending [facility] Care Department Encounter ID Source 2024-10-09 15:42:49 2024-10-09 15:42:49 Outpatient SFA [facility] [id number] Shahab Royal 2024-10-09 00:00:00 2024-10-09 00:00:00 Outpatient Visit SFA [id number] Shahab Royal 2024-07-08 10:36:25 2024-07-08 10:36:25 Outpatient SFA [facility] [id number] Shahab Royal 2024-07-07 00:00:00 2024-07-07 00:00:00 Outpatient Visit SFA [id number] Shahab Royal 2024-06-11 16:45:47 2024-06-11 16:45:47 Outpatient SFA SFA [id number] Shahab Royal 2024-06-11 00:00:00 2024-06-11 00:00:00 Outpatient Visit SFA [id number] Shahab Royal 2023-11-21 11:50:44 2023-11-21 11:50:44 Outpatient S[facility] [id number] Shahab Royal 2023-11-20 16:34:05 2023-11-20 16:34:05 Outpatient S[facility] [id number] Shahab Royal 2023-10-09 14:00:00 2023-10-09 14:00:00 Outpatient BRANDT RIBERA [facility] [id number] [facility] 2023-10-03 00:00:00 2023-10-03 00:00:00 Orders Only Doctor Unassigned, Malo [facility] [id number] [facility] 2023-10-02 16:00:16 2023-10-02 16:00:16 Outpatient S[facility] [id number] Shahab Royal 2023-09-10 15:05:25 2023-09-10 15:05:25 Outpatient S[facility] [id number] Shahab Royal 2023-09-07 00:00:00 2023-09-07 00:00:00 Outpatient JEAN PIERRE CALZADA [id number] Ruchi Diez 2023-08-31 13:47:01 2023-08-31 13:47:01 Outpatient S[facility] [id number] Shahab Royal 2023-08-07 16:33:12 2023-08-07 16:33:12 Outpatient [facility] [id number] Shahab Royal 2023-07-03 11:10:36 2023-07-03 11:10:36 Outpatient [facility] [id number] Shahab Royal 2023-06-11 11:28:09 2023-06-11 11:28:09 Outpatient [facility] [id number] Shahab Pastrana Lele 2023-06-08 10:14:09 2023-06-08 10:14:09 Outpatient [facility] [id number] Shahab Pastrana [place] 2021-06-20 00:00:00 2021-06-20 00:00:00 Letter (Out) Leonarda Malhotra [facility] [id number] [facility] 2021-06-20 00:00:00 2021-06-20 00:00:00 Telephone Darron Sinclair [facility] [id number] [facility] 2021-06-17 14:53:50 2021-06-17 17:11:21 Urgent Care Briseida Ruiz, [facility] [id number] [facility] 2021-06-17 14:00:00 2021-06-17 14:00:00 Outpatient R [facility] [id number] [facility] Results Test Description Test Time Test Comments Results Result Co mments Source Shahab RoyalLIPID [id number] 00:00:00* Test Item Value Reference Range Interpretation Comme nts CHOLESTEROL (test code = 2210) 281 MG/DL TRIGLYCERIDES (test code = 2232) 148 MG/DL HDL CHOLESTEROL (test code = 2220) 67 MG/DL CALC LDL CHOL (test code = 2237) 185 MG/DL RISK RATIO LDL/HDL (test cod e = 2238) 2.76 RATIO Shahab RoyalHEMOGLOBIN [id number] 00:00:00* Test Item Value Reference Range Interpretation Comme nts HEMOGLOBIN A1c (test code = 26916) 6.0 % Shahab RoyalCOMPREHENSIVE METABOLIC [id number] 00:00:00* Test Item Value Reference Range Interpretation Comme nts GLUCOSE (test code = 2217) 119 MG/DL BUN (test code = 2208) 10 MG/DL CREATININE (test code = 2214) 0.65 MG/DL eGFR (2020 CKD-EPI) (test code = 80746) 111 ML/MIN/1.73 CALC BUN/CREAT (test code = 2235) 15 RATIO SODIUM (test code = 2231) 139 MEQ/L POTASSIUM (test code = 2228) 4.6 MEQ/L CHLORIDE (test code = 2215) 97 MEQ/L CARBON DIOXIDE (test code = 2206) 27 MEQ/L CALCIUM (test code = 2209) 10.2 MG/DL PROTEIN, TOTAL (test code = 2229) 7.6 G/DL ALBUMIN (test code = 2201) 4.9 G/DL CALC GLOBULIN (test code = 2240) 2.7 G/DL CALC A/G RATIO (test code = 2234) 1.8 RATIO BILIRUBIN, TOTAL (test code = 2207) 0.5 MG/DL ALKALINE PHOSPHATASE (test code = 2204) 81 U/L AST (test code = 2218) 20 U/L ALT (test code = 2219) 23 U/L Shahab RoyalLIPID [id number] 00:00:00* Test Item Value Reference Range Interpretation Comme nts CHOLESTEROL (test code = 2210) 281 MG/DL TRIGLYCERIDES (test code = 2232) 148 MG/DL HDL CHOLESTEROL (test code = 2220) 67 MG/DL CALC LDL CHOL (test code = 2237) 185 MG/DL RISK RATIO LDL/HDL (test cod e = 2238) 2.76 RATIO Shahab RoyalHEMOGLOBIN [id number] 00:00:00* Test Item Value Reference Range Interpretation Comme nts HEMOGLOBIN A1c (test code = 87194) 6.0 % Shahab RoyalCOMPREHENSIVE METABOLIC [id number] 00:00:00* Test Item Value Reference Range Interpretation Comme nts GLUCOSE (test code = 2217) 119 MG/DL BUN (test code = 2208) 10 MG/DL CREATININE (test code = 2214) 0.65 MG/DL eGFR (2020 CKD-EPI) (test code = 19923) 111 ML/MIN/1.73 CALC BUN/CREAT (test code = 2235) 15 RATIO SODIUM (test code = 2231) 139 MEQ/L POTASSIUM (test code = 2228) 4.6 MEQ/L CHLORIDE (test code = 2215) 97 MEQ/L CARBON DIOXIDE (test code = 2206) 27 MEQ/L CALCIUM (test code = 2209) 10.2 MG/DL PROTEIN, TOTAL (test code = 2229) 7.6 G/DL ALBUMIN (test code = 2201) 4.9 G/DL CALC GLOBULIN (test code = 2240) 2.7 G/DL CALC A/G RATIO (test code = 2234) 1.8 RATIO BILIRUBIN, TOTAL (test code = 2207) 0.5 MG/DL ALKALINE PHOSPHATASE (test code = 2204) 81 U/L AST (test code = 2218) 20 U/L ALT (test code = 2219) 23 U/L Shahab Pastrana AustinLIPID [id number] 00:00:00* Test Item Value Reference Range Interpretation Comme nts CHOLESTEROL (test code = 2210) 281 MG/DL TRIGLYCERIDES (test code = 2232) 148 MG/DL HDL CHOLESTEROL (test code = 2220) 67 MG/DL CALC LDL CHOL (test code = 2237) 185 MG/DL RISK RATIO LDL/HDL (test cod e = 2238) 2.76 RATIO Shahab RoyalHEMOGLOBIN [id number] 00:00:00* Test Item Value Reference Range Interpretation Comme nts HEMOGLOBIN A1c (test code = 87442) 6.0 % Shahab RoyalPAP TEST, THINPREP, [id number] 00:00:00* Test Item Value Reference Range Interpretation Comme nts SOURCE: (test code = 8001) Cervical/Endocervical SLIDES: (test code = 8011) 1 LMP: (test code = 8021) NEXPLANON SPECIMEN ADEQUACY: (test code = 58210) (NOTE) INTERPRETATION: (test code = 90235) NILM/NO EPITH. 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 PRESS OPERATOR APPRENTICE: (test code = 8101) IONA Carnes(ASCP)IAC LOCATION: (test code = 92263) (NOTE) CPT: (test code = 8140) (NOTE) Shahab Pastrana AustinHPV HIGH RISK WITH GENOTYPE, [id number] 00:00:00* Test Item Value Reference Range Interpretation Comme nts HPV HIGH RISK INTERP (test c ode = 53842) NEGATIVE HPV 16 (test code = 46788) NEGATIVE HPV 18 (test code = 91829) NEGATIVE HPV, HR, OTHER GENOTYPES (te st code = 87446) NEGATIVE Shahab RoyalPAP TEST, THINPREP, [id number] 00:00:00* Test Item Value Reference Range Interpretation Comme nts SOURCE: (test code = 8001) Cervical/Endocervical SLIDES: (test code = 8011) 1 LMP: (test code = 8021) NEXPLANON SPECIMEN ADEQUACY: (test code = 49642) (NOTE) INTERPRETATION: (test code = 23779) NILM/NO EPITH. 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 PRESS OPERATOR APPRENTICE: (test code = 8101) IONA Carnes(ASCP)IAC LOCATION: (test code = 74255) (NOTE) CPT: (test code = 8140) (NOTE) Shahab RoyalHPV HIGH RISK WITH GENOTYPE, [id number] 00:00:00* Test Item Value Reference Range Interpretation Comme nts HPV HIGH RISK INTERP (test c ode = 53090) NEGATIVE HPV 16 (test code = 84227) NEGATIVE HPV 18 (test code = 22436) NEGATIVE HPV, HR, OTHER GENOTYPES (te st code = 08202) NEGATIVE Shahab Pastrana AustinPAP TEST, THINPREP, [id number] 00:00:00* Test Item Value Reference Range Interpretation Comme nts SOURCE: (test code = 8001) Cervical/Endocervical SLIDES: (test code = 8011) 1 LMP: (test code = 8021) NEXPLANON SPECIMEN ADEQUACY: (test code = 67019) (NOTE) INTERPRETATION: (test code = 54542) NILM/NO EPITH. 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 PRESS OPERATOR APPRENTICE: (test code = 8101) IONA Carnes(ASCP)IAC LOCATION: (test code = 66544) (NOTE) CPT: (test code = 8140) (NOTE) Shahab Pastrana AustinHPV HIGH RISK WITH GENOTYPE, [id number] 00:00:00* Test Item Value Reference Range Interpretation Comme nts HPV HIGH RISK INTERP (test c ode = 07436) NEGATIVE HPV 16 (test code = 72930) NEGATIVE HPV 18 (test code = 66751) NEGATIVE HPV, HR, OTHER GENOTYPES (te st code = 59471) NEGATIVE Shahab Pastrana AustinGC AND CHLAMYDIA AMPLIFIED, [id number] 00:00:00* Test Item Value Reference Range Interpretation Comme nts CHLAMYDIA, NAAT, THINPREP (t est code = 53346) NEGATIVE GONORRHEA, NAAT, THINPREP (t est code = 43859) NEGATIVE Shahab Pastrana AustinVAGINAL PATHOGENS DNA [id number] 00:00:00* Test Item Value Reference Range Interpretation Comme nts PATY SPECIES (test code = 03729) POSITIVE G. VAGINALIS (test code = 77701) NEGATIVE T. VAGINALIS (test code = 14738) NEGATIVE Shahab Pastrana AustinGC AND CHLAMYDIA AMPLIFIED, [id number] 00:00:00* Test Item Value Reference Range Interpretation Comme nts CHLAMYDIA, NAAT, THINPREP (t est code = 20671) NEGATIVE GONORRHEA, NAAT, THINPREP (t est code = 11034) NEGATIVE Shahab Pastrana AustinVAGINAL PATHOGENS DNA [id number] 00:00:00* Test Item Value Reference Range Interpretation Comme nts PATY SPECIES (test code = ) POSITIVE G. VAGINALIS (test code = 62369) NEGATIVE T. VAGINALIS (test code = ) NEGATIVE Shahab RoyalGC AND CHLAMYDIA AMPLIFIED, [id number] 00:00:00* Test Item Value Reference Range Interpretation Comme nts CHLAMYDIA, NAAT, THINPREP (t est code = 90697) NEGATIVE GONORRHEA, NAAT, THINPREP (t est code = 56766) NEGATIVE Shahab RoyalVAGINAL PATHOGENS DNA [id number] 00:00:00* Test Item Value Reference Range Interpretation Comme nts PATY SPECIES (test code = ) POSITIVE G. VAGINALIS (test code = 65787) NEGATIVE T. VAGINALIS (test code = ) NEGATIVE Shahab RoyalTSH, THIRD [id number] 00:00:00* Test Item Value Reference Range Interpretation Comme nts TSH, THIRD GENERATION (test code = 2821) 0.653 UIU/ML Shahab RyoalCBC W/AUTO [id number] 00:00:00* Test Item Value Reference Range Interpretation Comme nts WBC (test code = 1001) 10.5 K/UL RBC (test code = 1002) 5.09 M/UL HEMOGLOBIN (test code = 1003) 15.2 G/DL HEMATOCRIT (test code = 1004) 47.6 % MCV (test code = 1005) 93.5 fL MCH (test code = 1006) 29.9 PG MCHC (test code = 1007) 31.9 G/DL RDW (test code = 1038) 13.1 % NEUTROPHILS (test code = 1008) 72.8 % LYMPHOCYTES (test code = 1010) 17.2 % MONOCYTES (test code = 1011) 7.2 % EOSINOPHILS (test code = 1012) 1.6 % BASOPHILS (test code = 1013) 0.5 % IMMATURE GRANULOCYTES (test code = 1036) 0.7 % NUCLEATED RBCS (test code = 1065) 0.0 /100WBC'S PLATELET COUNT (test code = 1015) 261 K/UL ABSOLUTE NEUTROPHILS (test c ode = 1066) 7.63 K/UL ABSOLUTE LYMPHOCYTES (test c ode = 1067) 1.80 K/UL ABSOLUTE MONOCYTES (test cod e = 1068) 0.75 K/UL ABSOLUTE EOSINOPHILS (test c ode = 1040) 0.17 K/UL ABSOLUTE BASOPHILS (test cod e = 1069) 0.05 K/UL ABS IMMATURE GRANULOCYTES (t est code = 1020) 0.07 K/UL ABS NUCLEATED RBCS (test cod e = 39239) 0.00 K/UL Shahab RoyalCOMPREHENSIVE METABOLIC [id number] 00:00:00* Test Item Value Reference Range Interpretation Comme nts GLUCOSE (test code = 2217) 88 MG/DL BUN (test code = 2208) 11 MG/DL CREATININE (test code = 2214) 0.61 MG/DL eGFR (2020 CKD-EPI) (test code = 85790) 112 ML/MIN/1.73 CALC BUN/CREAT (test code = 2235) 18 RATIO SODIUM (test code = 2231) 142 MEQ/L POTASSIUM (test code = 2228) 4.5 MEQ/L CHLORIDE (test code = 2215) 103 MEQ/L CARBON DIOXIDE (test code = 2206) 25 MEQ/L CALCIUM (test code = 2209) 9.6 MG/DL PROTEIN, TOTAL (test code = 2229) 7.2 G/DL ALBUMIN (test code = 2201) 4.7 G/DL CALC GLOBULIN (test code = 2240) 2.5 G/DL CALC A/G RATIO (test code = 2234) 1.9 RATIO BILIRUBIN, TOTAL (test code = 2207) 0.5 MG/DL ALKALINE PHOSPHATASE (test code = 2204) 67 U/L AST (test code = 2218) 19 U/L ALT (test code = 2219) 21 U/L Shahab RoyalLIPID [id number] 00:00:00* Test Item Value Reference Range Interpretation Comme nts CHOLESTEROL (test code = 2210) 268 MG/DL TRIGLYCERIDES (test code = 2232) 65 MG/DL HDL CHOLESTEROL (test code = 2220) 83 MG/DL CALC LDL CHOL (test code = 2237) 169 MG/DL RISK RATIO LDL/HDL (test cod e = 2238) 2.04 RATIO Shahab RoyalANURAGH, THIRD [id number] 00:00:00* Test Item Value Reference Range Interpretation Comme nts TSH, THIRD GENERATION (test code = 2821) 0.653 UIU/ML Shahab RoyalCBC W/AUTO [id number] 00:00:00* Test Item Value Reference Range Interpretation Comme nts WBC (test code = 1001) 10.5 K/UL RBC (test code = 1002) 5.09 M/UL HEMOGLOBIN (test code = 1003) 15.2 G/DL HEMATOCRIT (test code = 1004) 47.6 % MCV (test code = 1005) 93.5 fL MCH (test code = 1006) 29.9 PG MCHC (test code = 1007) 31.9 G/DL RDW (test code = 1038) 13.1 % NEUTROPHILS (test code = 1008) 72.8 % LYMPHOCYTES (test code = 1010) 17.2 % MONOCYTES (test code = 1011) 7.2 % EOSINOPHILS (test code = 1012) 1.6 % BASOPHILS (test code = 1013) 0.5 % IMMATURE GRANULOCYTES (test code = 1036) 0.7 % NUCLEATED RBCS (test code = 1065) 0.0 /100WBC'S PLATELET COUNT (test code = 1015) 261 K/UL ABSOLUTE NEUTROPHILS (test c ode = 1066) 7.63 K/UL ABSOLUTE LYMPHOCYTES (test c ode = 1067) 1.80 K/UL ABSOLUTE MONOCYTES (test cod e = 1068) 0.75 K/UL ABSOLUTE EOSINOPHILS (test c ode = 1040) 0.17 K/UL ABSOLUTE BASOPHILS (test cod e = 1069) 0.05 K/UL ABS IMMATURE GRANULOCYTES (t est code = 1020) 0.07 K/UL ABS NUCLEATED RBCS (test cod e = 50913) 0.00 K/UL Shahab RoyalCOMPREHENSIVE METABOLIC [id number] 00:00:00* Test Item Value Reference Range Interpretation Comme nts GLUCOSE (test code = 2217) 88 MG/DL BUN (test code = 2208) 11 MG/DL CREATININE (test code = 2214) 0.61 MG/DL eGFR (2020 CKD-EPI) (test code = 10276) 112 ML/MIN/1.73 CALC BUN/CREAT (test code = 2235) 18 RATIO SODIUM (test code = 2231) 142 MEQ/L POTASSIUM (test code = 2228) 4.5 MEQ/L CHLORIDE (test code = 2215) 103 MEQ/L CARBON DIOXIDE (test code = 2206) 25 MEQ/L CALCIUM (test code = 2209) 9.6 MG/DL PROTEIN, TOTAL (test code = 2229) 7.2 G/DL ALBUMIN (test code = 2201) 4.7 G/DL CALC GLOBULIN (test code = 2240) 2.5 G/DL CALC A/G RATIO (test code = 2234) 1.9 RATIO BILIRUBIN, TOTAL (test code = 2207) 0.5 MG/DL ALKALINE PHOSPHATASE (test code = 2204) 67 U/L AST (test code = 2218) 19 U/L ALT (test code = 2219) 21 U/L Shahab RoyalLIPID [id number] 00:00:00* Test Item Value Reference Range Interpretation Comme nts CHOLESTEROL (test code = 2210) 268 MG/DL TRIGLYCERIDES (test code = 2232) 65 MG/DL HDL CHOLESTEROL (test code = 2220) 83 MG/DL CALC LDL CHOL (test code = 2237) 169 MG/DL RISK RATIO LDL/HDL (test cod e = 2238) 2.04 RATIO Shahab RoyalTSH, THIRD [id number] 00:00:00* Test Item Value Reference Range Interpretation Comme nts TSH, THIRD GENERATION (test code = 2821) 0.653 UIU/ML Shahab RoyalCBC W/AUTO [id number] 00:00:00* Test Item Value Reference Range Interpretation Comme nts WBC (test code = 1001) 10.5 K/UL RBC (test code = 1002) 5.09 M/UL HEMOGLOBIN (test code = 1003) 15.2 G/DL HEMATOCRIT (test code = 1004) 47.6 % MCV (test code = 1005) 93.5 fL MCH (test code = 1006) 29.9 PG MCHC (test code = 1007) 31.9 G/DL RDW (test code = 1038) 13.1 % NEUTROPHILS (test code = 1008) 72.8 % LYMPHOCYTES (test code = 1010) 17.2 % MONOCYTES (test code = 1011) 7.2 % EOSINOPHILS (test code = 1012) 1.6 % BASOPHILS (test code = 1013) 0.5 % IMMATURE GRANULOCYTES (test code = 1036) 0.7 % NUCLEATED RBCS (test code = 1065) 0.0 /100WBC'S PLATELET COUNT (test code = 1015) 261 K/UL ABSOLUTE NEUTROPHILS (test c ode = 1066) 7.63 K/UL ABSOLUTE LYMPHOCYTES (test c ode = 1067) 1.80 K/UL ABSOLUTE MONOCYTES (test cod e = 1068) 0.75 K/UL ABSOLUTE EOSINOPHILS (test c ode = 1040) 0.17 K/UL ABSOLUTE BASOPHILS (test cod e = 1069) 0.05 K/UL ABS IMMATURE GRANULOCYTES (t est code = 1020) 0.07 K/UL ABS NUCLEATED RBCS (test cod e = 99063) 0.00 K/UL Shahab RoyalCOMPREHENSIVE METABOLIC [id number] 00:00:00* Test Item Value Reference Range Interpretation Comme nts GLUCOSE (test code = 2217) 88 MG/DL BUN (test code = 2208) 11 MG/DL CREATININE (test code = 2214) 0.61 MG/DL eGFR (2020 CKD-EPI) (test code = 53900) 112 ML/MIN/1.73 CALC BUN/CREAT (test code = 2235) 18 RATIO SODIUM (test code = 2231) 142 MEQ/L POTASSIUM (test code = 2228) 4.5 MEQ/L CHLORIDE (test code = 2215) 103 MEQ/L CARBON DIOXIDE (test code = 2206) 25 MEQ/L CALCIUM (test code = 2209) 9.6 MG/DL PROTEIN, TOTAL (test code = 2229) 7.2 G/DL ALBUMIN (test code = 2201) 4.7 G/DL CALC GLOBULIN (test code = 2240) 2.5 G/DL CALC A/G RATIO (test code = 2234) 1.9 RATIO BILIRUBIN, TOTAL (test code = 2207) 0.5 MG/DL ALKALINE PHOSPHATASE (test code = 2204) 67 U/L AST (test code = 2218) 19 U/L ALT (test code = 2219) 21 U/L Shahab Pastrana AustinLIPID [id number] 00:00:00* Test Item Value Reference Range Interpretation Comme nts CHOLESTEROL (test code = 2210) 268 MG/DL TRIGLYCERIDES (test code = 2232) 65 MG/DL HDL CHOLESTEROL (test code = 2220) 83 MG/DL CALC LDL CHOL (test code = 2237) 169 MG/DL RISK RATIO LDL/HDL (test cod e = 2238) 2.04 RATIO Shahab Royal Notes Date/Time Note Provider Source Shahab Jerez [facility]2024-09-30 00:00:00 Shahab Jerez [facility]2024-09-04 00:00:00 Shahab Jerez [facility]
--- NOTE | 2025-07-23 12:48 | RAD REPORT ---
EXAM: CT brain without contrast HISTORY: DIZZINESS COMPARISON: None TECHNIQUE: Multiple contiguous axial images were obtained and a CT of the brain without contrast. Sag ittal and coronal reformats were performed. One or more of the following dose reduction techniques were used: Automated exposure control, adjust ment of the mA and/or kV according to patient size, and/or iterative reconstruction. FINDINGS: No evidence of hydrocephalus, intracranial hemorrhage, or extra-axial fluid collection. The brain is normal in morphology. No evidence of midline shift or areas of brain edema. The calvarium is intact. The visualized paranasal sinuses and mastoid air cells are essentially clear . IMPRESSION: No evidence of acute intracranial abnormality.
[2025-07-23 12:50] LABS: Absolute Lymphocytes (CBC) 2.4 K/uL (0.7-4.9); Hematocrit 40.2 % (36.0-45.0); Hemoglobin 13.6 g/dL (12.0-15.0); MCH 29.9 pg (27.0-35.0); MCHC 33.8 g/dL (32.0-36.0); MCV 88.4 fL (80-100); MPV 9.0 fL (7.6-11.3); Nucleated RBC Absolute Count 0.0 (0-0); Nucleated Red Blood Cells % 0.0 % (0-0); RBC Red Blood Cell Count 4.55 M/uL (3.86-4.86); White Blood Count 9.40 thou/uL (4.3-10.9)
[2025-07-23 13:09] LABS: ALT/SGPT 26.0 U/L (13-56); AST/SGOT 15.0 U/L (15-37); Albumin 3.5 g/dL (3.4-5.0); Albumin/Globulin Ratio 0.9 (1.1-1.8); Alkaline Phosphatase 75.0 U/L (45-117); Anion Gap 7.6 mEq/L (5.0-15.0); BUN Blood Urea Nitrogen 10.0 mg/dL (7-18); Globulin 3.9 g/dL (2.3-3.5); Glucose Level 121.0 mg/dL (74-106); Magnesium 2.1 mg/dL (1.6-2.4); NT PRO-BNP 22.0 pg/mL (<125); Potassium 3.6 mEq/L (3.5-5.1); Troponin High Sensitivity 5.2 pg/mL (<58.9)
[2025-07-23] MEDS ORDERED: NA CHLORIDE 0.9% 1,000 ML ONE ×2 (13:12→14:30)
[2025-07-23 13:17] LABS: Urine Culture Reflex Order NOT NEEDED; Urine Microscopic Reflex YN ORDER UMIC
--- NOTE | 2025-07-23 13:53 | RAD REPORT ---
EXAMINATION: ONE VIEW CHEST XR CLINICAL INDICATION: PAIN TECHNIQUE: Frontal chest projection is submitted. Examination is limited by patient positioning and t echnique. COMPARISON: 07/09/2023 FINDINGS: The lungs are well inflated and clear. The heart is upper limit of normal in size. No displaced fract ures identified. IMPRESSION: No acute intrathoracic abnormalities.
--- NOTE | 2025-07-23 15:16 | EDPHYS ---
Physician Documentation [facility] Name: Grayson Morales Age: 49 yrs Sex: Female : 1975 Arrival Date: 07/23/2025 Time: 12:13 Bed 5 Private MD: LAURA Physician Zak Irving HPI: 07/23 17:58 This 49 yrs old Black Female presents to ER via Ambulatory with complaints of dr5 Dizziness, Numbness. 17:58 The patient presents with dizziness, generalized weakness. Onset: The symptoms/episode dr5 began/occurred 3 day(s) ago. Patient is a 49-year-old female with history of asthma and hypertension coming in with dizziness that is intermittent since Sunday. Patient reports that she drinks alcohol daily at night and only drinks Pepper during the day. Patient also reports that she has been taking her blood pressure medication which includes amlodipine, isosorbide, and hydrochlorothiazide. Patient reports that she also has had numbness to her right thumb that has slowly been moving up her arm despite intermittent. Patient denies chest pain, shortness of breath, abdominal pain, nausea, vomit, diarrhea.. Historical: - Allergies: 12:18 Aspirin; ll1 - PMHx: 12:18 Asthma; Hypertensive disorder; ll1 - Immunization history:: Adult Immunizations up to date. - Infectious Disease History:: Denies. - Social history:: Smoking status: Patient reports the use of cigarette tobacco products, smokes one-half pack cigarettes per day. ROS: 17:58 Constitutional: as per hpi dr5 Exam: 17:58 Constitutional: This is a well developed, well nourished patient who is awake, alert, dr5 and in no acute distress. Head/Face: Normocephalic, atraumatic. Eyes: Pupils equal round and reactive to light, extra-ocular motions intact. Lids and lashes normal. Conjunctiva and sclera are non-icteric and not injected. Cornea within normal limits. Periorbital areas with no swelling, redness, or edema. ENT: Nares patent. No nasal discharge, no septal abnormalities noted. Tympanic membranes are normal and external auditory canals are clear. Oropharynx with no redness, swelling, or masses, exudates, or evidence of obstruction, uvula midline. Mucous membranes moist. Neck: Trachea midline, no thyromegaly or masses palpated, and no cervical lymphadenopathy. Supple, full range of motion without nuchal rigidity, or vertebral point tenderness. No Meningismus. Chest/axilla: Normal chest wall appearance and motion. Nontender with no deformity. No lesions are appreciated. Cardiovascular: Regular rate and rhythm with a normal S1 and S2. Normal PMI, no JVD. No pulse deficits. Respiratory: Lungs have equal breath sounds bilaterally, clear to auscultation. No rales, rhonchi or wheezes noted. No increased work of breathing, no retractions or nasal flaring. Back: No spinal tenderness. No costovertebral tenderness. Full range of motion. Skin: Warm, dry with normal turgor. Normal color with no rashes, no lesions, and no evidence of cellulitis. MS/ Extremity: Pulses equal, no cyanosis. Neurovascular intact. Full, normal range of motion. Neuro: Awake and alert, GCS 15, oriented to person, place, time, and situation. Cranial nerves II-XII grossly intact. Motor strength 5/5 in all extremities. Sensory grossly intact. Cerebellar exam normal. Normal gait. Vital Signs: 12:23 BP 128 / 81; Pulse 91; Resp 17; Temp 97.5; Pulse Ox 100% ; Weight 65.77 kg; Height 5 ll1 ft. 4 in. ; Pain 0/10; 13:49 BP 120 / 84; Pulse 83; Resp 17 S; Pulse Ox 95% on R/A; ar8 14:15 BP 132 / 81; Pulse 81; Resp 18; Pulse Ox 94% on R/A; ar8 15:00 BP 118 / 65; Pulse 80; Resp 18 S; Pulse Ox 97% on R/A; Pain 0/10; ar8 15:30 BP 117 / 68; Pulse 76; Resp 16; Pulse Ox 99% on R/A; ar8 12:23 Body Mass Index 24.89 (65.77 kg, 162.56 cm) ll1 12:23 Pain Scale: Adult ll1 15:00 Pain Scale: Adult ar8 NIH Stroke Scale Scores: 17:58 NIHSS Score: 0 dr5 MDM: 12:16 Medical Screening Exam initiated dr5 17:58 Differential diagnosis: cardiac arrhythmia, generalized weakness, hypovolemia, dr5 near-syncope, syncope, vertigo. Data reviewed: vital signs, nurses notes, lab test result(s), cardiac enzymes, troponin i, CBC, white blood cell count, hemoglobin, hematocrit, platelets, electrolytes, sodium, potassium, chloride, serum bicarbonate, BUN, creatinine, serum glucose, urinalysis, EKG, radiologic studies, CT scan, plain films. Consideration of Admission/Observation Escalation of care including admission/observation considered. Escalation considered patient's symptoms did not resolve and abnormality noted on blood work. I considered the following discharge prescriptions or medication management in the emergency department I discussed and recommended Over The Counter medications, Medications were administered in the Emergency Department. See MAR. Independent interpretation of the following test(s) in the Emergency Department X-Ray: My interpretation is Independent interpretation of x-ray does not reveal pneumonia. Independent interpretation of CT scan does not reveal obvious bleed.. Care significantly affected by the following chronic conditions: Hypertension, Asthma. Care significantly affected by the following Social Determinants of Health: Poor access to healthcare and/or lack of insurance, Poor access to transportation, Problems related to employment. Counseling: I had a detailed discussion with the patient and/or guardian regarding the historical points, exam findings, and any diagnostic results supporting the discharge/admit diagnosis, the presence of at least one elevated blood pressure reading (>120/80) during this emergency department visit, lab results, radiology results, the need for outpatient follow up, for definitive care, a family practitioner, a neurologist, to return to the emergency department if symptoms worsen or persist or if there are any questions or concerns that arise at home. Medication response: Normal saline x 2 L. Response to treatment: the patient's symptoms have resolved after treatment, the patient's condition has returned to base line, the patient is now symptom free. Special discussion: I discussed with the patient/guardian in detail that at this point there is no indication for admission to the hospital. It is understood, however, that if the symptoms persist or worsen the patient needs to return immediately for re-evaluation. Based on the history and exam findings, there is no indication for further emergent testing or inpatient evaluation. I discussed with the patient/guardian the need to see the primary care provider for further evaluation of the symptoms. ED course: Patient reports he is much better. All lab work, x-ray, and CT scan were printed and given to patient. All results were discussed with patient. Patient reports he is feels much better and not dizzy after fluid rehydration. Recommend patient follow-up primary care doctor. All questions answered. Strict ER precautions given. 07/23 12:28 Order name: CBC with Diff; Complete Time: 12:56 dr5 07/23 12:28 Order name: Magnesium; Complete Time: 13:24 dr5 07/23 12:28 Order name: NT PRO-BNP; Complete Time: 13:24 dr5 07/23 12:28 Order name: Troponin HS; Complete Time: 13:24 dr5 07/23 12:28 Order name: CMP; Complete Time: 13:24 dr5 07/23 12:28 Order name: UA Rfx Collins Cult if indicated; Complete Time: 13:24 dr5 07/23 12:28 Order name: XRAY Chest (1 view); Complete Time: 14:21 dr5 07/23 12:28 Order name: CT Head Brain wo Cont; Complete Time: 12:56 dr5 07/23 12:28 Order name: Cardiac monitoring; Complete Time: 12:46 dr5 07/23 12:28 Order name: EKG - Nurse/Tech; Complete Time: 12:46 dr5 07/23 12:28 Order name: IV Saline Lock; Complete Time: 12:46 dr5 07/23 12:28 Order name: Labs collected and sent; Complete Time: 12:46 dr5 07/23 12:28 Order name: O2 Per Protocol; Complete Time: 12:46 dr5 07/23 12:28 Order name: O2 Sat Monitoring; Complete Time: 12:46 dr5 EC:50 Rate is 80 beats/min. Rhythm is regular. QRS [place] is Normal. [place] interval is normal at dr5 172 msec. QRS interval is normal at 90 msec. QT interval is normal at 394 msec. Clinical impression: Normal ECG, No change from prior ECG, and No evidence of ischemia. Administered Medications: 13:16 Drug: NS 0.9% IV 1000 ml IV at 1000 ml once; to be given as a bolus over 60 minutes jp5 Route: IV; Rate: 1000 ml; Site: left antecubital; 14:20 Follow up: Response: No adverse reaction; IV Status: Completed infusion; IV Intake: ar8 1000ml 14:31 Drug: NS 0.9% IV 1000 ml IV at 1000 ml once; to be given as a bolus over 60 minutes ar8 Route: IV; Rate: 1000 ml; Site: left antecubital; Disposition Summary: 07/23/25 15:16 Discharge Ordered Notes: Location: Home dr5 Condition: Stable dr5 Diagnosis - Dehydration dr5 Followup: dr5 - With: Emergency Department - When: As needed - Reason: Worsening of condition Followup: dr5 - With: Private Physician - When: 1 - 2 days - Reason: Recheck today's complaints, Continuance of care, Re-evaluation by your physician Discharge Instructions: - Discharge Summary Sheet dr5 - Dehydration, Adult dr5 Forms: - Medication Reconciliation Form dr5 - Patient Portal Instructions dr5 - Leadership Thank You Letter dr5 NIH Stroke Scale - NIH Stroke Score Date: 07/23/2025 Time: 17:58 Total Score = 0 10. Dysarthria (speech clarity - read or repeat words) - 0(Normal) 11. Extinction and Inattention (visual/tactile/auditory/spatial/personal) - 0(No abnormality) 1a. Level of Consciousness (LOC) - 0(Alert) 1b. Level of Consciousness (LOC) (Month \T\ Age) - 0(Both) 1c. LOC Commands (Open \T\ Closes Eyes/Is Manager) - 0(Both) 2. Best Gaze (Lateral Gaze Paresis) - 0(Normal) 3. Visual Field Loss - 0(No visual loss) 4. Facial Palsy - 0(Normal) 5a. Left Arm: Motor (10-second hold) - 0(No drift) 5b. Right Arm: Motor (10-second hold) - 0(No drift) 6a. Left Leg: Motor (5-second hold - always test supine) - 0(No drift) 6b. Right Leg: Motor (5-second hold - always test supine) - 0(No drift) 7. Limb Ataxia (finger/nose \T\ heel/mcpherson - test with eyes open) - 0(Absent) 8. Sensory Loss (pinprick arms/legs/face) - 0(Normal) 9. Best Language: Aphasia (description/naming/reading) - 0(No aphasia) Initials: dr5 Addendum: 07/25/2025 07:29 Co-signature as Attending Physician, Zak Irving MD I agree with the [facility] assessment and plan of care. Signatures: Dispatcher [employer] Zak Cohen MD MD cha Lewis, Lynsay RN RN ll1 Sugey Nelson RN RN jp5 Silviano Marcial, IVORY CARVER-C IVORY CARVER-Cdr5 Brian, Rc, RN RN ar8 Corrections: (The following items were deleted from the chart) 07/23 12: 12:28 CBC+H.LAB.BRZ ordered. EDMS EDMS 12:28 MAGNESIUM+C.LAB.BRZ ordered. EDMS EDMS 12:28 PROBNP+C.LAB.BRZ ordered. EDMS EDMS 12:28 Troponin High Sensitivity+C.LAB.BRZ ordered. EDMS EDMS 12:28 COMPREHENSIVE METABOLIC PANEL+C.LAB.BRZ ordered. EDMS EDMS 12:28 UA Rfx Collins Cult if indicated+U.LAB.BRZ ordered. EDMS EDMS : 12:28 Chest Single View+RAD.RAD.BRZ ordered. EDMS EDMS 12:29 Head Brain Wo Cont+CT.RAD.BRZ ordered. EDMS EDMS
--- NOTE | 2025-07-23 15:16 | ER ---
Nurse's Notes [facility] Name: Grayson Morales Age: 49 yrs Sex: Female : 1975 Arrival Date: 07/23/2025 Time: 12:13 Bed 5 Private MD: Diagnosis: Dehydration Presentation: 07/23 12:23 Chief complaint: Patient states: Dizziness since Sunday getting worse. R hand thumb ll1 numbness started Sunday. Now entire R arm numbness. Her moms mecstevenzine only helps for 1 hour. Coronavirus screen: Client denies travel out of the [place] in the last 14 days. At this time, the client does not indicate any symptoms associated with coronavirus-19. Ebola Screen: Patient denies travel to an Ebola-affected area in the 21 days before illness onset. Initial Sepsis Screen: Does the patient meet any 2 criteria? No. Patient's initial sepsis screen is negative. Does the patient have a suspected source of infection? No. Patient's initial sepsis screen is negative. Risk Assessment: Do you want to hurt yourself or someone else? Patient reports no desire to harm self or others. Onset of symptoms was July 20, 2025. 12:23 Method Of Arrival: Ambulatory ll1 12:23 Acuity: DEIRDRE 3 ll1 Historical: - Allergies: 12:18 Aspirin; ll1 - PMHx: 12:18 Asthma; Hypertensive disorder; ll1 - Immunization history:: Adult Immunizations up to date. - Infectious Disease History:: Denies. - Social history:: Smoking status: Patient reports the use of cigarette tobacco products, smokes one-half pack cigarettes per day. Screenin:46 [facility] ED Fall Risk Assessment (Adult) History of falling in the last 3 months, ar8 including since admission No falls in past 3 months (0 pts) Confusion or Disorientation No (0 pts) Intoxicated or Sedated No (0 pts) Impaired Gait No (0 pts) Mobility Assist Device Used No (0 pt) Altered Elimination No (0 pt) Score/Fall Risk Level 0 - 2 = Low Risk Oriented to surroundings, Maintained a safe environment. Abuse screen: Denies threats or abuse. Nutritional screening: No deficits noted. Tuberculosis screening: No symptoms or risk factors identified. Assessment: 13:30 General: Appears in no apparent distress. Behavior is calm, cooperative. ar8 13:30 Visitor restriction implemented due to in-person visitations may lead to the ar8 transmission of an infectious agent. Restricted visitation is valid for not more than 5 days unless renewed by the attending provider. Pain: Denies pain. Neuro: Level of Consciousness is awake, alert, obeys commands, Oriented to person, place, time, situation, Reports dizziness. Cardiovascular: No deficits noted. Cardiovascular: Patient's skin is warm and dry. Respiratory: Airway is patent Respiratory effort is even, unlabored, Respiratory pattern is regular, symmetrical. GI: No signs and/or symptoms were reported involving the gastrointestinal system. : No signs and/or symptoms were reported regarding the genitourinary system. EENT: No signs and/or symptoms were reported regarding the EENT system. Vital Signs: 12:23 BP 128 / 81; Pulse 91; Resp 17; Temp 97.5; Pulse Ox 100% ; Weight 65.77 kg; Height 5 ll1 ft. 4 in. ; Pain 0/10; 13:49 BP 120 / 84; Pulse 83; Resp 17 S; Pulse Ox 95% on R/A; ar8 14:15 BP 132 / 81; Pulse 81; Resp 18; Pulse Ox 94% on R/A; ar8 15:00 BP 118 / 65; Pulse 80; Resp 18 S; Pulse Ox 97% on R/A; Pain 0/10; ar8 15:30 BP 117 / 68; Pulse 76; Resp 16; Pulse Ox 99% on R/A; ar8 12:23 Body Mass Index 24.89 (65.77 kg, 162.56 cm) ll1 12:23 Pain Scale: Adult ll1 15:00 Pain Scale: Adult ar8 NIH Stroke Scale Scores: 17:58 NIHSS Score: 0 dr5 ED Course: 12:16 Patient arrived in ED. al6 12:16 Silviano Marcial FNP-C [facility]. dr5 12:16 Zak Irving MD is Attending Physician. dr5 12:18 Arm band placed on. ll1 12:24 Triage completed. ll1 12:26 Patient placed in an exam room, on a stretcher. ll1 12:41 CT Head Brain wo Cont In Process Unspecified. EDMS 12:45 Initial lab(s) drawn, by me, sent to lab. Inserted saline lock: 20 gauge in left rk3 antecubital area, using aseptic technique. Blood collected. Flushed with 10 mL NS. 13:30 Bed in low position. Call light in reach. Side rails up X 1. Provided Education on: jp5 call light. 13:30 No provider procedures requiring assistance completed. jp5 13:39 XRAY Chest (1 view) In Process Unspecified. EDMS 13:49 Rc Torres, RN is Primary Nurse. ar8 16:26 IV discontinued, intact, bleeding controlled, No redness/swelling at site. Pressure jp5 dressing applied. Administered Medications: 13:16 Drug: NS 0.9% IV 1000 ml IV at 1000 ml once; to be given as a bolus over 60 minutes jp5 Route: IV; Rate: 1000 ml; Site: left antecubital; 14:20 Follow up: Response: No adverse reaction; IV Status: Completed infusion; IV Intake: ar8 1000ml 14:31 Drug: NS 0.9% IV 1000 ml IV at 1000 ml once; to be given as a bolus over 60 minutes ar8 Route: IV; Rate: 1000 ml; Site: left antecubital; Medication: 13:30 VIS not applicable for this client. jp5 Intake: 14:20 IV: 1000ml; Total: 1000ml. ar8 Outcome: 15:16 Discharge ordered by . dr5 16:26 Discharged to home ambulatory, jp5 16:26 Condition: good 16:26 Discharge instructions given to patient, Instructed on discharge instructions, follow up and referral plans. Demonstrated understanding of instructions, follow-up care, 16:27 Patient left the ED. jp5 NIH Stroke Scale - NIH Stroke Score Date: 07/23/2025 Time: 17:58 Total Score = 0 10. Dysarthria (speech clarity - read or repeat words) - 0(Normal) 11. Extinction and Inattention (visual/tactile/auditory/spatial/personal) - 0(No abnormality) 1a. Level of Consciousness (LOC) - 0(Alert) 1b. Level of Consciousness (LOC) (Month \T\ Age) - 0(Both) 1c. LOC Commands (Open \T\ Closes Eyes/Detective) - 0(Both) 2. Best Gaze (Lateral Gaze Paresis) - 0(Normal) 3. Visual Field Loss - 0(No visual loss) 4. Facial Palsy - 0(Normal) 5a. Left Arm: Motor (10-second hold) - 0(No drift) 5b. Right Arm: Motor (10-second hold) - 0(No drift) 6a. Left Leg: Motor (5-second hold - always test supine) - 0(No drift) 6b. Right Leg: Motor (5-second hold - always test supine) - 0(No drift) 7. Limb Ataxia (finger/nose \T\ heel/mcpherson - test with eyes open) - 0(Absent) 8. Sensory Loss (pinprick arms/legs/face) - 0(Normal) 9. Best Language: Aphasia (description/naming/reading) - 0(No aphasia) Initials: dr5 Signatures: Dispatcher [employer] EDAddy Esparza RN RN ll1 Sugey Nelson RN RN jp5 Silviano Marcial, MASH PREPARATORY OPERATOR-C MASH PREPARATORY OPERATOR-Cdr5 Rossy Dixon al6 Sheron Swan rk3 Rc Torres RN RN ar8 Corrections: (The following items were deleted from the chart) 12:27 12:23 BP 128 / 81; Pulse 91bpm; Resp 17bpm; Pulse Ox 100%; Temp 97.5F; ll1 ll1
[2025-07-23 17:08] VITALS: TEMP 97.5
[2025-07-23 17:32] VITALS: BP 117/68; O2SAT 99
== END 2025-07-23 16:27 | disposition home or self-care (01) ==
LOC: ER 12:13
DX: E86.0 Dehydration (principal); I10 Essential (primary) hypertension; F17.210 Nicotine dependence, cigarettes, uncomplicated
CPT/HCPCS: 93005; 85025; 81001; 36415; 83735; 84484; 80053; 83880; 70450; 71045; 96360; 99284; J7030 ×2